=== PATIENT | male | born 1960 | race Caucasian/White ===

== ENCOUNTER 2017-05-13 14:12 | Outpatient (CLI) | payer MEDICARE | END 2017-05-13 14:13 | disposition home or self-care (01) | LOC: BICRAD 14:12 | PROVIDERS: ATTEND Dermatology | DX: R06.02 Shortness of breath (principal) | CPT/HCPCS: 71046 ==

== ENCOUNTER 2017-08-23 16:23 | Inpatient (IN) | payer MEDICARE, SELFPAY ==
[~2017-08-23 16:23] MED LIST: ISOVUE-370 76%-LOCM 1 ML ONE
[2017-08-23] MEDS ORDERED: Ketorolac Tromethamine 30 MG/ML VIAL ONE (17:04)
[2017-08-23 17:43] LABS: #Basophils 0.1 thou/uL (0.0-0.2); #Eosinphils 0.1 thou/uL (0.0-0.7); #Lymphocytes 2.5 thou/uL (1.20-3.40); #Neutrophils 8.6 thou/uL (1.40-6.50); %Basophils 0.5 % (0.0-1.0); %Eosinophils 0.5 % (0.0-10.0); %Lymphocytes 20.2 % (21.0-51.0); %Monocytes 8.3 % (0.0-10.0); %Neutrophils 70.5 % (42.0-75.0); Hemoglobin 16.4 g/dL (14.0-18.0); Mean Corpuscular HGB CONC 34.7 g/dL (32.0-36.0); Mean Corpuscular Hemoglobin 30.3 pg (27.0-31.0); Mean Corpuscular Volume 87.2 fl (80.0-94.0); Mean Platelet Volume 8.7 fL (7.4-10.4); Platelet Count 158 thou/uL (130-400); RBC Distribution Width 12.6 % (11.5-14.5); Red Blood Cell (RBC) Count 5.43 mill/uL (4.70-6.10); White Blood Cell (WBC) Count 12.2 thou/uL (4.8-10.8)
[2017-08-23] MEDS ORDERED: Ondansetron ODT 4 MG TAB ONE (17:43)
--- NOTE | 2017-08-23 17:57 | RAD ---
PORTABLE UPRIGHT FRONTAL CHEST RADIOGRAPH 08/23/17 COMPARISON: 05/13/17 HISTORY: Tachycardia. FINDINGS: No pneumothorax, pleural fluid, focal consolidation or alveolar edema. The cardiac silhouette is mild ly prominent suggesting magnification and/or enlargement. IMPRESSION: No acute findings. POS: [facility]
[2017-08-23 18:09] LABS: ALT (SGPT) 20 U/L (8-55); AST (SGOT) 16 U/L (5-34); Albumin 4.1 g/dL (3.5-5.0); Alkaline Phosphatase 167 U/L (40-150); Anion Gap 17 mmol/L (10-20); BUN (Urea Nitrogen) 25 mg/dL (8.4-25.7); Bilirubin, Total 0.2 mg/dL (0.2-1.2); CK (CPK) 37 U/L (30-200); Calc. Creatinine Clearance 0 mL/min (70-130); Calcium 9.7 mg/dL (7.8-10.44); Carbon Dioxide 20 mmol/L (22-29); Chloride 99 mmol/L (98-107); Estimated GFR-MDRD 66; Globulin 3.3 g/dL (2.4-3.5); Glucose 455 mg/dL (70-105); Lipase 27 U/L (8-78); Magnesium 1.8 mg/dL (1.6-2.6); Potassium 4.3 mmol/L (3.5-5.1); Protein, Total 7.4 g/dL (6.0-8.3); Sodium 132 mmol/L (136-145)
[2017-08-23 18:13] LABS: CKMB 1.8 ng/mL (0-6.6); Troponin I 0.126 ng/mL (< 0.028)
[2017-08-23 18:48] LABS: PTT 27.9 SEC (22.9-36.1); Prothrombin Time 13.3 SEC (12.0-14.7)
[2017-08-23] MEDS ORDERED: diphenhydrAMINE 50 MG/ML VIAL ONE (18:57)
[2017-08-23] MEDS ORDERED: Metoclopramide HCl 10 MG/2 ML VIAL ONE (18:57)
--- NOTE | 2017-08-23 19:22 | CT ---
HEAD CT WITHOUT CONTRAST 08/23/17 COMPARISON: 09/01/16 HISTORY: Headache. TECHNIQUE: Serial axial CT imaging at 5 mm intervals from vertex through skull base without contrast. FINDINGS: The imaged paranasal sinuses and mastoid air cells appear unremarkable. No acute osseous abnormality is noted. No intracranial hemorrhage, midline shift, mass effect or ventricular enlargement. IMPRESSION: No acute findings. POS: [facility]
[2017-08-23] MEDS ORDERED: Enoxaparin Sodium 100 MG/ML SYRINGE ONE (20:50)
[2017-08-23] MEDS ORDERED: Enoxaparin Sodium 40 MG/0.4 ML SYRINGE ONE ×2 (20:50→20:53)
[2017-08-23] MEDS ORDERED: Acetaminophen 500 MG TAB ONE (20:53)
--- NOTE | 2017-08-23 21:00 | CT ---
CT ANGIOGRAM OF THE CHEST 08/23/17 COMPARISON: 09/01/16 HISTORY: Dyspnea, chest pain, headache, cough and congestion. TECHNIQUE: Serial axial CT imaging is obtained at 2.5 mm intervals from the thoracic inlet through the upper abd omen with IV contrast per stone protocol. Coronal and sagittal 3D reformatted imaging obtained. FINDINGS: There is no axillary lymphadenopathy seen. No pericardial, mediastinal or pleural fluid. No mediastin al or hilar adenopathy. There is reflux of contrast media into the hepatic veins and IVC which may be on the basis of subopti mal cardiac output. There are large bilateral pulmonary emboli within the main pulmonary artery supplying the right lung and the left lung with extension into numerous segmental, subsegmental and lobar pulmonary arteries i nvolving bilateral upper lobes, bilateral lower lobes, and right middle lobe. When compared to prior exam, the right ventricle appears slightly dilated and there is flattening of the interventricular se ptum which could signify right heart strain. This could be best assessed via echocardiogram. There is no pneumothorax noted. The lung parenchyma demonstrates no acute finding on either side. No acute osseous abnormality. IMPRESSION: Extensive bilateral pulmonary arterial embolism involving bilateral main pulmonary arteries with exte nsion into lobar, segmental, and subsegmental pulmonary arteries throughout both lungs. Reflux of con trast media into the IVC and hepatic veins which may be on the basis of suboptimal cardiac output and prominence of right ventricle with flattening of interventricular system may signify change associat ed with right heart strain. Echocardiogram may be beneficial for further assessment. Bilateral pulmon everett emboli discussed with Dr. Mahajan at 7:35 p.m., 08/23/17. Code CR POS: [facility]
[2017-08-23] MEDS ORDERED: Bisacodyl 5 MG TAB PO PRN (22:23)
[2017-08-23] MEDS ORDERED: Acetaminophen 650 MG Suppository PR PRN (22:23)
[2017-08-23] MEDS ORDERED: Acetaminophen 325 MG TAB PO PRN (22:23)
[2017-08-23] MEDS ORDERED: Enoxaparin Sodium 120 MG/0.8 ML SYRINGE SC SCH (22:30)
[2017-08-23] MEDS ORDERED: Dextrose 50% Abboject 50 ML SYRINGE SLOW IVP PRN (22:37)
[2017-08-23] MEDS ORDERED: Dextrose 5% in Water 1,000 ML IV PRN (22:37)
[2017-08-23] MEDS ORDERED: Fentanyl 100 MCG/2 ML VIAL ONE (23:04)
--- NOTE | 2017-08-24 00:50 | HP ---
PRIMARY CARE PROVIDER: Denny Armas M.D., in [place]. CHIEF COMPLAINT: Shortness of breath. HISTORY OF PRESENT ILLNESS: Mr. Gupta is a pleasant 57-year-old gentleman who was seen at [facility] on 08/23/2017. He reports that he developed sudden onset shortness of breath around noon today. He reports shortnes s of breath with exertion. He denies having any chest pain at that time. He also reports having a h eadache at that time. He was seen by his primary care provider and sent to the emergency room. In [facility] emergency room, he developed chest pain, sharp, left-sided, 6-7/10, accompanied by ongoing headach e as well as shortness of breath. He denies any fevers or chills. He denies any nausea or vomiting. Approximately a year ago, he was diagnosed with unprovoked pulmonary embolism. He reportedly took El iquis for 6 months and has been off of Eliquis for the last 6 months. REVIEW OF SYSTEMS: All other systems were reviewed and were negative except for the pertinent positi ves noted above. PAST MEDICAL HISTORY: Deep vein thrombosis; pulmonary embolism; gastroesophageal reflux disease; mor bid obesity; diabetes mellitus, type 2; hypertension; and seizure disorder. PAST SURGICAL HISTORY: Right orchiectomy, hernia repair x2, right knee surgery x6. PSYCHIATRIC HISTORY: Pseudoseizure, anxiety, depression and bipolar disorder. SOCIAL HISTORY: He denies alcohol use or recreational drug use. He chews tobacco. FAMILY HISTORY: No family history of venous thromboembolism. ALLERGIES: MORPHINE. He reports that he tolerated Dilaudid, fentanyl and [place] in the past. CURRENT MEDICATIONS: Aspirin 81 mg daily, clonazepam 2 mg 4 times a day, lisinopril 10 mg daily, gli pizide 20 mg daily, phenytoin 400 mg daily, trazodone at bedtime, Januvia 100 mg daily, ranitid ine 150 mg 2 times a day, atorvastatin 20 mg daily, and risperidone 8 mg daily. PHYSICAL EXAMINATION: GENERAL: On examination, Mr. Gupta is awake and alert, in mild distress from chest discomfort. VITAL SIGNS: Blood pressure is 141/54, pulse is 118. He is breathing at rate of 17 and saturating 9 6% on 2 liters of oxygen. He is afebrile. He is obese. EYES: No scleral icterus. No conjunctival pallor. ENT: Moist mucosal membranes, no oropharyngeal erythema or exudates. NECK: Supple, nontender, normal range of movement. Trachea is midline. RESPIRATORY: Accessory muscles of breathing are not active. Chest wall movements are symmetric bila terally. Lungs are clear to auscultation without wheeze, rhonchi or crepitations. CARDIOVASCULAR: S1 and S2 are heard, regular and tachycardic. Peripheral pulses palpable. No carot id bruit, no pericardial rub. ABDOMEN: Distended, nontender, bowel sounds heard, no hepatomegaly, no splenomegaly. NEUROLOGIC: Cranial nerves II-XII intact. Deep tendon reflexes are 2+. MUSCULOSKELETAL: Power is 5/5 in all 4 extremities. Normal range of movement at all major extremity joints. SKIN: No rashes or subcutaneous nodules. MUSCULOSKELETAL: Power is 5/5 in all 4 extremities. Normal range of movement at all major extremity joints. LYMPHATIC: No cervical lymphadenopathy. PSYCHIATRIC: Normal mood, normal affect, patient is oriented to person, place, and time. LABORATORY DATA AND IMAGING: Mr. Gupta's labs and investigations were reviewed. I reviewed his el ectrocardiogram, which shows sinus tachycardia, no ST changes to suggest an acute coronary syndrome. I also reviewed his chest x-ray, which does not show any pulmonary infiltrates. He had noncontrast CT scan of the brain, which did not show any acute findings. He also had CT angiogram of the chest, which showed extensive bilateral pulmonary artery embolism involving bilateral main pulmonary arterie s with extension into lobar, segmental and subsegmental pulmonary arteries throughout both lungs. He has leukocytosis with 12,200 white cells, of which 8600 are neutrophils, INR 1.0, normal hemoglobin, normal platelet count, decreased sodium of 132, normal potassium, normal creatinine, elevated glucos e of 455, elevated alkaline phosphatase of 167, otherwise unremarkable liver profile and elevated tro ponin I of 0.126. BNP is normal at 55.7. ASSESSMENT AND PLAN: Mr. Gupta is a pleasant 57-year-old gentleman who was seen at [facility] on 08/23/2017. His problem list includes: 1. Pulmonary embolism: Mr. Gupta is presenting with bilateral pulmonary emboli. He will be admit juan manuel to the hospital for further management including anticoagulation. His case was discussed by the emergency room physician with water softener installer senior python developer. He has received 30 mg of Lovenox intravenously and 110 mg subcutaneously. We will continue him on 110 mg of Lovenox twice daily. 2. Diabetes mellitus: We will start him on Accu-Cheks and insulin sliding scale. We will resume ho me medications. 3. Dyslipidemia: Continue statin. 4. Hypertension: Monitor vital signs, titrate antihypertensives as needed. 5. Hyponatremia: Mild, rechecked. 6. Seizure disorder: Continue phenytoin. Many thanks for allowing me to participate in your patient's care. Please feel free to contact me wi th any questions or concerns. LEVEL OF RISK: High. LEVEL OF COMPLEXITY: High.
[2017-08-24 02:05] VITALS: BMI 32.2
[2017-08-24] MEDS: HumaLOG 300 UNITS/3 ML VIAL SC PRN ×4 (02:12→23:58)
[2017-08-24] MEDS: Fentanyl 100 MCG/2 ML VIAL SLOW IVP PRN ×2 (03:42→07:57)
[2017-08-24 04:13] LABS: #Eosinphils 0.1 thou/uL (0.0-0.7); #Lymphocytes 2.8 thou/uL (1.20-3.40); #Monocytes 0.6 thou/uL (0.11-0.59); #Neutrophils 4.6 thou/uL (1.40-6.50); %Basophils 0.2 % (0.0-1.0); %Eosinophils 0.8 % (0.0-10.0); %Lymphocytes 34.5 % (21.0-51.0); %Monocytes 7.3 % (0.0-10.0); %Neutrophils 57.1 % (42.0-75.0); Hemoglobin 15.3 g/dL (14.0-18.0); Mean Corpuscular HGB CONC 34.7 g/dL (32.0-36.0); Mean Corpuscular Hemoglobin 30.5 pg (27.0-31.0); Mean Corpuscular Volume 87.8 fl (80.0-94.0); Mean Platelet Volume 8.9 fL (7.4-10.4); PLT Morphology Comment Appears Decreased; Platelet Count 116 thou/uL (130-400); RBC Distribution Width 12.6 % (11.5-14.5); Red Blood Cell (RBC) Count 5.02 mill/uL (4.70-6.10); White Blood Cell (WBC) Count 8.1 thou/uL (4.8-10.8)
[2017-08-24 04:21] LABS: Anion Gap 16 mmol/L (10-20); BUN (Urea Nitrogen) 23 mg/dL (8.4-25.7); Calc. Creatinine Clearance 123 mL/min (70-130); Carbon Dioxide 19 mmol/L (22-29); Chloride 100 mmol/L (98-107); Estimated GFR-MDRD 76; Glucose 529 mg/dL (70-105); Potassium 4.1 mmol/L (3.5-5.1); Sodium 131 mmol/L (136-145)
[2017-08-24] MEDS ORDERED: HumaLOG 300 UNITS/3 ML VIAL SC SCH (05:15)
[2017-08-24] MEDS: Enoxaparin Sodium 120 MG/0.8 ML SYRINGE SC SCH ×2 (07:57→20:42)
[2017-08-24] MEDS ORDERED: Non-Formulary Item 1 EACH (Clonazepam [Clonazepam] 2 MG) PO SCH (13:00)
[2017-08-24] MEDS: Fioricet 325/50/40 mg Tablet PO PRN ×3 (13:29→22:31)
[2017-08-24] MEDS: clonazePAM 1 MG TAB PO SCH ×3 (13:29→20:42)
--- NOTE | 2017-08-24 15:26 | PDOC.PN ---
- Subjective Encounter Start Date: 08/24/17 Encounter Start Time: 11:00 Patient is seen today, alert and oriented. No other concerns. he has severe headache now. No h/o Migrains. - Objective MAR Reviewed: Yes Vital Signs & Weight: Vital Signs (12 hours) Temp Pulse Resp BP Pulse Ox 08/24/17 11:11 97.5 F L 98 19 165/82 H 95 08/24/17 08:00 97.5 F L 97 18 95 08/24/17 07:19 97.5 F L 97 18 127/72 95 08/24/17 03:46 108 H 18 139/91 H 94 L 08/24/17 03:28 97 Weight Weight 244 lb 1.6 oz I&O: 08/23/17 08/24/17 08/25/17 06:59 06:59 06:59 Intake Total 680 Output Total 425 Balance 255 Result Diagrams: 08/24/17 03:33 08/24/17 03:33 Additional Labs: Accuchecks 08/24/17 08/24/17 08/24/17 10:53 06:46 02:05 POC Glucose 339 H 370 H 458 H Radiology Reviewed by me: Yes Phys Exam - Physical Examination HEENT: PERRLA, moist MMs Neck: no nodes, no JVD Respiratory: no wheezing, no rales Cardiovascular: RRR, no significant murmur Gastrointestinal: soft, non-tender Musculoskeletal: no edema, pulses present Neurological: non-focal, normal sensation Psychiatric: normal affect Skin: no rash Dx/Plan (1) Headache Code(s): R51 - HEADACHE Status: Acute Comment: Patient has intractable headache Not relieved with Fentanyl and toradol patient is sking for demerol. 8 /10 intesity around the forehead. No nause or vomting.No neck stiffness, likely from hypoxi from PE. (2) DVT (deep venous thrombosis) Code(s): I82.409 - ACUTE EMBOLISM AND THOMBOS UNSP DEEP VN UNSP LOWER EXTREMITY Status: Acute Qualifiers: DVT location: lower extremity Chronicity: acute Laterality: right Comment: on lovenox (3) Non-cardiac chest pain Code(s): R07.89 - OTHER CHEST PAIN Status: Acute Comment: NSTEMI, likely from Stress from Bilateral PE, demeand ischemia. (4) Pulmonary emboli Code(s): I26.99 - OTHER PULMONARY EMBOLISM WITHOUT ACUTE COR PULMONALE Status : Acute Qualifiers: Chronicity: acute Acute cor pulmonale presence: without acute cor pulmonale Comment: Will contionue Lovenox, transition to Eliquis in AM if Echo looks fine. (5) Diabetes mellitus, type II Status: Chronic Qualifiers: Diabetes mellitus snf insulin use: without snf use Diabetes mellitus complication status: with hyperglycemia Qualified Code(s): E11.65 - Type 2 diabetes mellitus with hyperglycemia Comment: Continue on SSI, restat Glizide and Sitagliptin. (6) Hypertension Code(s): I10 - ESSENTIAL (PRIMARY) HYPERTENSION Status: Chronic Qualifiers: Hypertension type: essential hypertension Qualified Code(s): I10 - Essential (primary) hypertension Comment: well controlled. Continue To monitor. (7) Hypertriglyceridemia Code(s): E78.1 - PURE HYPERGLYCERIDEMIA Status: Chronic - Plan cont current plan of care, plan discussed w/ family, PT/OT, social security assessor, respiratory therapy, incentive spirometry, DVT proph w/lovenox * . - Discharge Day Encounter end time: 11:35 Review of Systems - Review of Systems Eyes: negative: Pain, Vision Change, Conjunctivae Inflammation, Eyelid Inflammation, Redness, Other ENT: negative: Ear Pain, Ear Discharge, Nose Pain, Nose Discharge, Nose Congestion, Mouth Pain, Mouth Swelling, Throat Pain, Throat Swelling, Other Respiratory: negative: Cough, Dry, Shortness of Breath, Hemoptysis, SOB with Excertion, Pleuritic Pain, Sputum, Wheezing Cardiovascular: negative: chest pain, palpitations, orthopnea, paroxysmal nocturnal dyspnea, edema, light headedness, other Gastrointestinal: negative: Nausea, Vomiting, Abdominal Pain, Diarrhea, Constipation, Melena, Hematochezia, Other Genitourinary: negative: Dysuria, Frequency, Incontinence, Hematuria, Retention , Other Musculoskeletal: negative: Neck Pain, Shoulder Pain, Arm Pain, Back Pain, Hand Pain, Leg Pain, Foot Pain, Other - Medications/Allergies Allergies/Adverse Reactions: Allergies Allergy/AdvReac Type Severity Reaction Status Date / Time morphine Allergy Severe Verified 08/24/17 02:07 Medications: Current Medications Acetaminophen (Tylenol) 650 mg PO Q4H PRN PRN Reason: Headache/Fever or Pain Acetaminophen (Tylenol) 650 mg [place] Q4H PRN PRN Reason: Headache/Fever or Pain Acetaminophen/Butalbital/Caffeine (Fioricet) 1 tab PO Q4H PRN PRN Reason: Headache Stop: 08/29/17 12:48 Last Admin: 08/24/17 13:29 Dose: 1 tab Alogliptin Benzoate (Alogliptin) 25 mg PO QPM [facility] Aspirin (Ecotrin) 81 mg PO DAILY [facility] Atorvastatin Calcium (Lipitor) 10 mg PO HS [facility] Bisacodyl (Dulcolax) 10 mg PO DAILYPRN PRN PRN Reason: Constipation Clonazepam (Klonopin) 2 mg PO QID [facility] Last Admin: 08/24/17 13:29 Dose: 2 mg Dextrose/Water (Dextrose 50%) 25 gm SLOW IVP PRN PRN PRN Reason: Hypoglycemia Enoxaparin Sodium (Lovenox) 110 mg SC 0900,2100 [facility] Last Admin: 08/24/17 07:57 Dose: 110 mg Famotidine (Pepcid) 20 mg PO DAILY [facility] Fentanyl (Sublimaze) 12.5 mcg SLOW IVP Q4H PRN PRN Reason: Pain 7-10 Last Admin: 08/24/17 07:57 Dose: 12.5 mcg Glipizide (Glucotrol) 20 mg PO DAILY-[facility] Glucagon (Glucagon) 1 mg IM PRN PRN PRN Reason: Hypoglycemia Dextrose/Water (D5w) 1,000 mls @ 0 mls/hr IV .Q0M PRN; As Directed PRN Reason: Hypoglycemia Insulin Human Lispro (Humalog) 0 units SC .MILD SLIDING SCALE PRN PRN Reason: Mild Correctional Scale Last Admin: 08/24/17 11:57 Dose: 5 unit Lisinopril (Zestril) 10 mg PO DAILY [facility] Phenytoin Sodium (Dilantin Er) 400 mg PO HS [facility] Risperidone (Risperidone) 8 mg PO HS [facility] Sodium Chloride (Flush - Normal Saline) 10 ml IVF Q12HR [facility] Sodium Chloride (Flush - Normal Saline) 10 ml IVF PRN PRN PRN Reason: Saline Flush Trazodone HCl (Desyrel) 100 mg PO HS [facility]
--- NOTE | 2017-08-24 19:51 | CON ---
DATE OF CONSULTATION: 08/24/2017 HISTORY OF PRESENT ILLNESS: Mr. Gupta is pleasant gentleman who had relatively sudden onset of shortness of breath. Patient has been having headaches since yesterday as well. He does have a history of migraines, but had not had one in over 20 years. He was seen by his primary care physician. His tells me that his heart rate was over 200 beats per minute in the primary care doctor's office, so she drove him to the emergency room from the office. He subsequently has been admitted. PAST MEDICAL HISTORY: 1. Remarkable for pulmonary embolism in the past which was treated with Eliquis. 2. Sister tells me there is family history of hemochromatosis. She tells me he has never shared that with his doctor, so it is unknown whether or not he has it. She says she is a carrier with gene. 3. History of reflux disease. 4. History of diabetes. 5. History of hypertension. 6. History of seizure disorder. 7. History of an orchiectomy. 8. History of herniorrhaphy. 9. History of multiple knee surgeries. FAMILY HISTORY: Negative for lung disease in early age. SOCIAL HISTORY: ALLERGIES: Reports MORPHINE allergy. MEDICATION: Prior to admission he is on aspirin, Klonopin, lisinopril, glipizide, phenytoin, trazodone, Januvia, ranitidine, atorvastatin, and Risperdal. REVIEW OF SYSTEMS: Twelve point review of system is otherwise negative. He denies any visual field defects. PHYSICAL EXAMINATION: VITAL SIGNS: He is afebrile, heart rate is 97, respiratory 20, oximetry is 92 on room air it is 95 on 2 liters earlier, blood pressure 144/77. HEENT: Pupils are equal. Sclerae is anicteric. NECK: Supple. LUNGS: Clear. HEART: Regular rhythm. S1 and S2 are normal. ABDOMEN: Soft and nontender. EXTREMITIES: Without clubbing, cyanosis asymmetry or edema. LABORATORY DATA: White count 8.1, hemoglobin 15.3, platelets 116. Sodium 131, creatinine 4.1, chloride 100, bicarb 19, BUN 23, creatinine 1.01. IMPRESSION: Glucoses have all been between 300 and 500s a day. I have recommended they changes insulin to moderate sliding scale. He says his blood glucoses normally very well controlled at home. CT pulmonary angiogram showed extensive bilateral thromboembolic abnormalities. I was contacted by the emergency physician last night, asking whether or not TPA should be administered. He had no hemodynamic instability other than a resting tachycardia in the ER, so I recommended IV Lovenox 30 mg, followed by 1 mg/kg subcu q.12 hours. He is clearly clinically better, but I would continue with Lovenox for now given the extensive nature of his disease. He has been seen by Dr. Otoole in the past. We will see him again tomorrow. I do not think he will be ready for discharge tomorrow in my opinion, given the extent of his thromboembolic disease. I have asked him to get his to bring up the CPAP to wear it at night. This is a 70 minute consult with greater than 50% of the time on the unit with coordination of care. EMILIA
[2017-08-24] MEDS: Alogliptin 25 MG TAB PO SCH (20:41)
[2017-08-24] MEDS: traZODone HCl 50 MG TAB PO SCH (20:41)
[2017-08-24] MEDS: Atorvastatin Calcium 10 MG TAB PO SCH (20:42)
[2017-08-24] MEDS ORDERED: Non-Formulary Item 1 EACH (Trazodone [Trazodone] 100 MG) PO SCH (21:00)
[2017-08-24] MEDS ORDERED: Ketorolac Tromethamine 30 MG/ML VIAL IVP SCH (21:45)
[2017-08-25 03:12] LABS: Albumin 3.5 g/dL (3.5-5.0)
[2017-08-25 03:56] LABS: Dilantin 7.4 ug/mL (10.0-20.0)
[2017-08-25] MEDS: glipiZIDE 10 MG TAB PO SCH (07:47)
[2017-08-25] MEDS: HumaLOG 300 UNITS/3 ML VIAL SC PRN ×4 (08:24→20:57)
[2017-08-25] MEDS: Enoxaparin Sodium 120 MG/0.8 ML SYRINGE SC SCH ×2 (08:25→20:13)
[2017-08-25] MEDS: Aspirin 81 mg Enteric Coated Tablet PO SCH (08:26)
[2017-08-25] MEDS: clonazePAM 1 MG TAB PO SCH ×4 (08:27→20:15)
[2017-08-25] MEDS: Lisinopril 10 MG TAB PO SCH (08:27)
[2017-08-25] MEDS ORDERED: Famotidine 20 MG TAB PO SCH (09:00)
[2017-08-25] MEDS ORDERED: Lisinopril 20 MG TAB PO SCH (09:00)
[2017-08-25] MEDS ORDERED: RANITIDINE HCL 150 MG PO SCH (09:00)
[2017-08-25] MEDS ORDERED: glipiZIDE 5 MG TAB PO SCH (09:00)
[2017-08-25] MEDS ORDERED: Insulin Detemir 100 UNITS/ML 15 UNITS in Pre-Filled Syringe 1 EACH SC SCH (09:30)
[2017-08-25] MEDS: Meperidine HCl/PF 25 MG/ML VIAL SLOW IVP PRN ×2 (12:24→18:52)
--- NOTE | 2017-08-25 13:10 | PDOC.PN ---
- Subjective Encounter Start Date: 08/25/17 Encounter Start Time: 10:00 Patient is seen today, alert and oriented. He has persistant headache. He had Seizure last night and has low Dilantin levels. - Objective MAR Reviewed: Yes Vital Signs & Weight: Vital Signs (12 hours) Temp Pulse Resp BP BP Pulse Ox 08/25/17 11:54 97.4 F L 96 18 136/79 94 L 08/25/17 07:41 98.4 F 95 18 129/77 96 08/25/17 03:38 97.6 F 87 15 162/92 H 97 Weight Weight 244 lb 2 oz I&O: 08/24/17 08/25/17 08/26/17 06:59 06:59 06:59 Intake Total 680 1440 Output Total 425 Balance 255 1440 Result Diagrams: 08/24/17 03:33 08/24/17 03:33 Additional Labs: Accuchecks 08/25/17 08/25/17 08/25/17 11:18 05:47 02:24 POC Glucose 290 H 305 H 300 H 08/24/17 08/24/17 08/24/17 23:56 21:19 16:26 POC Glucose 353 H 328 H 256 H Radiology Reviewed by me: Yes Phys Exam - Physical Examination HEENT: PERRLA, moist MMs Neck: no nodes, no JVD Respiratory: no wheezing, no rales Cardiovascular: RRR, no significant murmur Gastrointestinal: soft, non-tender Musculoskeletal: no edema, pulses present Neurological: non-focal Skin: no rash, normal turgor Dx/Plan (1) Headache Code(s): R51 - HEADACHE Status: Acute Comment: Patient has intractable headache Not relieved with Fentanyl and toradol patient is sking for demerol. 8 /10 intesity around the forehead. No nause or vomting.No neck stiffness, likely from hypoxi from PE. Will do demerol for pain, CT head was negative, Valentín consult Neurology. (2) DVT (deep venous thrombosis) Code(s): I82.409 - ACUTE EMBOLISM AND THOMBOS UNSP DEEP VN UNSP LOWER EXTREMITY Status: Acute Qualifiers: DVT location: lower extremity Chronicity: acute Laterality: right Comment: on lovenox (3) Non-cardiac chest pain Code(s): R07.89 - OTHER CHEST PAIN Status: Acute Comment: NSTEMI, likely from Stress from Bilateral PE, demeand ischemia. (4) Pulmonary emboli Code(s): I26.99 - OTHER PULMONARY EMBOLISM WITHOUT ACUTE COR PULMONALE Status : Acute Qualifiers: Chronicity: acute Acute cor pulmonale presence: without acute cor pulmonale Comment: Will contionue Lovenox, transition to Eliquis at discharge, Echo Pending. (5) Diabetes mellitus, type II Status: Chronic Qualifiers: Diabetes mellitus custodial insulin use: without custodial use Diabetes mellitus complication status: with hyperglycemia Qualified Code(s): E11.65 - Type 2 diabetes mellitus with hyperglycemia Comment: Continue on SSI, restat Glizide and Sitagliptin. (6) Hypertension Code(s): I10 - ESSENTIAL (PRIMARY) HYPERTENSION Status: Chronic Qualifiers: Hypertension type: essential hypertension Qualified Code(s): I10 - Essential (primary) hypertension Comment: well controlled. Continue To monitor. (7) Hypertriglyceridemia Code(s): E78.1 - PURE HYPERGLYCERIDEMIA Status: Chronic (8) Seizure Code(s): R56.9 - UNSPECIFIED CONVULSIONS Status: Acute Comment: Patient has low Dilantin levsl, Restarted Dilantin, Will consult Neurology, mariano Seizure patient. - Plan cont current plan of care, plan discussed w/ family, PT/OT, DVT proph w/lovenox * . - Discharge Day Encounter end time: 10:35 Review of Systems - Review of Systems Eyes: negative: Pain, Vision Change, Conjunctivae Inflammation, Eyelid Inflammation, Redness, Other ENT: negative: Ear Pain, Ear Discharge, Nose Pain, Nose Discharge, Nose Congestion, Mouth Pain, Mouth Swelling, Throat Pain, Throat Swelling, Other Respiratory: negative: Cough, Dry, Shortness of Breath, Hemoptysis, SOB with Excertion, Pleuritic Pain, Sputum, Wheezing Cardiovascular: negative: chest pain, palpitations, orthopnea, paroxysmal nocturnal dyspnea, edema, light headedness, other Gastrointestinal: negative: Nausea, Vomiting, Abdominal Pain, Diarrhea, Constipation, Melena, Hematochezia, Other Musculoskeletal: negative: Neck Pain, Shoulder Pain, Arm Pain, Back Pain, Hand Pain, Leg Pain, Foot Pain, Other - Medications/Allergies Allergies/Adverse Reactions: Allergies Allergy/AdvReac Type Severity Reaction Status Date / Time morphine Allergy Severe Verified 08/24/17 02:07 Medications: Current Medications Acetaminophen (Tylenol) 650 mg PO Q4H PRN PRN Reason: Headache/Fever or Pain Acetaminophen (Tylenol) 650 mg [place] Q4H PRN PRN Reason: Headache/Fever or Pain Acetaminophen/Butalbital/Caffeine (Fioricet) 1 tab PO Q4H PRN PRN Reason: Headache Stop: 08/29/17 12:48 Last Admin: 08/24/17 22:31 Dose: 1 tab Alogliptin Benzoate (Alogliptin) 25 mg PO QPM [facility] Last Admin: 08/24/17 20:41 Dose: 25 mg Aspirin (Ecotrin) 81 mg PO DAILY [facility] Last Admin: 08/25/17 08:26 Dose: 81 mg Atorvastatin Calcium (Lipitor) 10 mg PO HS [facility] Last Admin: 08/24/17 20:42 Dose: 10 mg Bisacodyl (Dulcolax) 10 mg PO DAILYPRN PRN PRN Reason: Constipation Clonazepam (Klonopin) 2 mg PO QID [facility] Last Admin: 08/25/17 12:25 Dose: 2 mg Dextrose/Water (Dextrose 50%) 25 gm SLOW IVP PRN PRN PRN Reason: Hypoglycemia Enoxaparin Sodium (Lovenox) 110 mg SC 0900,2100 [facility] Last Admin: 08/25/17 08:25 Dose: 110 mg Famotidine (Pepcid) 20 mg PO DAILY [facility] Last Admin: 08/25/17 08:27 Dose: 20 mg Fentanyl (Sublimaze) 12.5 mcg SLOW IVP Q4H PRN PRN Reason: Pain 7-10 Last Admin: 08/24/17 07:57 Dose: 12.5 mcg Glipizide (Glucotrol) 20 mg PO DAILY[facility] Last Admin: 08/25/17 07:47 Dose: 20 mg Glucagon (Glucagon) 1 mg IM PRN PRN PRN Reason: Hypoglycemia Dextrose/Water (D5w) 1,000 mls @ 0 mls/hr IV .Q0M PRN; As Directed PRN Reason: Hypoglycemia Insulin Detemir 15 units/ (Miscellaneous Medication) 0.15 mls @ 0 mls/hr SC QAM [facility] Insulin Human Lispro (Humalog) 0 units SC .MILD SLIDING SCALE PRN PRN Reason: Mild Correctional Scale Last Admin: 08/25/17 11:43 Dose: 4 unit Lisinopril (Zestril) 10 mg PO DAILY [facility] Last Admin: 08/25/17 08:27 Dose: 10 mg Meperidine HCl (Demerol) 25 mg SLOW IVP Q6H PRN PRN Reason: Severe Pain (7-10) Last Admin: 08/25/17 12:24 Dose: 25 mg Phenytoin Sodium (Dilantin Er) 400 mg PO HS [facility] Last Admin: 08/24/17 20:41 Dose: 400 mg Risperidone (Risperidone) 8 mg PO HS [facility] Sodium Chloride (Flush - Normal Saline) 10 ml IVF Q12HR [facility] Last Admin: 08/25/17 08:27 Dose: 10 ml Sodium Chloride (Flush - Normal Saline) 10 ml IVF PRN PRN PRN Reason: Saline Flush Trazodone HCl (Desyrel) 100 mg PO HS [facility] Last Admin: 08/24/17 20:41 Dose: 100 mg
--- NOTE | 2017-08-25 13:55 | PRG ---
DATE OF SERVICE: 08/25/2017 SERVICE: Pulmonary Medicine. INTERVAL HISTORY: The patient is doing fine from a respiratory standpoint. He is breathing comforta darling. He denies any chest pain, nausea or vomiting. Since he has been in the hospital, his anti-seiz ure drugs have been held. Unfortunately, he had seizure overnight, and once again this morning he casas s been reloaded with his medication. Since then, he has not had any additional seizure events. PHYSICAL EXAMINATION: VITAL SIGNS: Afebrile, pulse 96, blood pressure 136/79, respirations 18, saturation 94% on room air. GENERAL: The patient is awake, alert, no apparent distress. LUNGS: Decent air entry without prolonged expiratory phase, wheezing, rhonchi or crackles. HEART: Normal rate and regular. ABDOMEN: Soft, nontender, nondistended. Bowel sounds are positive. MUSCULOSKELETAL: No cyanosis or clubbing. There is no pitting in the bilateral lower extremities. NEUROLOGIC: Grossly nonfocal. LABORATORY DATA: WBC 8.1, hemoglobin 15.3, platelets 116,000 and dropping slightly. INR 1.0. Album in 3.5. Glucose ranges from 290-353. Phenytoin level 7.4. ASSESSMENT: 1. Acute pulmonary embolism, recurrent. 2. Weight loss. 3. Type 2 diabetes mellitus, poorly controlled. 4. Obstructive sleep apnea. PLAN: We will continue our anticoagulation. The patient is doing quite well on this. I will repeat a BNP and troponin. Assuming everything is trending in the correct direction, he will be prepared f or discharge in the morning. Pulmonary or Critical Care will continue to follow along the way.
[2017-08-25] MEDS: Alogliptin 25 MG TAB PO SCH (20:13)
[2017-08-25] MEDS: Famotidine 20 MG TAB PO SCH (20:13)
[2017-08-25] MEDS: Atorvastatin Calcium 10 MG TAB PO SCH (20:13)
[2017-08-25] MEDS: traZODone HCl 50 MG TAB PO SCH (20:13)
[2017-08-25] MEDS ORDERED: risperiDONE 1 MG TAB PO SCH (21:00)
[2017-08-26] MEDS: Meperidine HCl/PF 25 MG/ML VIAL SLOW IVP PRN (03:54)
[2017-08-26 05:22] LABS: Troponin I Less than 0.010 ng/mL (< 0.028)
[2017-08-26 07:45] VITALS: TEMP 97.5
[2017-08-26] MEDS: HumaLOG 300 UNITS/3 ML VIAL SC PRN ×2 (08:24→12:07)
[2017-08-26] MEDS: Enoxaparin Sodium 120 MG/0.8 ML SYRINGE SC SCH (08:27)
[2017-08-26] MEDS: Lisinopril 10 MG TAB PO SCH (08:27)
[2017-08-26] MEDS: clonazePAM 1 MG TAB PO SCH ×2 (08:27→14:17)
[2017-08-26] MEDS: Famotidine 20 MG TAB PO SCH (08:27)
[2017-08-26] MEDS: Aspirin 81 mg Enteric Coated Tablet PO SCH (08:27)
[2017-08-26] MEDS: glipiZIDE 10 MG TAB PO SCH (08:28)
--- NOTE | 2017-08-26 08:45 | CON ---
DATE OF CONSULTATION: 08/25/2017. NEUROLOGIC FOLLOWUP Mr. Gupta was admitted with acute onset of lightheadedness and shortness of breath. He was diagnos ed with a pulmonary embolus. After admission, they failed to continue his Dilantin for 2 nights. He had a seizure. He has now been loaded with 1000 mg of fosphenytoin. He needs to restart his Dilant in 400 mg at night. I will be available if there are any further problems.
[2017-08-26] MEDS ORDERED: Insulin Detemir 100 UNITS/ML 15 UNITS in Pre-Filled Syringe 1 EACH SC SCH (09:00)
[2017-08-26] MEDS: Fentanyl 100 MCG/2 ML VIAL SLOW IVP PRN (11:09)
[2017-08-26 14:04] VITALS: BP 130/74
[2017-08-26 14:09] LABS: DRVVT Confirm 27.9; DRVVT Ratio 0.9 Ratio (1.2 or Less); DRVVT Screen 26.1 SEC (20-50)
--- NOTE | 2017-08-26 15:46 | DIS ---
DATE OF ADMISSION: 08/23/2017 DATE OF DISCHARGE: 08/26/2017 ADMITTING DIAGNOSIS: Acute bilateral pulmonary embolism. DISCHARGE DIAGNOSIS: Acute bilateral pulmonary embolism. SECONDARY DIAGNOSES: 1. Acute hypoxic respiratory failure. 2. Intractable headache. 3. Hyperglycemia with some type 2 diabetes mellitus. 4. Hypertension and history of seizure disorder. 5. Hyponatremia. CONSULTANTS INVOLVED IN THE CARE: 1. Pulmonary, Dr. John Shields and Dr. Jose Otoole. 2. Neurology, Dr. Levar Land. INVESTIGATIONS DONE DURING THIS ADMISSION: 1. CTA of the chest showing evidence of a very extensive bilateral pulmonary embolism. 2. Brain CT was done, did not show any evidence of hemorrhage. 3. Echocardiogram was showing good ejection fraction of 55% to 60% with no right ventricular strain. HISTORY OF PRESENT ILLNESS AND HOSPITAL COURSE: In brief, this is a 57-year-old white male with a kn own past medical history of pulmonary embolism and was off of Eliquis and he developed a sudden onset of chest pain associated with shortness of breath on exertion and was associated with some severe he adaches. The patient was seen in the ER and had a CT of the chest, which showed an evidence of massi ve pulmonary embolism and was mildly hypoxic, so the patient was transferred to the ICU for further e valuation and had a 2D echo, which did not show any evidence of a right heart strain, but the patient had a massive PE, so he was started on Lovenox 1 mg/kg b.i.d. and was closely monitored for any deco mpensation because of the secondary effects from the hypoxia. The patient was having severe headache s and his Dilantin was also missed during the hospitalization so that he developed a seizure episode overnight and which recovered very well. His Dilantin levels were initially checked at 7.6 and after the seizure, his Dilantin levels was rechecked at the day of discharge was 10.2. The patient wanted to go home as he feels his headache would be better if he goes home and his oxygen ation was good at room air, saturating 98%. The patient is discharged home in stable condition. PHYSICAL EXAMINATION: VITAL SIGNS: Blood pressures are 129/77, heart rate is 88, respiration is 18, and saturation 98% on room air. GENERAL: The patient is moderately built, moderately nourished, does not appear to be in acute distr ess. CARDIOVASCULAR: S1 and S2 normal. No murmurs, rubs, or gallops. LUNGS: Bilateral air entry was equal. No wheezing, no crackles. ABDOMEN: Soft, nontender. No guarding, no rebound tenderness. Bowel sounds normal. MUSCULOSKELETAL: No calf tenderness. No pedal edema. No joint tenderness. No joint swelling. DISCHARGE INSTRUCTIONS: Continue activity as tolerated. Advised to follow up with the primary care physician in 1 week. Advised to follow up with Pulmonary in 2 weeks. Advised to return back to the ER if the patient develops any persistent chest pains or any worsening shortness of breath. HOME MEDICATIONS: 1. Lasix 40 mg p.o. as needed. 2. Aspirin 81 mg p.o. daily. 3. Atorvastatin 10 mg p.o. at bedtime. 4. Clonazepam 2 mg p.o. q.i.d. 5. Glipizide 20 mg p.o. daily. 6. Lisinopril 10 mg p.o. daily. 7. Phenytoin 400 mg at bedtime. 8. Ranitidine 150 mg p.o. daily. 9. Risperidone 8 mg p.o. at bedtime. 10. Sitagliptin 100 mg p.o. at bedtime. 11. Trazodone 100 mg p.o. at bedtime. I spent more than 35 minutes of this patient on the day of discharge.
--- NOTE | 2017-08-26 16:34 | PRG ---
DATE OF SERVICE: 08/26/2017 SERVICE: Pulmonary Medicine. INTERVAL HISTORY: The patient is doing fine from a respiratory standpoint. He denies any current ch est pain, nausea, vomiting, fevers, chills, shortness of breath. He is essentially in his usual stat e of health. The only thing he wants to do is get out of the hospital. His seizure 2 days ago becau se his medications were held on presentation. His levels have returned to the normal range. That be ing said, we know this home dose of medications control his seizures. PHYSICAL EXAMINATION: VITAL SIGNS: Afebrile, pulse 99, blood pressure 129/77, respirations 16, and saturation 97% on room air. GENERAL: The patient is awake and alert, in no apparent distress. LUNGS: Excellent air entry. There is no prolonged expiratory phase, wheezing, rhonchi, or crackles present. HEART: Normal rate, regular. ABDOMEN: Soft, nontender, nondistended. Bowel sounds are positive. MUSCULOSKELETAL: No cyanosis or clubbing. No pitting in the bilateral lower extremities. NEUROLOGIC: Grossly nonfocal. LABORATORY DATA: BNP and troponin remain low and unremarkable. Blood sugar ranges from 271-346. Ph enytoin is 10.6. IMAGING: Echocardiogram demonstrates 55% to 60% ejection fraction. The right ventricle is moderatel y enlarged, but apparently is okay. There is moderate elevation of the pulmonary artery pressures. Small pericardial effusion is evident. ASSESSMENT: 1. Acute pulmonary embolism, recurrent. 2. Weight loss. 3. Type 2 diabetes mellitus, poorly controlled. 4. Obstructive sleep apnea. 5. Seizure disorder, with acute seizure secondary to not taking medications on admission to [facility]. PLAN: We will continue anticoagulation, indefinitely. There is no significant biochemical markers s uggesting there is significant stress on the right ventricle. The echocardiogram shows a moderately elevated right ventricular pulmonary artery pressure. This will be reassessed in the outpatient sett ing. From my perspective, the patient is stable for transition home. If he stays in house, we will continue to follow, but truth be told, everything is set up for him to transition home safely.
== END 2017-08-26 15:35 | disposition home or self-care (01) | DRG 175 ==
LOC: ERS 16:23 → ERHOLD 19:45 → IMCU/EMU 08-24 02:01 → 2NO 08-24 17:42
PROVIDERS: ADMIT Internal Medicine; ATTEND Internal Medicine
DX: I26.99 Other pulmonary embolism without acute cor pulmonale (principal); J96.01 Acute respiratory failure with hypoxia; E87.1 Hypo-osmolality and hyponatremia; I82.401 Acute embolism and thrombosis of unspecified deep veins of right lower extremity; K21.9 Gastro-esophageal reflux disease without esophagitis; E66.01 Morbid (severe) obesity due to excess calories; I10 Essential (primary) hypertension; G40.909 Epilepsy, unspecified, not intractable, without status epilepticus; E78.5 Hyperlipidemia, unspecified; R63.4 Abnormal weight loss; G47.33 Obstructive sleep apnea (adult) (pediatric); E11.65 Type 2 diabetes mellitus with hyperglycemia; R51 Headache; Z86.718 Personal history of other venous thrombosis and embolism; Z86.711 Personal history of pulmonary embolism
CPT/HCPCS: 36415; 36416; 70450; 71045; 71275; 80048; 80053; 80185; 81240; 81241; 82040; 82550; 82553; 83690; 83735; 83880; 84484; 85025; 85610; 85613; 85730; 93005; 93306; 96365; 96372; 96375; A4216; J1200; J1650; J1815; J1885; J2175; J2765; J3010; J7050; Q0162; Q2009

== ENCOUNTER 2017-09-15 10:46 | Outpatient (CLI) | payer MEDICARE ==
--- NOTE | 2017-09-15 12:46 | RAD ---
FRONTAL AND LATERAL IMAGING OF THE CHEST: Date: 09-15-17 Comparison: None. History: Shortness of breath. FINDINGS: There is no pneumothorax, pleural fluid, focal consolidation or alveolar edema. Heart and mediastinal contours appear grossly unremarkable as do the osseous structures. IMPRESSION: No acute findings. POS: [facility]
== END 2017-09-15 10:47 | disposition home or self-care (01) ==
LOC: RAD 10:46
PROVIDERS: ATTEND Internal Medicine
DX: R06.00 Dyspnea, unspecified (principal)
CPT/HCPCS: 71046

== ENCOUNTER 2017-10-27 15:02 | Outpatient (CLI) | payer MEDICARE ==
--- NOTE | 2017-10-27 16:09 | ULT ---
ULTRASOUND TESTICULAR DOPPLER 10/27/17 HISTORY: Epididymitis. COMPARISON: None. TECHNIQUE: Real time bustos scale, color doppler with spectral analysis of the testicles was performed. FINDINGS: The right testicle has been previously removed. Left testicle has normal echotexture and vascularity. Normal appearance of the epididymis. Small volume hydrocele. IMPRESSION: Normal examination of the left testicle. POS: [facility]
== END 2017-10-27 15:03 | disposition home or self-care (01) ==
LOC: SCSULT 15:02
PROVIDERS: ATTEND Physician Assistant
DX: N45.1 Epididymitis (principal)
CPT/HCPCS: 76870; 93976

== ENCOUNTER 2017-11-04 10:06 | Outpatient (CLI) | payer MEDICARE | END 2017-11-04 10:07 | disposition home or self-care (01) | LOC: BICCT 10:06 | PROVIDERS: ATTEND Physician Assistant | DX: R10.9 Unspecified abdominal pain (principal); M47.896 Other spondylosis, lumbar region | CPT/HCPCS: 74176 ==

== ENCOUNTER 2017-11-14 09:32 | Outpatient (CLI) | payer MEDICARE ==
--- NOTE | 2017-11-14 13:31 | CT ---
CT ANGIOGRAM ABDOMEN WITH AND WITHOUT IV CONTRAST: Date: 11-14-17 History: Patient complains of lower abdominal pain for past two months. Comparison: CT abdomen, 07-22-16. FINDINGS: There is a small pericardial effusion identified which has slightly increased from the prior exam. There is linear density seen at the right lung base, likely related to mild scarring. There is atelec tasis in the region of the lingula. Degenerative changes are seen in the spine with bilateral pars defects at L5, also noted on the prior exam. The liver, spleen, pancreas, bilateral adrenal glands, and kidneys demonstrate a normal CT appearance for arterial phase of imaging. The abdominal aorta is normal in caliber without evidence of aortic dissection. Minimal atherosclerot ic plaque and calcifications are seen in the abdominal aorta as well as involving the visualized eliecer c arteries. The celiac, superior mesenteric, and inferior mesenteric arteries are patent. Single patent bilateral renal arteries are visualized. No free fluid, fluid collection, or lymphadenopathy is seen in the abdomen. A small to moderate amoun t of retained fecal material is seen throughout the colon. IMPRESSION: 1. Patent mesenteric arteries. 2. Single patent bilateral renal arteries. 3. Small pericardial effusion. 4. Post-surgical changes anterior abdomen with mesh material in place. There is a small fat containin g supraumbilical hernia noted. 5. No acute findings in the abdomen or pelvis. 6. Bilateral pars defects at L5 with suggestion of grade I anterolisthesis of L5 on S1. POS: [facility]
== END 2017-11-14 09:33 | disposition home or self-care (01) ==
LOC: SCSCT 09:32
PROVIDERS: ATTEND Internal Medicine Gastroenterology
DX: R30.0 Dysuria (principal); R10.2 Pelvic and perineal pain; R10.9 Unspecified abdominal pain; I31.3 Pericardial effusion (noninflammatory); K42.9 Umbilical hernia without obstruction or gangrene; Z98.890 Other specified postprocedural states
CPT/HCPCS: 74174; 74175

== ENCOUNTER 2018-02-11 00:57 | Emergency (ER) | payer MEDICARE ==
[2018-02-11 01:20] LABS: Bilirubin Negative (Negative); Blood, Urine Small (Negative); Clarity CLEAR (Clear); Glucose, Urine (Dipstick) >=1000 mg/dL (Negative); Leukocyte Negative (Negative); Nitrite Negative (Negative); Protein, Urine (Dipstick) Negative (Neg-Trace); Specific Gravity, Urine 1.042 (1.002-1.036); Urobilinogen 0.2 mg/dL (0.2-1.0); pH, Urine 5.5 (5.0-9.0)
[2018-02-11 01:21] LABS: Bacteria/HPF None Seen HPF (None Seen); Hyaline Casts/LPF 0-3 HYALINE CAST LPF (0-3 Hyaline); Squamous Epithelial None Seen HPF (0-3)
[2018-02-11 01:24] LABS: #Basophils 0.1 thou/uL (0.0-0.2); #Eosinphils 0.1 thou/uL (0.0-0.7); #Lymphocytes 2.7 thou/uL (1.20-3.40); #Monocytes 0.5 thou/uL (0.11-0.59); #Neutrophils 3.7 thou/uL (1.40-6.50); %Basophils 1.4 % (0.0-1.0); %Eosinophils 1.6 % (0.0-10.0); %Lymphocytes 38.2 % (21.0-51.0); %Monocytes 7.4 % (0.0-10.0); %Neutrophils 51.5 % (42.0-75.0); Hemoglobin 16.3 g/dL (14.0-18.0); Mean Corpuscular Volume 88.3 fL (78.0-98.0); Mean Platelet Volume 8.3 fL (7.4-10.4); Platelet Count 191 thou/uL (130-400); RBC Distribution Width 12.9 % (11.5-14.5); Red Blood Cell (RBC) Count 5.41 mill/uL (4.70-6.10); White Blood Cell (WBC) Count 7.1 thou/uL (4.8-10.8)
[2018-02-11 01:43] LABS: ALT (SGPT) 19 U/L (8-55); AST (SGOT) 13 U/L (5-34); Albumin 4.2 g/dL (3.5-5.0); Alkaline Phosphatase 154 U/L (40-150); Anion Gap 14 mmol/L (10-20); BUN (Urea Nitrogen) 14 mg/dL (8.4-25.7); Bilirubin, Total 0.2 mg/dL (0.2-1.2); CK (CPK) 36 U/L (30-200); Calc. Creatinine Clearance 0 mL/min (70-130); Carbon Dioxide 25 mmol/L (22-29); Chloride 97 mmol/L (98-107); Estimated GFR-MDRD 69; Globulin 3.4 g/dL (2.4-3.5); Glucose 468 mg/dL (70-105); Lipase 21 U/L (8-78); Potassium 4.2 mmol/L (3.5-5.1); Protein, Total 7.6 g/dL (6.0-8.3); Sodium 132 mmol/L (136-145)
[2018-02-11 02:31] LABS: Magnesium 2.1 mg/dL (1.6-2.6); Phosphorus 3.1 mg/dL (2.3-4.7)
[2018-02-11] MEDS ORDERED: Fentanyl 100 MCG/2 ML VIAL ONE (04:27)
[2018-02-11] MEDS ORDERED: Morphine 4 MG/ML VIAL ONE (05:49)
[2018-02-11] MEDS ORDERED: Insulin Regular 300 UNITS/3 ML VIAL ONE (05:49)
--- NOTE | 2018-02-11 08:19 | RAD ---
THREE VIEWS LUMBAR SPINE: HISTORY: Pain. FINDINGS: Five lumbar-type vertebral bodies. Straightening of normal lumbar lordosis is presumed to be positio nal. Vertebral body height is maintained. No fracture. Disk space heights are preserved. Mild deg enerative change of the posterior elements at L3-L4, L4-L5, and L5-S1. IMPRESSION: 1. Degenerative changes of the posterior elements. 2. No fracture. 3. Nonemergent MRI if clinically warranted. POS: [facility]
--- NOTE | 2018-02-11 09:25 | ULT ---
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 Real-time duplex ultr asound scan of the arterial and venous flow of the scrotal contents with color Doppler flow and spectral waveform analysis. COMPARISON: No relevant prior studies available. FINDINGS: Scrotal ultrasound was performed. Duplex ultrasound scan with color Doppler flow and spectral wavefor m analysis was also performed for evaluation of testicular blood flow and to rule out torsion. Right testicle: Surgically absent. Left testicle: No acute findings. No mass. Normal blood flow. No evidence of torsion. Epididymides: Possible mildly enlarged heterogeneous left epididymis without increased vascularity. S mall 5 mm left epididymal cyst. Scrotum: Small left hydrocele. IMPRESSION: No testicular mass or torsion. Possible mildly heterogeneous enlarged left epididymis; recommend clin ical correlation to exclude epididymitis. Small left hydrocele. Thank you for allowing us to participate in the care of your patient. Dictated and Authenticated by: Pito Aguillon MD 02/11/2018 4:29 AM Central Time ([place] & [place]) FINAL REPORT TESTICULAR DOPPLER ULTRASOUND: [employer] 10/27/2017. HISTORY: Groin pain. Previous right orchiectomy. TECHNIQUE: Michel scale, color flow, Doppler imaging with spectral waveform analysis is performed of the left test icle. FINDINGS: This report is in agreement with the preliminary report by [facility]. Appropriate echotexture of the left testicle. There is vascular flow. Incidental 5 mm left epididymal cyst is noted. There is a small left-sided hydrocele. POS: [facility]
== END 2018-02-11 07:00 | disposition home or self-care (01) ==
LOC: ERS 00:57
DX: E11.65 Type 2 diabetes mellitus with hyperglycemia (principal); E66.9 Obesity, unspecified; E78.5 Hyperlipidemia, unspecified; E11.9 Type 2 diabetes mellitus without complications; F41.9 Anxiety disorder, unspecified; F31.9 Bipolar disorder, unspecified; F17.220 Nicotine dependence, chewing tobacco, uncomplicated; Z79.82 Long term (current) use of aspirin; Z79.899 Other long term (current) drug therapy
CPT/HCPCS: 36415; 36416; 72100; 76870; 80053; 81003; 81015; 82010; 82550; 83690; 83735; 83930; 83935; 84100; 85025; 87086; 93976; 96372; J1815; J2270; J3010

== ENCOUNTER 2018-02-22 12:31 | Outpatient (CLI) | payer MEDICARE ==
--- NOTE | 2018-02-22 15:21 | MRI ---
LUMBAR SPINE MRI WITHOUT IV CONTRAST: History: 58-year-old male with history of lumbar radiculopathy, M54.16; low back pain with radiation down righ t side for six weeks. Technique: Multiplanar, multisequence MRI images of the lumbar spine is performed. FINDINGS: There are some multiple bony hemangiomas within the lumbar spine vertebra. Conus medullaris region is unremarkable terminating at upper L1. T12-L1 and L1-2 disc levels are unremarkable without evidence for herniation or canal or foraminal stenosis. L2-3: There is some mild disc bulging and ligament and facet hypertrophic changes with very slight th inning of the dorsal lateral recesses but without suzette central canal stenosis or foraminal stenosis. L3-4: Mild diffuse disc bulging with slight thinning of the lateral recesses and very mild foraminal stenosis. L4-5: There is significant disc desiccation change with diffuse disc osteophytosis with mild central canal and moderate lateral recess stenosis and more severe bilateral foraminal stenosis, particularly on the left side. There is very mild associated retrolisthesis of L4 on L5. L5-S1: Bilateral pars defects with very mild grade I anterolisthesis. There is no significant central canal or lateral recess stenosis. There is some mild bilateral foraminal stenosis. IMPRESSION: Variable severity multilevel mostly lateral recess and foraminal stenosis. POS: [facility]
== END 2018-02-22 12:32 | disposition home or self-care (01) ==
LOC: TBSIIMAG 12:31
PROVIDERS: ATTEND Neurological Surgery
DX: M54.16 Radiculopathy, lumbar region (principal); M99.83 Other biomechanical lesions of lumbar region
CPT/HCPCS: 72148

== ENCOUNTER 2018-03-23 13:06 | Outpatient (CLI) | payer MEDICARE ==
--- NOTE | 2018-03-23 14:45 | RAD ---
FOU VIEWS LUMBOSACRAL SPINE: COMPARISON: 02/11/2018. HISTORY: Acquired spondylolisthesis. Recently diagnosed with a stress fracture. FINDINGS: AP, lateral, flexion, and extension views of the lumbosacral spine were performed. There is grade I retrolisthesis of L4 and L5. Disk alignment is unchanged with flexion and extension. Posterior face t arthrosis is seen in the lower lumbosacral spine. IMPRESSION: Degenerative changes of the lumbar spine with unchanged alignment with bending. POS: [facility]
== END 2018-03-23 13:07 | disposition home or self-care (01) ==
LOC: BICRAD 13:06
PROVIDERS: ATTEND Anesthesiology Pain Medicine
DX: M43.16 Spondylolisthesis, lumbar region (principal); M47.816 Spondylosis without myelopathy or radiculopathy, lumbar region
CPT/HCPCS: 72110

== ENCOUNTER 2018-04-04 09:41 | Outpatient (CLI) | payer MEDICARE ==
--- NOTE | 2018-04-04 10:42 | RAD ---
TWO VIEW CHEST SERIES: Comparison: 09-15-17 Indication: Dyspnea. FINDINGS: Lungs are clear. No effusion or pneumothorax. Cardiac silhouette is stable. IMPRESSION: Stable exam. No lobar consolidation. POS: [facility]
== END 2018-04-04 09:42 | disposition home or self-care (01) ==
LOC: RAD 09:41
PROVIDERS: ATTEND Internal Medicine
DX: R06.00 Dyspnea, unspecified (principal)
CPT/HCPCS: 71046

== ENCOUNTER 2018-04-05 06:09 | Inpatient (IN) | payer MEDICARE ==
[2018-04-04 17:15] VITALS: BMI 30.9
[2018-04-05 07:18] LABS: #Basophils 0.1 thou/uL (0.0-0.2); #Eosinphils 0.1 thou/uL (0.0-0.7); #Lymphocytes 2.5 thou/uL (1.20-3.40); #Monocytes 0.5 thou/uL (0.11-0.59); #Neutrophils 3.3 thou/uL (1.40-6.50); %Basophils 0.9 % (0.0-1.0); %Eosinophils 1.5 % (0.0-10.0); %Lymphocytes 38.5 % (21.0-51.0); %Monocytes 7.3 % (0.0-10.0); %Neutrophils 51.8 % (42.0-75.0); Hemoglobin 15.4 g/dL (14.0-18.0); Mean Corpuscular HGB CONC 32.1 g/dL (32.0-36.0); Mean Corpuscular Hemoglobin 28.8 pg (27.0-31.0); Mean Corpuscular Volume 89.5 fL (78.0-98.0); Mean Platelet Volume 8.6 fL (7.4-10.4); Platelet Count 168 thou/uL (130-400); RBC Distribution Width 12.5 % (11.5-14.5); Red Blood Cell (RBC) Count 5.35 mill/uL (4.70-6.10); White Blood Cell (WBC) Count 6.4 thou/uL (4.8-10.8)
[2018-04-05] MEDS ORDERED: Fentanyl 100 MCG/2 ML VIAL ONE ×5 (07:32→12:18)
[2018-04-05 07:36] LABS: Anion Gap 19 mmol/L (10-20); BUN (Urea Nitrogen) 18 mg/dL (8.4-25.7); Calc. Creatinine Clearance 138 mL/min (70-130); Calcium 9.8 mg/dL (7.8-10.44); Carbon Dioxide 17 mmol/L (22-29); Chloride 105 mmol/L (98-107); Estimated GFR-MDRD Greater than 90; Glucose 320 mg/dL (70-105); Potassium 4.8 mmol/L (3.5-5.1); Sodium 136 mmol/L (136-145)
[2018-04-05] MEDS ORDERED: CEFAZOLIN 2 GM/50 ML BAG ONE (08:09)
[2018-04-05] MEDS ORDERED: Insulin Regular 300 UNITS/3 ML VIAL ONE (08:31)
[2018-04-05] MEDS ORDERED: Sodium Chloride 0.9% 10 ML ONE ×2 (08:31→20:58)
[2018-04-05] MEDS ORDERED: Scopolamine 1.5 mg/72 hour Patch ONE (08:43)
[2018-04-05] MEDS ORDERED: HYDROmorphone 2 MG/ML VIAL ONE (11:07)
[2018-04-05] MEDS ORDERED: Ondansetron PF 4 MG/2 ML Vial ONE ×2 (11:07→18:35)
[2018-04-05] MEDS ORDERED: Ondansetron HCl/PF 4 MG/2 ML Vial IVP PRN ×2 (11:55→11:59)
[2018-04-05] MEDS ORDERED: Promethazine HCl 25 MG/ML VIAL SLOW IVP PRN (11:59)
[2018-04-05] MEDS ORDERED: Promethazine HCl 25 MG/ML VIAL IM PRN ×2 (11:59→13:33)
--- NOTE | 2018-04-05 12:48 | OP ---
DATE OF PROCEDURE: 04/05/2018 QUILL STRIPPER: Max[employer]. PROCEDURES PERFORMED: L4-L5 and L5-S1 bilateral decompressive laminectomy, facetectomy, foraminotomy, interbody arthrodesis, intervertebral biomechanical device, local morselized autograft, demineralized bone matrix, and pedicle screw instrumentation, L4 through S1. DESCRIPTION OF PROCEDURE: The patient was brought to the operating room and intubated. He was rolled in the prone position on gel flat chest rolls. An incision was made exposing L4 through S1, and the level was confirmed by x-ray. We performed right-sided laminectomy, facetectomy, and foraminotomies at L4-L5 and L5-S1 completely decompressing the neural elements. The posterior elements at L5 were floating as anticipated. We performed a similar left-sided facetectomy and foraminotomy at left L4-L5. We next completely removed the intervertebral disk from the right side at L4-L5 and L5-S1 and placed an intervertebral device in the interbody space using lateral fluoroscopic guidance. At the L5-S1 level, the disk itself was heavily calcified and we could not place the interbody device, although we did access it for the purpose of arthrodesis. Next, a left-sided laminectomy and foraminotomy were performed at L4-L5. Pedicle screws were placed at L4, L5, and S1 bilaterally using lateral fluoroscopic guidance. A lalita was secured between the screws connected by nuts, which were finally tightened. The wound was then extensively irrigated and maximum hemostasis was secured. Combination of demineralized bone matrix and local morselized autograft was laid over the lamina and posterolateral surfaces for the purpose of arthrodesis. Vancomycin powder was applied and the wound was then closed in anatomic layers. Job ID: [id number]
[2018-04-05] MEDS ORDERED: Promethazine 25 MG TAB PO PRN (13:33)
[2018-04-05] MEDS ORDERED: Mag-Al 1200 mg/1200 mg/30 ML UDCUP PO PRN (13:33)
[2018-04-05] MEDS ORDERED: Bisacodyl 10 MG SUPP PR PRN (13:33)
[2018-04-05] MEDS ORDERED: traMADol HCl 50 MG TAB PO PRN (13:33)
[2018-04-05] MEDS ORDERED: diphenhydrAMINE 50 MG/ML VIAL IVP PRN (13:33)
[2018-04-05] MEDS ORDERED: Milk Of Magnesia 30 ML UDCUP PO PRN (13:33)
[2018-04-05] MEDS ORDERED: Promethazine HCl 12.5 MG SUPP PR PRN (13:33)
[2018-04-05] MEDS ORDERED: diphenhydrAMINE 25 MG CAP PO PRN (13:33)
[2018-04-05] MEDS ORDERED: HYDROcodone/Acetaminophen 10/325 mg Tablet PO PRN (13:33)
[2018-04-05] MEDS ORDERED: Morphine 4 MG/ML VIAL SLOW IVP PRN (13:33)
[2018-04-05] MEDS ORDERED: CEFAZOLIN/Water 2 GM/20 ML SYRINGE SLOW IVP SCH (14:00)
[2018-04-05] MEDS: HYDROcodone/Acetaminophen 10/325 mg Tablet PO PRN ×3 (14:11→22:02)
[2018-04-05] MEDS: Sodium Chloride 0.9% 1,000 ML IV SCH (14:14)
[2018-04-05] MEDS ORDERED: Dextrose 5% in Water 1,000 ML IV PRN (14:54)
[2018-04-05] MEDS ORDERED: Insulin Regular 300 UNITS/3 ML VIAL SC PRN (14:54)
[2018-04-05] MEDS ORDERED: Dextrose 50% Abboject 50 ML SYRINGE SLOW IVP PRN (14:54)
[2018-04-05] MEDS: CEFAZOLIN 2 GM/50 ML BAG IVPB SCH (15:55)
[2018-04-05] MEDS ORDERED: Ketorolac Tromethamine 30 MG/ML VIAL ONE (18:35)
[2018-04-05] MEDS ORDERED: PROPOFOL 200 MG/20 ML VIAL ONE (18:35)
[2018-04-05] MEDS ORDERED: PHENYLEPHRINE-NS 100 MCG/ML 10 ML SYRINGE ONE (18:35)
[2018-04-05] MEDS ORDERED: Lidocaine 1% PF 5 ML VIAL ONE (18:35)
[2018-04-05] MEDS ORDERED: Glycopyrrolate 0.2 MG/ML 5 ML SYRINGE ONE (18:35)
[2018-04-05] MEDS: tiZANidine HCl 4 MG TAB PO PRN (21:02)
[2018-04-05] MEDS ORDERED: Insulin Glargine 10 UNITS in Pre-Filled Syringe 1 EACH SC SCH (23:00)
--- NOTE | 2018-04-05 23:57 | PRG ---
DATE OF SERVICE: 04/05/2018 SUBJECTIVE: The patient denies any new complaints at this time. He is somnolent from the anesthesia. He denies any chest pain, shortness of breath, palpitations, fever, or chills. No leg swelling, nausea, or vomiting reported. REVIEW OF SYSTEMS: As discussed above. The patient denies any new focal deficit. PHYSICAL EXAMINATION: VITAL SIGNS: Temperature 97.3, pulse rate of 83, respiration of 18, blood pressure of 102/66 with O2 saturation 95% on room air. GENERAL: A 58-year-old male in no apparent distress. HEENT: Head atraumatic and normocephalic. Sclerae anicteric. LUNGS: Clear to auscultation bilaterally. No wheezing, rales, or rhonchi. HEART: S1, S2 present. Regular rate and rhythm. No heaves or palpitation. ABDOMEN: Soft. Bowel sounds present. EXTREMITIES: No edema or calf tenderness. NEUROLOGIC: Grossly nonfocal. LABORATORY FINDINGS: CBC showed WBC 6.4 with hemoglobin 15.4, hematocrit 47.9, and platelet 168. INR 1.0. Blood glucose of 320 with BUN of 18, creatinine 0.86, sodium 136, potassium 4.8, chloride 105, and bicarb 17. Chest x-ray by my review was negative for infiltrate. EKG by my review showed sinus rhythm. IMPRESSION: 1. Diabetes mellitus type 2. We will start him back on glipizide along with Januvia. We will add sliding scale. 2. Hypertension. We will continue lisinopril with holding parameters. 3. Hyperlipidemia. We will continue statins. 4. Seizure disorder. We will continue Dilantin 400 mg at bedtime with seizure precautions. 5. Gastroesophageal reflux disease. We will continue ranitidine. 6. Obesity with a BMI of 31.1. 7. History of deep venous thrombosis and pulmonary embolism. Anticoagulation has been discontinued 2 weeks ago. Plan of care was discussed with the patient and the family in detail. They stated understanding. CODE STATUS: Full code. The patient makes his own decision with the help of his family. Job ID: [id number]
[2018-04-06] MEDS: CEFAZOLIN 2 GM/50 ML BAG IVPB SCH (00:20)
[2018-04-06] MEDS: Sodium Chloride 0.9% 1,000 ML IV SCH ×2 (01:38→14:23)
[2018-04-06] MEDS: HYDROcodone/Acetaminophen 10/325 mg Tablet PO PRN ×5 (01:42→22:02)
[2018-04-06] MEDS: traMADol HCl 50 MG TAB PO PRN (02:28)
[2018-04-06] MEDS: tiZANidine HCl 4 MG TAB PO PRN (03:31)
[2018-04-06] MEDS: Ondansetron PF 4 MG/2 ML Vial SLOW IVP PRN ×2 (04:53→23:00)
[2018-04-06] MEDS: Insulin Regular 300 UNITS/3 ML VIAL SC PRN ×4 (04:58→21:47)
[2018-04-06] MEDS ORDERED: Ketorolac Tromethamine 30 MG/ML VIAL IVP SCH (05:00)
[2018-04-06 06:40] LABS: #Eosinphils 0.1 thou/uL (0.0-0.7); #Lymphocytes 1.1 thou/uL (1.20-3.40); #Neutrophils 6.9 thou/uL (1.40-6.50); %Basophils 0.2 % (0.0-1.0); %Lymphocytes 12.5 % (21.0-51.0); %Monocytes 10.7 % (0.0-10.0); %Neutrophils 75.6 % (42.0-75.0); Hemoglobin 14.3 g/dL (14.0-18.0); Mean Corpuscular HGB CONC 34.1 g/dL (32.0-36.0); Mean Corpuscular Volume 88.2 fL (78.0-98.0); Mean Platelet Volume 8.4 fL (7.4-10.4); Platelet Count 187 thou/uL (130-400); RBC Distribution Width 12.3 % (11.5-14.5); Red Blood Cell (RBC) Count 4.77 mill/uL (4.70-6.10); White Blood Cell (WBC) Count 9.1 thou/uL (4.8-10.8)
[2018-04-06] MEDS ORDERED: Ketorolac Tromethamine 30 MG/ML VIAL IVP PRN (06:46)
[2018-04-06] MEDS: Meperidine HCl/PF 25 MG/ML VIAL SLOW IVP PRN ×3 (06:55→20:25)
[2018-04-06 08:56] LABS: Anion Gap 13 mmol/L (10-20); BUN (Urea Nitrogen) 16 mg/dL (8.4-25.7); Calc. Creatinine Clearance 127 mL/min (70-130); Calcium 9.2 mg/dL (7.8-10.44); Carbon Dioxide 26 mmol/L (22-29); Chloride 101 mmol/L (98-107); Estimated GFR-MDRD 83; Glucose 363 mg/dL (70-105); Magnesium 1.7 mg/dL (1.6-2.6); Sodium 136 mmol/L (136-145)
[2018-04-06] MEDS ORDERED: Insulin Glargine 10 UNITS in Pre-Filled Syringe 1 EACH SC SCH ×2 (09:00→21:00)
[2018-04-06] MEDS ORDERED: clonazePAM 1 MG TAB PO SCH (09:00)
[2018-04-06] MEDS: Famotidine 20 MG TAB PO SCH (09:35)
[2018-04-06] MEDS: Alogliptin 25 MG TAB PO SCH (09:35)
[2018-04-06] MEDS: Lisinopril 10 MG TAB PO SCH (09:35)
[2018-04-06] MEDS: glipiZIDE 10 MG TAB PO SCH (09:38)
[2018-04-06] MEDS: clonazePAM 0.5 MG TAB PO SCH ×3 (09:39→20:24)
--- NOTE | 2018-04-06 16:03 | PRG ---
DATE OF SERVICE: 04/06/2018 SUBJECTIVE: The patient denies any new complaints at this time, except for back pain. He denies any fever, chills, chest pain, shortness of breath, or palpitations. No seizures reported. No new focal deficit. CURRENT MEDICATIONS: Reviewed. The patient is on, 1. Lipitor. 2. Low-dose Klonopin. 3. Glipizide. 4. Sliding scale. 5. Lisinopril. 6. Other p.r.n. medications. OBJECTIVE: VITAL SIGNS: Temperature 98.2, pulse rate of 103, respirations of 18, blood pressure 137/67 with O2 saturation 93% on room air. GENERAL: A 58-year-old male, in distress due to back pain. HEENT: Head, atraumatic and normocephalic. Sclerae anicteric. LUNGS: Clear to auscultation bilaterally with diminished air entry at bases. HEART: S1 and S2 present. Regular rate and rhythm. Tachycardic. No heaves or pulsation. ABDOMEN: Soft. Bowel sounds are present. EXTREMITIES: No edema or calf tenderness. LABORATORY DATA: WBC 9.1 with hemoglobin 14.3. BUN 16, creatinine 0.93, blood glucose was 363 and 302. IMPRESSION/PLAN OF CARE: 1. Diabetes mellitus type 2. We will continue glipizide along with Januvia and sliding scale. We will increase Lantus to 10 units twice a day. We will continue consistent carbohydrate diet. 2. Hypertension. We will continue lisinopril. 3. Seizure disorder. Continue Dilantin with seizure precautions. 4. Gastroesophageal reflux disease. We will continue H2 blockers. 5. Obesity with a BMI 31. 6. History of deep venous thrombosis and pulmonary embolism in the past. Anticoagulation was discontinued 2 weeks ago. 7. Bipolar disorder. The patient takes Klonopin 2 mg q.i.d. We will continue Klonopin at 1 mg three times daily for now. Job ID: [id number]
[2018-04-06] MEDS ORDERED: risperiDONE 1 MG TAB PO SCH (21:00)
[2018-04-06] MEDS ORDERED: Atorvastatin Calcium 10 MG TAB PO SCH (21:00)
[2018-04-06] MEDS ORDERED: traZODone HCl 50 MG TAB PO SCH (21:00)
[2018-04-07] MEDS: Meperidine HCl/PF 25 MG/ML VIAL SLOW IVP PRN ×2 (01:09→05:31)
[2018-04-07] MEDS: HYDROcodone/Acetaminophen 10/325 mg Tablet PO PRN ×4 (02:26→14:49)
[2018-04-07] MEDS: Sodium Chloride 0.9% 1,000 ML IV SCH (05:40)
[2018-04-07] MEDS: Insulin Regular 300 UNITS/3 ML VIAL SC PRN ×2 (06:50→12:51)
[2018-04-07] MEDS: glipiZIDE 10 MG TAB PO SCH (08:44)
[2018-04-07] MEDS: clonazePAM 0.5 MG TAB PO SCH (08:44)
[2018-04-07] MEDS: Alogliptin 25 MG TAB PO SCH (08:44)
[2018-04-07] MEDS: Famotidine 20 MG TAB PO SCH (08:44)
[2018-04-07] MEDS: Lisinopril 10 MG TAB PO SCH (08:44)
[2018-04-07] MEDS ORDERED: Insulin Glargine 20 UNITS in Pre-Filled Syringe 1 EACH SC SCH (09:00)
--- NOTE | 2018-04-07 10:04 | PRG ---
DATE OF SERVICE: 04/07/2018 The patient is a 58-year-old male, status post L4-L5 and L5-S1 discectomy and fusion following a surgery, who was transitioned to the [facility] floor. He has had some difficulty with pain control, but p.r.n. Demerol was added yesterday and he reports that he is feeling much better today. He has also been very slow to mobilize. PT to get him up standing for a short period at the side of the bed yesterday. He has right-sided lower extremity weakness particularly with dorsiflexion and plantar flexion, which is resembling him a fall risk and additionally slower to mobilize. Case management had been consulted and the plan is for inpatient rehabilitation in the future. The patient is lying comfortably in the bed, no acute distress. His incision is dry and intact. There is no evidence of drainage or other worth findings. He is still weak in the right lower extremity particularly with plantar flexion and dorsiflexion which is unchanged from prior to surgery. Sensation is intact to light touch. We will continue to work on pain control during his inpatient stay. The patient and I discussed today, transitioned to oral medications. We will also continue to work on mobilizing the patient with assistance of physical therapy. I will encourage the patient to try to move out a bit more frequently with their assistance. Anticipate need for inpatient rehabilitation and will discuss with case management on where we are in this process. Job ID: [id number]
[2018-04-07 11:48] VITALS: BP 123/80; TEMP 99
--- NOTE | 2018-04-07 12:19 | PDOC.PN ---
- Subjective Encounter Start Date: 04/07/18 Encounter Start Time: 10:00 Patient seen and examined for med mngt. Pain controlled. No new complaints. No overnight events - Objective MAR Reviewed: Yes Vital Signs & Weight: Vital Signs (12 hours) Temp Pulse Resp BP Pulse Ox 04/07/18 11:47 99 F 109 H 18 123/80 96 04/07/18 07:25 98.6 F 105 H 18 136/79 92 L 04/07/18 04:38 99.2 F 105 H 20 136/74 94 L Weight Weight 235 lb I&O: 04/06/18 04/07/18 04/08/18 06:59 06:59 06:59 Intake Total 1200 640 Output Total 350 550 Balance 850 90 Result Diagrams: 04/06/18 06:20 04/06/18 08:23 Additional Labs: Accuchecks 04/07/18 04/07/18 04/06/18 10:58 06:11 20:04 POC Glucose 309 H 261 H 264 H 04/06/18 15:38 POC Glucose 354 H Phys Exam - Physical Examination Constitutional: NAD Respiratory: no wheezing, no rhonchi Cardiovascular: RRR, no rub Gastrointestinal: soft, non-tender, positive bowel sounds Musculoskeletal: no edema Neurological: moves all 4 limbs Dx/Plan - Plan DVT proph w/SCDs 1. Diabetes mellitus type 2. 2. Hypertension. 3. Seizure disorder. 4. GERD. 5. Obesity with a BMI 31. 6. History of DVT and PE - Anticoagulation on hold. 7. Bipolar disorder. PLAN: Continue glipizide and Januvia Increase Lantus to 20 QM and 10 units HS Patient is refusing insulin at [place] - He will d/w PCP Continue lisinopril. Continue Dilantin with seizure precautions. Continue H2 blockers. Review of Systems - Review of Systems Respiratory: negative: Cough, Dry, Shortness of Breath, Hemoptysis, SOB with Excertion, Pleuritic Pain, Sputum, Wheezing Cardiovascular: negative: chest pain, palpitations, orthopnea, paroxysmal nocturnal dyspnea, edema, light headedness, other - Medications/Allergies Allergies/Adverse Reactions: Allergies Allergy/AdvReac Type Severity Reaction Status Date / Time morphine Allergy Severe Anaphylaxis Verified 04/05/18 14:07 Medications: Current Medications Hydrocodone Bitart/Acetaminophen ([place] 10/325) 1 tab PO Q4H PRN PRN Reason: PAIN (1-3) Hydrocodone Bitart/Acetaminophen ([place] 10/325) 2 tab PO Q4H PRN PRN Reason: PAIN (4-6) Last Admin: 04/07/18 10:23 Dose: 2 tab Al Hydroxide/Mg Hydroxide (Maalox) 30 ml PO Q4H PRN PRN Reason: Heartburn or Indigestion Albuterol/Ipratropium (Duoneb) 3 ml NEB Q2H PRN PRN Reason: SOB &/or Wheezing Alogliptin Benzoate (Alogliptin) 25 mg PO DAILY [facility] Last Admin: 04/07/18 08:44 Dose: 25 mg Atorvastatin Calcium (Lipitor) 10 mg PO [facility] Last Admin: 04/06/18 20:25 Dose: 10 mg Bisacodyl (Dulcolax) 10 mg CA Q12H PRN PRN Reason: Constipation Clonazepam (Klonopin) 1 mg PO TID [facility] Last Admin: 04/07/18 08:44 Dose: 1 mg Dextrose/Water (Dextrose 50%) 25 gm SLOW IVP PRN PRN PRN Reason: Hypoglycemia Diphenhydramine HCl (Benadryl) 25 mg PO Q6H PRN PRN Reason: Itching Diphenhydramine HCl (Benadryl) 25 mg IVP Q6H PRN PRN Reason: Itching Famotidine (Pepcid) 20 mg PO DAILY [facility] Last Admin: 04/07/18 08:44 Dose: 20 mg Glipizide (Glucotrol) 20 mg PO DAILY[facility] Last Admin: 04/07/18 08:44 Dose: 20 mg Glucagon (Glucagon) 1 mg IM PRN PRN PRN Reason: Hypoglycemia Sodium Chloride (Normal Saline 0.9%) 1,000 mls @ 75 mls/hr IV .[id number] [facility] Last Admin: 04/07/18 05:40 Dose: Not Given Dextrose/Water (D5w) 1,000 mls @ 0 mls/hr IV .Q0M PRN PRN Reason: Hypoglycemia Insulin Glargine 10 units/ (Miscellaneous Medication) 0.1 mls @ 0 mls/hr SC [facility] Last Admin: 04/06/18 21:47 Dose: 0.1 mls Insulin Glargine 20 units/ (Miscellaneous Medication) 0.2 mls @ 0 mls/hr [facility] Last Admin: 04/07/18 09:04 Dose: 0.2 mls Insulin Human Regular (Humulin R) 0 units SC .BEDTIME SLIDING SC PRN PRN Reason: Bedtime Correctional Scale Last Admin: 04/06/18 21:47 Dose: 3 unit Insulin Human Regular (Humulin R) 0 units SC .MODERATE SLIDING SC PRN PRN Reason: Moderate Correctional Scale Last Admin: 04/07/18 06:50 Dose: 6 unit Ketorolac Tromethamine (Toradol) 15 mg IVP Q6H PRN PRN Reason: Pain Stop: 04/08/18 06:47 Last Admin: 04/06/18 09:39 Dose: 15 mg Lisinopril (Zestril) 10 mg PO DAILY [facility] Last Admin: 04/07/18 08:44 Dose: 10 mg Magnesium Hydroxide (Milk Of Magnesium) 30 ml PO Q12H PRN PRN Reason: Constipation Meperidine HCl (Demerol) 25 mg SLOW IVP Q4H PRN PRN Reason: BT Pain Last Admin: 04/07/18 05:31 Dose: 25 mg Ondansetron HCl (Zofran) 4 mg SLOW IVP Q8H PRN PRN Reason: Nausea Last Admin: 04/06/18 23:00 Dose: 4 mg Phenytoin Sodium (Dilantin Er) 400 mg PO [facility] Last Admin: 04/06/18 20:24 Dose: 400 mg Promethazine HCl (Phenergan) 12.5 mg IM Q4H PRN PRN Reason: Nausea/Vomiting Promethazine HCl (Phenergan) 12.5 mg PO Q4H PRN PRN Reason: Nausea/Vomiting Last Admin: 04/07/18 02:29 Dose: 12.5 mg Promethazine HCl (Phenergan Suppository) 12.5 mg CA Q4H PRN PRN Reason: Nausea/Vomiting Risperidone (Risperidone) 8 mg PO [facility] Last Admin: 04/06/18 20:26 Dose: 8 mg Sodium Chloride (Flush - Normal Saline) 10 ml IVF PRN PRN PRN Reason: Saline Flush Last Admin: 04/06/18 20:27 Dose: 10 ml Tizanidine HCl (Zanaflex) 4 mg PO Q6H PRN PRN Reason: MUSCLE SPASM Last Admin: 04/06/18 03:31 Dose: 4 mg Tramadol HCl (Ultram) 50 mg PO Q6H PRN PRN Reason: PAIN (1-3) Tramadol HCl (Ultram) 100 mg PO Q6H PRN PRN Reason: PAIN (4-6) Last Admin: 04/06/18 02:28 Dose: 100 mg Trazodone HCl (Desyrel) 100 mg PO HS [facility] Last Admin: 04/06/18 20:24 Dose: 100 mg
[2018-04-07] MEDS: traMADol HCl 50 MG TAB PO PRN (12:50)
[2018-04-07] MEDS: tiZANidine HCl 4 MG TAB PO PRN (12:50)
--- NOTE | 2018-04-10 11:38 | DIS ---
DATE OF ADMISSION: 04/05/2018 DATE OF DISCHARGE: 04/07/2018 HOSPITAL COURSE: The patient is a 58-year-old male, who underwent L4-L5, L5-S1 decompression and fusion on 04/05/2018. Following the surgery, he was admitted to the Med/Surg floor where his pain was well controlled with p.o. medications. He was tolerating regular diet and voiding appropriately. He did have significant right leg weakness preoperatively and inpatient rehabilitation was recommended following his discharge. There are also existed adverse medical problems including hypertension and diabetes with medical service. On postoperative day #2, the patient is sitting up in bed, in no acute distress. Head, normocephalic, atraumatic. Free active range of motion of all extremities. He has weakness in the right lower extremity with plantar flexion and dorsiflexion 4-/5. Sensation is intact to light touch and normal reflexes. We will plan to discharge to rehab later today. We will plan to follow up in the office in 2 weeks with x-rays at that time. Discussed discharge instructions thoroughly. Job ID: [id number]
== END 2018-04-07 14:50 | DRG 455 ==
LOC: SURG A 06:09 → SJJU 13:24
PROVIDERS: ADMIT Neurological Surgery; ATTEND Neurological Surgery
PROC: 0SG00AJ Fusion of Lumbar Vertebral Joint with Interbody Fusion Device, Posterior Approach, Anterior Column, Open Approach (ICD-10-PCS; principal; 2018-04-05)
PROC: 0SG3071 Fusion of Lumbosacral Joint with Autologous Tissue Substitute, Posterior Approach, Posterior Column, Open Approach (ICD-10-PCS; 2018-04-05)
PROC: 01NB0ZZ Release Lumbar Nerve, Open Approach (ICD-10-PCS; 2018-04-05)
PROC: 0ST20ZZ Resection of Lumbar Vertebral Disc, Open Approach (ICD-10-PCS; 2018-04-05)
PROC: 0ST40ZZ Resection of Lumbosacral Disc, Open Approach (ICD-10-PCS; 2018-04-05)
DX: M51.16 Intervertebral disc disorders with radiculopathy, lumbar region (principal); M47.26 Other spondylosis with radiculopathy, lumbar region; M48.061 Spinal stenosis, lumbar region without neurogenic claudication; M48.07 Spinal stenosis, lumbosacral region; I10 Essential (primary) hypertension; E78.5 Hyperlipidemia, unspecified; F31.9 Bipolar disorder, unspecified; F20.9 Schizophrenia, unspecified; E11.9 Type 2 diabetes mellitus without complications; G40.909 Epilepsy, unspecified, not intractable, without status epilepticus; K21.9 Gastro-esophageal reflux disease without esophagitis; Z68.31 Body mass index [BMI] 31.0-31.9, adult; E66.9 Obesity, unspecified; Z88.5 Allergy status to narcotic agent; Z86.711 Personal history of pulmonary embolism; Z86.718 Personal history of other venous thrombosis and embolism; Z79.01 Long term (current) use of anticoagulants; Z79.84 Long term (current) use of oral hypoglycemic drugs; Z79.82 Long term (current) use of aspirin; Z79.899 Other long term (current) drug therapy; R06.00 Dyspnea, unspecified
CPT/HCPCS: 36415; 36416; 71046; 76001; 80048; 83735; 85025; 85610; 93005; 93010; 96374; C1713; C1768; G8978-GP-CL; G8979-GP-CJ; G8987-GO-CL; G8988-GO-CI; J0131; J1170; J1200; J1815; J1885; J2001; J2175; J2405; J2704; J3010; J3370; J3490

== ENCOUNTER 2018-04-28 08:44 | Outpatient (CLI) | payer MEDICARE ==
--- NOTE | 2018-04-28 09:40 | RAD ---
LUMBAR SPINE SERIES 2 VIEWS: HISTORY: Followup surgery. COMPARISON: A 02/11/2018 study. FINDINGS: Since the prior examination, there has been bilateral pedicle screw placement at L4, L5, and S1. Mar kers of the disk implant are seen at the L4-5 level. There is disk narrowing at L5-S1. IMPRESSION: Postoperative changes of the spine. POS: [facility]
== END 2018-04-28 08:45 | disposition home or self-care (01) ==
LOC: TBSIIMAG 08:44
PROVIDERS: ATTEND Neurological Surgery
DX: M51.36 Other intervertebral disc degeneration, lumbar region (principal); Z98.890 Other specified postprocedural states
CPT/HCPCS: 72100

== ENCOUNTER 2018-06-08 14:57 | Outpatient (CLI) | payer MEDICARE ==
--- NOTE | 2018-06-08 18:30 | RAD ---
LUMBAR SPIEN TWO VIEWS: Comparison: 04-28-18 History: Surgery. Pain. FINDINGS: Bilateral transpedicular screws at L4, L5, and S1. No significant change since the previous examinati on. Stable prosthesis at L4-5. IMPRESSION: Stable post-surgical change. POS: [facility]
== END 2018-06-08 14:58 | disposition home or self-care (01) ==
LOC: TBSIIMAG 14:57
PROVIDERS: ATTEND Neurological Surgery
DX: M51.36 Other intervertebral disc degeneration, lumbar region (principal); Z98.890 Other specified postprocedural states
CPT/HCPCS: 72100

== ENCOUNTER 2018-07-26 07:32 | Inpatient (IN) | payer MEDICARE ==
--- NOTE | 2018-07-26 07:58 | RAD ---
FPortable chest radiograph: 07/26/2018 COMPARISON: 08/23/2017 HISTORY:Chest pain FINDINGS: No pneumothorax, pleural fluid, focal consolidation, or alveolar edema. IMPRESSION: No acute findings
[2018-07-26 08:25] LABS: #Basophils 0.1 thou/uL (0.0-0.2); #Eosinphils 0.2 thou/uL (0.0-0.7); #Lymphocytes 2.5 thou/uL (1.20-3.40); #Monocytes 0.6 thou/uL (0.11-0.59); #Neutrophils 4.9 thou/uL (1.40-6.50); %Basophils 0.8 % (0.0-1.0); %Eosinophils 2.2 % (0.0-10.0); %Lymphocytes 30.5 % (21.0-51.0); %Monocytes 7.3 % (0.0-10.0); %Neutrophils 59.2 % (42.0-75.0); Hemoglobin 14.7 g/dL (14.0-18.0); Mean Corpuscular HGB CONC 33.5 g/dL (32.0-36.0); Mean Corpuscular Hemoglobin 30.7 pg (27.0-31.0); Mean Corpuscular Volume 91.6 fL (78.0-98.0); Mean Platelet Volume 8.3 fL (7.4-10.4); Platelet Count 206 thou/uL (130-400); RBC Distribution Width 12.9 % (11.5-14.5); Red Blood Cell (RBC) Count 4.81 mill/uL (4.70-6.10); White Blood Cell (WBC) Count 8.3 thou/uL (4.8-10.8)
[2018-07-26 08:55] LABS: Prothrombin Time 12.8 SEC (12.0-14.7)
[2018-07-26 08:56] LABS: D-Dimer Test 1.24 *mcg/mL (0.27-0.43)
[2018-07-26 08:56] LABS: ALT (SGPT) 15 U/L (8-55); AST (SGOT) 10 U/L (5-34); Albumin 4.1 g/dL (3.5-5.0); Alkaline Phosphatase 117 U/L (40-150); Anion Gap 15 mmol/L (10-20); BUN (Urea Nitrogen) 13 mg/dL (8.4-25.7); Bilirubin, Total Less than 0.2 mg/dL (0.2-1.2); Calc. Creatinine Clearance 0 mL/min (70-130); Calcium 9.8 mg/dL (7.8-10.44); Carbon Dioxide 26 mmol/L (22-29); Chloride 101 mmol/L (98-107); Estimated GFR-MDRD 90; Globulin 2.6 g/dL (2.4-3.5); Glucose 315 mg/dL (70-105); Potassium 4.2 mmol/L (3.5-5.1); Protein, Total 6.7 g/dL (6.0-8.3); Sodium 138 mmol/L (136-145)
[2018-07-26 08:57] LABS: PTT 21.5 SEC (22.9-36.1)
[2018-07-26] MEDS ORDERED: ISOVUE-370 76%-LOCM 1 ML ONE (09:32)
[2018-07-26 09:33] LABS: Bilirubin Negative (Negative); Blood, Urine Negative (Negative); Clarity CLEAR (Clear); Glucose, Urine (Dipstick) 250 mg/dL (Negative); Leukocyte Negative (Negative); Nitrite Negative (Negative); Protein, Urine (Dipstick) Negative (Neg-Trace); Specific Gravity, Urine 1.023 (1.002-1.036); Urobilinogen 0.2 mg/dL (0.2-1.0); pH, Urine 5.5 (5.0-9.0)
[2018-07-26] MEDS ORDERED: Fentanyl 100 MCG/2 ML VIAL ONE (09:44)
--- NOTE | 2018-07-26 10:11 | CT ---
CTA CHEST WITH CONTRAST: Technique: Multiple axial tomograms were obtained through chest following pulmonary angio protocol [facility] multiplanar reconstruction and 3D post processing. Indications: Weakness, shortness of breath, tachycardia. FINDINGS: Pulmonary arteries show adequate opacification. There is evidence of a tiny linear filling defect in the right descending pulmonary artery with exten corrine into a proximal right lower lobe pulmonary artery. This is very tiny but does have the appearanc e of a tiny linear pulmonary embolus. No other filling defect or emboli identified. The lungs are clear. There is no infiltrate or effusion. Mediastinum is unremarkable. No adenopathy. Images through the upper abdomen unremarkable. The thoracic aorta is unremarkable with no evidence of dissection. IMPRESSION: Evidence of tiny embolus in right main descending pulmonary artery and proximal right lower lobe pulm onary artery. Findings relayed to Dr. Whipple at the time of dictation. Code CR POS: [facility]
[2018-07-26] MEDS ORDERED: Enoxaparin Sodium 100 MG/ML SYRINGE ONE (10:40)
[2018-07-26 11:37] LABS: Troponin I Less than 0.010 ng/mL (< 0.028)
[2018-07-26] MEDS ORDERED: Dextrose 50% Abboject 50 ML SYRINGE SLOW IVP PRN (12:08)
[2018-07-26] MEDS ORDERED: Dextrose 5% in Water 1,000 ML IV PRN (12:08)
--- NOTE | 2018-07-26 14:11 | HP ---
CHIEF COMPLAINT: Weakness and chest pain. HISTORY OF PRESENT ILLNESS: This patient is a 58-year-old male, who presented to the emergency department. The patient has a long history that includes chronic debilitating back problems requiring back surgery. He also has a history of severe recurrent pulmonary emboli and is on Eliquis presently. The patient reports that he has been recovering since his lumbar surgery, which appears to be back in August. He reports that as soon as the surgery was completed, he had sensation and movement in his right leg, which he had not had prior to the surgery; however, he had significant atrophy and weakness and continues to receive physical therapy at home to recover from that. Over the last 2 to 3 days, the patient reports extreme onset of weakness that has been progressive. He has been too weak to get himself up, and today, his noted that he was too weak to pickle cutter his bolus cereal, and he finally told her that he felt like he was dying because he was so profoundly weak and she brought him to the hospital. The patient also reports that he has been having some chest pains that are generalized, nonradiating. He has some associated nausea, but no vomiting. Currently, rates the pain at 4/10, reports it has been as high as 7/10. He has had no history of a prior cardiac evaluation other than the echocardiogram performed when he had his pulmonary embolus. REVIEW OF SYSTEMS: Some nausea in the morning. Otherwise, he had some headache yesterday and he described as a throbbing sensation, and he reports some orthopnea improved with sitting. Overall, he has reported diminished sleep. All other systems were reviewed, all pertinent positives and negatives noted in the history of present illness. PAST MEDICAL HISTORY: Notable for diabetes mellitus, hypertension, chronic degenerative back pain, lumbar disease, hyperlipidemia, bipolar disorder, seizure disorder, and recurrent pulmonary emboli. PAST SURGICAL HISTORY: Lumbar fusion in March of 2018, herniorrhaphy, knee surgery, appendectomy, and shoulder surgery. FAMILY HISTORY: Notable for father, who at 50 of a myocardial infarction. SOCIAL HISTORY: Denies alcohol or drugs. He is . He does use smokeless tobacco. CURRENT MEDICATIONS: 1. Aspirin 81 mg daily. 2. Klonopin 2 mg one p.o. q.i.d. 3. Lisinopril p.o. daily. 4. Glipizide 10 mg two p.o. b.i.d. 5. Dilantin 400 mg daily. 6. Trazodone 100 mg daily. 7. Januvia 100 mg daily. 8. Ranitidine 150 mg one p.o. b.i.d. 9. Atorvastatin 10 mg at bedtime. 10. Risperidone 8 mg daily. 11. Eliquis 5 mg daily. 12. Gabapentin 300 mg t.i.d. 13. 10-300 two p.o. q.6 hours p.r.n. PHYSICAL EXAMINATION: VITAL SIGNS: Blood pressure 127/63, pulse 94, respirations 15, temperature 97.7, O2 saturation 97% on room air. GENERAL APPEARANCE: Age-appropriate male, in no distress. He is awake, alert, oriented, pleasant, and cooperative. HEENT: PERRL. No OP lesions. He has poor dentition and is largely edentulous. NECK: Supple and symmetric. HEART: Regular rate and rhythm without murmurs, gallops, or rubs. LUNGS: Clear to auscultation bilaterally with good chest wall expansion and air exchange. No wheezes or rales. ABDOMEN: Soft, nontender, and nondistended. Positive bowel sounds. No masses and no organomegaly. EXTREMITIES: There is no cyanosis, clubbing, or edema. PSYCH: The patient has normal affect and behavior. LABORATORY DATA: White count 8.3, hemoglobin 14.7, platelets 206. PT 12.8, INR 1.0. D-dimer 1.24. Chemistries normal with the exception of a glucose of 315. Lactic acid of 3.1. Urinalysis is negative other than some glucose present. IMAGING STUDIES: Chest x-ray, no acute findings. CT chest, evidence of tiny embolus in the right main descending pulmonary artery and proximal right lower lobe pulmonary artery, cannot be determined if this is new or residual. IMPRESSION AND PLAN: 1. Generalized weakness of unclear etiology. Potentially multiple factors could be at play. Certainly could be cardiac in nature. Could be related to recurrent pulmonary embolus. Could be poorly-controlled diabetes or some type of underlying infection given the elevated lactic acid, although no evidence of that exist at the moment. We will be checking a sed rate, CRP, and thyroid studies. 2. Chest pain. The patient has multiple risk factors for coronary artery disease including tobacco use, diabetes, hypertension, hyperlipidemia, and a family history of premature coronary disease and NH in his father. The patient will be on telemetry. Continue to rule out for myocardial injury and anticipate performing a chemical stress test. 3. Pulmonary embolus. Unclear at this point if this is a new recurrent pulmonary embolus or if this is residual. Dr. Shields was called by the ER physician and will see the patient on consultation given the fact that the patient is on anticoagulation now, may need to consider alternatives. May need further evaluation. It will likely take us a couple of days to sort through all of the differentiation between the cardiac issues, and then, once that settled the pulmonary emboli issues, we will go ahead and obtain echocardiogram again at this point. 4. Diabetes mellitus with hyperglycemia. We will add Accu-Cheks and sliding scale and continue with his usual home medications. 5. Lactic acidosis, unclear etiology. We will repeat. 6. Hypertension. Continue with his usual home regimen. 7. History of seizure disorder. Continue with his Dilantin. 8. Chronic pain syndrome. We will continue with the gabapentin and p.r.n. opioids. Job ID: [id number]
[2018-07-26 14:20] LABS: Hemoglobin A1c 7.2 % (4.0-6.0)
[2018-07-26 14:26] LABS: Lactic Acid 1.9 mmol/L (0.5-2.2)
[2018-07-26 14:36] LABS: Troponin I Less than 0.010 ng/mL (< 0.028)
[2018-07-26] MEDS ORDERED: Gabapentin 300 MG CAP PO PRN (18:12)
[2018-07-26 20:05] VITALS: BMI 30.2
[2018-07-26] MEDS: Apixaban 5 MG TAB PO SCH (20:13)
[2018-07-26] MEDS: clonazePAM 1 MG TAB PO SCH (20:14)
[2018-07-26] MEDS: Atorvastatin Calcium 10 MG TAB PO SCH (20:14)
[2018-07-26] MEDS: HYDROcodone/Acetaminophen 10/325 mg Tablet PO PRN (20:15)
[2018-07-26] MEDS ORDERED: risperiDONE 1 MG TAB PO SCH (21:00)
[2018-07-26] MEDS ORDERED: risperiDONE 3 MG TAB PO SCH (21:00)
[2018-07-27] MEDS: Ondansetron PF 4 MG/2 ML Vial IVP PRN (00:42)
--- NOTE | 2018-07-27 00:42 | CON ---
DATE OF CONSULTATION: 07/26/2018 HISTORY OF PRESENT ILLNESS: Mr. Gupta is a very pleasant gentleman who has been followed by my associate, Dr. Otoole after an episode of thromboembolic disease. He is cleared for lumbar spine surgery from a pulmonary standpoint last March. He had progressive weakness of his right lower extremity and severe pain. Since his surgery, he has had ongoing pain, but improved sensation and motor function in his right lower extremity. He has had checkups with his neurosurgeon who has told him that his current discomfort is expected. He has fallen multiple times since his surgery, one time striking his head, but he declined to go to the emergency room. This is a month and a half ago. He said he had headaches for about 3 weeks after he hit his head. For the last 3-4 days, he has been complaining of weakness. He told his this morning that he thought he was going to and needed to come to the hospital. He says his p.o. intake is not decreased. He has had some vague chest discomfort. He denies radiation to his arm or jaw. It has been there more or less for the last 24 hours, but sometimes more prominent, sometimes less prominent. He denies chest wall tenderness. CT pulmonary angiogram done in the emergency room showed a very small embolus in his right main pulmonary artery and proximal right lower lobe artery. I was consulted for assistance. PAST MEDICAL HISTORY: Remarkable for, 1. Diabetes. He has no history of heart disease. He did not have a preop cardiac workup prior to his neurosurgery. 2. History of hypertension. 3. History of lipid disorder. 4. History of seizure disorder. 5. History of lumbar spine surgery in March of last year. 6. History of herniorrhaphy. 7. History of knee surgery and appendectomy and shoulder surgery in the past. FAMILY HISTORY: His father at young age (50) with coronary disease and myocardial infarction. SOCIAL HISTORY: He is a nonsmoker and nondrinker. He is actually dipping snuff when I walked in the room and I asked him to see if he could refrain from this while he is having a cardiac workup. MEDICATIONS: Prior to admission, he is on: 1. Klonopin. 2. Aspirin. 3. Lisinopril. 4. Glipizide. 5. Dilantin. 6. Trazodone. 7. Januvia. 8. Zantac. 9. Atorvastatin. 10. Risperdal. 11. Eliquis. 12. Gabapentin. 13. P.r.n. hydrocodone. REVIEW OF SYSTEMS: Ten point review of systems completed, otherwise negative. PHYSICAL EXAMINATION: GENERAL: He is a wonderful pleasant gentleman, his is as well. VITAL SIGNS: His pulse is 80, respiratory rate is 18, oximetry is 96. His blood pressure in the emergency department was in the 120s to 140s. HEENT: His pupils are equal. Sclerae are anicteric. Throat clear. NECK: Supple. No lymphadenopathy. LUNGS: Clear. HEART: Regular rhythm. S1 and S2 are normal. ABDOMEN: Soft and nontender. EXTREMITIES: Without clubbing, cyanosis, or edema. He denies having any erythema to his wound in his back and this has been checked multiple times by Dr. Gilmore. He has had no drainage out of his wound. Impression: Weakness and malaise of unclear etiology. There is no reason to suspect adrenal crisis, but this should be kept in the differential. His electrolytes were normal today. Sodium 138, potassium 4.2, chloride 101, bicarb 26, BUN 13, creatinine 0.8. CBC was normal. His troponins have been normal. IMPRESSION: Weakness and malaise of unclear etiology. Because of diabetes, I would be worried about an atypical presentation for coronary artery disease. I reviewed his CT pulmonary angiogram and I do not feel that the abnormality seen on the CT scan explain his symptoms. In my opinion, he should continue on his Eliquis for now. I will be happy to follow with the other physicians caring for him. I would not based on his history recommend starting him on Lovenox. Since he is going to be in bed, he is at risk for recurrent thromboembolic events, so I would just go ahead and get him back on his Eliquis tonight. We will be happy to follow the other physicians caring for him. TIME SPENT: This is a 70-minute consult, with greater than 50% of the time spent on the unit coordinating care. Job ID: [id number] MTDD
[2018-07-27] MEDS: HYDROcodone/Acetaminophen 10/325 mg Tablet PO PRN ×4 (01:58→21:04)
[2018-07-27] MEDS: Sodium Chloride 0.9% 1,000 ML IV SCH ×3 (02:00→14:55)
[2018-07-27 05:18] LABS: #Basophils 0.1 thou/uL (0.0-0.2); #Eosinphils 0.2 thou/uL (0.0-0.7); #Lymphocytes 2.5 thou/uL (1.20-3.40); #Monocytes 0.6 thou/uL (0.11-0.59); #Neutrophils 3.2 thou/uL (1.40-6.50); %Basophils 1.2 % (0.0-1.0); %Lymphocytes 37.7 % (21.0-51.0); %Monocytes 9.1 % (0.0-10.0); %Neutrophils 49.1 % (42.0-75.0); Hemoglobin 14.3 g/dL (14.0-18.0); Mean Corpuscular HGB CONC 33.2 g/dL (32.0-36.0); Mean Corpuscular Hemoglobin 30.6 pg (27.0-31.0); Mean Corpuscular Volume 92.3 fL (78.0-98.0); Mean Platelet Volume 8.4 fL (7.4-10.4); Platelet Count 192 thou/uL (130-400); RBC Distribution Width 12.9 % (11.5-14.5); Red Blood Cell (RBC) Count 4.67 mill/uL (4.70-6.10); White Blood Cell (WBC) Count 6.6 thou/uL (4.8-10.8)
[2018-07-27 05:21] LABS: PTT 25.6 SEC (22.9-36.1); Prothrombin Time 12.9 SEC (12.0-14.7)
[2018-07-27 05:29] LABS: ALT (SGPT) 14 U/L (8-55); AST (SGOT) 8 U/L (5-34); Albumin 3.7 g/dL (3.5-5.0); Alkaline Phosphatase 103 U/L (40-150); Anion Gap 11 mmol/L (10-20); BUN (Urea Nitrogen) 12 mg/dL (8.4-25.7); Bilirubin, Total Less than 0.2 mg/dL (0.2-1.2); CK (CPK) 43 U/L (30-200); Calc. Creatinine Clearance 165 mL/min (70-130); Calcium 8.9 mg/dL (7.8-10.44); Carbon Dioxide 26 mmol/L (22-29); Chloride 107 mmol/L (98-107); Estimated GFR-MDRD Greater than 90; Globulin 2.2 g/dL (2.4-3.5); Glucose 159 mg/dL (70-105); Potassium 4.2 mmol/L (3.5-5.1); Protein, Total 5.9 g/dL (6.0-8.3); Sodium 140 mmol/L (136-145)
--- NOTE | 2018-07-27 07:08 | CT ---
CT HEAD NONCONTRAST: Date: 07/27/18 COMPARISON: 08/23/17. INDICATION: Stroke, weakness, and left arm numbness. FINDINGS: There is no acute intracranial hemorrhage, mass effect, or midline shift. Ventricular system is yudy l in size. No significant fluid level of the imaged paranasal sinuses. IMPRESSION: No acute intracranial hemorrhage or mass effect. Notification of findings placed at 0511 hours, 07/27/18. CODE CR. POS: [facility]
--- NOTE | 2018-07-27 07:18 | CT ---
CTA HEAD WITH CONTRAST WITH 3D VOLUME RENDERING CTA NECK WITH CONTRAST WITH 3D VOLUME RENDERING: Date: 07/27/18 CLINICAL HISTORY: Weakness, left arm numbness. FINDINGS: The aortic arch and great vessel origins are patent. Bilateral common carotid and cervical internal c arotid arteries are patent. Vertebrobasilar system is patent. Bilateral TAWANNA, MCA, and WELT SLASHER are patent. No significant abnormality at the level of the ACOM. Bilateral PCOM are not well discerned, either d ue to small size or absence. No discrete intracranial aneurysm is present. Incidental note of a small, ground-glass nodule underlying the pleura of the lateral aspect of the le ft upper lobe. Recommend follow-up with dedicated CT thorax. Mild soft tissue prominence of the oroph arynx is likely due to opposed mucosa. IMPRESSION: No high grade stenosis or occlusion of the major arterial system of the head and neck. Notification of findings placed at 0530 hours on 07/27/18. CODE CR CODE LN POS: [facility]
[2018-07-27] MEDS: Apixaban 5 MG TAB PO SCH ×2 (08:50→20:39)
[2018-07-27] MEDS: clonazePAM 1 MG TAB PO SCH ×4 (08:51→20:39)
--- NOTE | 2018-07-27 11:22 | PDOC.PN ---
- Subjective Encounter Start Date: 07/27/18 Encounter Start Time: 09:00 Subjective: was moved to stroke unit around 4 am due to left UE weakness -: is moving all extremities now, has left shoulder pain -: ate his breakfast, no chest pain or palp or sob - Objective Resuscitation Status - Order Detail: 07/26/18 12:02 Resuscitation Status Routine Resuscitation Status: FULL: Full Resuscitation MAR Reviewed: Yes Vital Signs & Weight: Vital Signs (12 hours) Temp Pulse Pulse Pulse Resp Resp Resp 07/27/18 07:52 97.8 F 89 16 07/27/18 05:13 90 07/27/18 04:39 92 94 20 19 07/27/18 04:35 97.8 F 94 18 07/27/18 03:18 97.7 F 93 18 BP BP BP Pulse Ox Pulse Ox Pulse Ox 07/27/18 07:52 150/98 H 95 07/27/18 05:13 153/98 H 98 07/27/18 04:39 157/86 H 137/95 H 96 99 07/27/18 04:35 157/86 H 94 L 07/27/18 03:18 134/75 92 L Weight Weight 229 lb I&O: 07/26/18 07/27/18 07/28/18 06:59 06:59 06:59 Intake Total 2060 Output Total 1170 Balance 890 Result Diagrams: 07/27/18 05:06 07/27/18 05:06 Additional Labs: Accuchecks 07/27/18 04:42 POC Glucose 153 H Phys Exam - Physical Examination HEENT: PERRLA, moist MMs Neck: no JVD, supple Respiratory: no wheezing, no rales Cardiovascular: RRR, no significant murmur Gastrointestinal: soft, non-tender, positive bowel sounds Musculoskeletal: no edema, pulses present Neurological: non-focal, moves all 4 limbs Psychiatric: normal affect, A&O x 3 Dx/Plan (1) Generalized weakness Code(s): R53.1 - WEAKNESS Status: Acute (2) H/O deep venous thrombosis Code(s): Z86.718 - PERSONAL HISTORY OF OTHER VENOUS THROMBOSIS AND EMBOLISM Status: Chronic (3) Bipolar disorder Code(s): F31.9 - BIPOLAR DISORDER, UNSPECIFIED Status: Chronic Qualifiers: Active/Remission status: remission status unspecified Qualified Code(s): F31.9 - Bipolar disorder, unspecified (4) CAD (coronary artery disease) Code(s): I25.10 - ATHSCL HEART DISEASE OF [place] CORONARY ARTERY W/O ANG PCTRS Status: Chronic Qualifiers: Coronary Disease-Associated Artery/Lesion type: [place] artery [place] vs. transplanted heart: [place] heart Comment: cath in 08/2016 showed mild cad (5) Anxiety disorder Code(s): F41.9 - ANXIETY DISORDER, UNSPECIFIED Status: Chronic Qualifiers: Anxiety disorder type: generalized anxiety disorder Qualified Code(s): F41.1 - Generalized anxiety disorder (6) Seizure Code(s): R56.9 - UNSPECIFIED CONVULSIONS Status: Chronic (7) Diabetes mellitus, type II Status: Chronic Qualifiers: Diabetes mellitus rat exterminator insulin use: without penitentiary use Diabetes mellitus complication status: with neurologic complications Diabetes mellitus complication detail: with unspecified neuropathy Qualified Code(s): E11.40 - Type 2 diabetes mellitus with diabetic neuropathy, unspecified (8) Hypertension Code(s): I10 - ESSENTIAL (PRIMARY) HYPERTENSION Status: Chronic Qualifiers: Hypertension type: essential hypertension - Plan reduce risperdal dose to 4mg HS -: clinically no sign of cva, had CTA brain and CT brain both -ve -: to ambulate in hallway -: Needs to see outpt new psychiatrist in 4 weeks to manage his bipolar meds -: is on very high dose risperdal, trazadone, klonopin 2mg qid, norco, gabapen * . -tin in addition to phenytoin. Trial of reduced dose of risperdal tonight to see if he feels better with generalized aches/weakness Was seeing (last saw him 3 months back) but apparently he moved. Louis shankar for h/o dvt/pe, lipitor. May dc iv fluids. Has fairly good control of dm with HbA1C of 7.2. telemetry has not revealed any arrhythmia, watch for QT prolongation. Review of Systems - Medications/Allergies Allergies/Adverse Reactions: Allergies Allergy/AdvReac Type Severity Reaction Status Date / Time morphine Allergy Severe Anaphylaxis Verified 04/05/18 14:07 Medications: Current Medications Hydrocodone Bitart/Acetaminophen ([place] 10/325) 2 tab PO Q6HR PRN PRN Reason: Pain Last Admin: 07/27/18 08:51 Dose: 2 tab Apixaban (Eliquis) 5 mg PO BID [facility] Last Admin: 07/27/18 08:50 Dose: 5 mg Atorvastatin Calcium (Lipitor) 10 mg PO HS [facility] Last Admin: 07/26/18 20:14 Dose: 10 mg Clonazepam (Klonopin) 2 mg PO QID [facility] Last Admin: 07/27/18 08:51 Dose: 2 mg Dextrose/Water (Dextrose 50%) 25 gm SLOW IVP PRN PRN PRN Reason: Hypoglycemia Gabapentin (Neurontin) 300 mg PO TID PRN PRN Reason: nerve pain Glucagon (Glucagon) 1 mg IM PRN PRN PRN Reason: Hypoglycemia Sodium Chloride (Normal Saline 0.9%) 1,000 mls @ 100 mls/hr IV .Q10H [facility] Last Admin: 07/27/18 02:00 Dose: 1,000 mls Dextrose/Water (D5w) 1,000 mls @ 0 mls/hr IV .Q0M PRN PRN Reason: Hypoglycemia Insulin Human Lispro (Humalog) 0 units SC .MILD SLIDING SCALE PRN PRN Reason: Mild Correctional Scale Ondansetron HCl (Zofran) 4 mg IVP Q6H PRN PRN Reason: Nausea/Vomiting Last Admin: 07/27/18 00:42 Dose: 4 mg Phenytoin Sodium (Dilantin Er) 500 mg PO QPM [facility] Last Admin: 07/26/18 20:14 Dose: 500 mg Risperidone (Risperidone) 4 mg PO HS [facility] Sodium Chloride (Flush - Normal Saline) 10 ml IVF Q12HR [facility] Last Admin: 07/27/18 07:27 Dose: Not Given Sodium Chloride (Flush - Normal Saline) 10 ml IVF PRN PRN PRN Reason: Saline Flush Trazodone HCl (Desyrel) 100 mg PO HS [facility] Last Admin: 07/26/18 20:13 Dose: 100 mg
--- NOTE | 2018-07-27 14:44 | PRG ---
DATE OF SERVICE: 07/27/2018 SERVICE: Pulmonary Medicine. INTERVAL HISTORY: The patient is doing really well from respiratory standpoint. Breathing comfortably. There has been no interval change to his condition. He denies any current shortness of breath or chest discomfort. His weakness is improving a little bit. He has yet to be out of bed this morning, however. PHYSICAL EXAMINATION: VITAL SIGNS: Afebrile, pulse 89, blood pressure 150/98, respirations 16, and saturation 95% on room air. GENERAL: The patient is awake and alert, in no apparent distress. LUNGS: Excellent air entry. I do not appreciate any prolonged expiratory phase or wheezing. HEART: Normal rate and regular. ABDOMEN: Soft, nontender, and nondistended. Bowel sounds are positive. MUSCULOSKELETAL: No cyanosis or clubbing. No pitting in the bilateral lower extremities. NEUROLOGIC: Grossly nonfocal. LABORATORY DATA: WBC 6.6, hemoglobin 14.3, and platelets 192,000. INR 1.0. Basic metabolic profile and liver function studies are otherwise unremarkable. CRP is 0.7 with a troponin of 0.01. Urinalysis is essentially unremarkable except for minimal glycosuria. Blood cultures x2 and urine culture remain negative. IMAGING STUDIES: 1. CT of the [place] demonstrates no filling deficit. 2. CT of the brain demonstrates no acute intracranial abnormality. 3. CTA of the chest demonstrates a very small pulmonary embolism in 2 segments of the pulmonary arteries. I do not appreciate any consolidating changes. I do not appreciate any acute cardiopulmonary abnormalities. There is a very small pulmonary embolism. However, this does not translate the right ventricular heart strain or reflux of contrast into the inferior vena cava. ASSESSMENT: 1. Acute pulmonary embolism, quite small. (The patient was not on his Eliquis twice daily as directed). 2. Bipolar disorder. 3. Coronary artery disease. DISCUSSION AND PLAN: I have to agree with Dr. Shields. I do not think the small PE is creating the patient's symptoms. He is completely asymptomatic to it otherwise. At this point, we will put him back on b.i.d. dosing of Eliquis (previously was only taking 5 mg tablet once daily). Pulmonary will continue to follow along while the patient remains in-house, but from purely respiratory perspective, he will be stable for transition out of the hospital once his other medical conditions are stable/resolved. We will focus on mobilization efforts through the day. Job ID: [id number]
[2018-07-27] MEDS ORDERED: ISOVUE-370 76%-LOCM 1 ML ONE (14:52)
[2018-07-27] MEDS: risperiDONE 1 MG TAB PO SCH (20:39)
[2018-07-27] MEDS: Atorvastatin Calcium 10 MG TAB PO SCH (20:39)
[2018-07-27] MEDS: HumaLOG 300 UNITS/3 ML VIAL SC PRN (20:57)
--- NOTE | 2018-07-27 21:21 | EKG ---
Test Reason : Blood Pressure : / mmHG Vent. Rate : 094 BPM Atrial Rate : 094 BPM P-R Int : 200 ms QRS Dur : 108 ms QT Int : 350 ms P-R-T Axes : 060 058 028 degrees QTc Int : 437 ms Normal sinus rhythm Normal ECG When compared with ECG of 05-APR-2018 07:06, No significant change was found Confirmed by CASSIUS LUNDBERG, SWil ([id number]) on 07/27/2018 9:20:45 PM Referred By: RANULFO Confirmed By:DR. Paula HAMMONDS MD
[2018-07-28] MEDS: HYDROcodone/Acetaminophen 10/325 mg Tablet PO PRN ×3 (06:12→18:51)
[2018-07-28] MEDS: Apixaban 5 MG TAB PO SCH ×3 (09:38→20:04)
[2018-07-28] MEDS: clonazePAM 1 MG TAB PO SCH ×4 (09:38→20:00)
--- NOTE | 2018-07-28 09:45 | PRG ---
DATE OF SERVICE: 07/28/2018 SERVICE: Pulmonary Medicine. INTERVAL HISTORY: The patient is doing fine from respiratory standpoint. He remains on room air. Denies any current chest pain, fevers, or chills. At this point, he is now complaining of left arm weakness. Previously, it was right leg weakness. He has no other specific complaints of fevers, chills, cough, sputum production, nausea, or vomiting. He is currently getting in his room. There has been no interval change to his condition otherwise. PHYSICAL EXAMINATION: VITAL SIGNS: Afebrile, pulse 81, blood pressure 169/93, respirations 18, saturation 97% on room air. GENERAL: The patient is awake and alert, in no apparent distress. LUNGS: Excellent air entry. No prolonged expiratory phase or wheezing is appreciated. HEART: Normal rate, regular. ABDOMEN: Soft, nontender,nondistended. Bowel sounds are positive. MUSCULOSKELETAL: No cyanosis or clubbing. No pitting in the bilateral lower extremities. LABORATORY DATA: Blood sugar 142. Troponin was previously unremarkable. Blood cultures x2 and urine culture negative. ASSESSMENT: 1. Acute pulmonary embolism, recurrent. 2. Bipolar disorder. 3. Coronary artery disease. DISCUSSION AND PLAN: The patient is going to require full-dose anticoagulation for life. At this point, he has no requirements for inpatient Pulmonary Critical Care opinion. As such, I will sign off. Please call with additional questions or concerns through time. He is stable for discharge from purely respiratory perspective, though the Primary Service is looking into this other weakness issue. Job ID: [id number]
[2018-07-28] MEDS: Ondansetron PF 4 MG/2 ML Vial IVP PRN (10:43)
[2018-07-28] MEDS ORDERED: Lisinopril 20 MG TAB PO SCH (11:29)
--- NOTE | 2018-07-28 11:51 | PRG ---
DATE OF SERVICE: 07/28/2018 SUBJECTIVE: The patient is seen and examined at the bedside. He still has some complaints about his left upper extremity, which seems to be weaker to him, but also he complains about some pain in the muscles and joints in the left shoulder. OBJECTIVE: VITAL SIGNS: Blood pressure is 169/93, pulse is 81, temperature is 97.4, respirations 18, O2 saturation 97% on room air. HEENT: His head is atraumatic and normocephalic. Eyes are PERRLA. Sclerae are nonicteric. Oral mucosa is moist. NECK: Supple. LUNGS: Clear. HEART: S1, S2 normal. No S3. No S4. No any murmur. ABDOMEN: Soft, nontender. Bowel sounds are present. No organomegaly. EXTREMITIES: Left upper extremity seems to be slightly weaker 4/5. The rest of extremities are 5/5. SKIN: No rash or erythema. NEUROLOGIC EXAMINATION: He follows my commands. He does not have any sensory deficits. Motor function as described above. LABORATORY DATA: Glycemia is ranging from 142 to 274. Microbiology, blood cultures negative x2. [place] [id number] [place] [id number] colonies of mixed skin deena present, which is nondiagnostic. IMPRESSION: 1. Generalized weakness. 2. Recurrent pulmonary embolism. 3. Bipolar disorder. 4. Coronary artery disease. 5. Anxiety disorder. 6. Seizures. 7. Diabetes mellitus type 2. 8. Hypertension. PLAN: Risperdal dose was decreased to 4 mg at bedtime to see whether this is going to be helping to improve his strength. His workup did not show any acute CVA. His blood pressure is running high. I am going to restart his lisinopril and we are going to restart his . We will continue PT and as soon as his blood pressure is under control, I am going to discharge him home. Job ID: [id number]
[2018-07-28] MEDS: HumaLOG 300 UNITS/3 ML VIAL SC PRN ×3 (11:58→21:44)
[2018-07-28] MEDS ORDERED: Lisinopril 10 MG TAB PO SCH (12:15)
[2018-07-28] MEDS: risperiDONE 1 MG TAB PO SCH (19:59)
[2018-07-28] MEDS: Atorvastatin Calcium 10 MG TAB PO SCH (20:04)
[2018-07-29] MEDS: HYDROcodone/Acetaminophen 10/325 mg Tablet PO PRN ×4 (01:03→20:20)
[2018-07-29] MEDS: Ondansetron PF 4 MG/2 ML Vial IVP PRN ×2 (03:26→20:26)
[2018-07-29] MEDS: HumaLOG 300 UNITS/3 ML VIAL SC PRN ×4 (06:01→23:08)
[2018-07-29] MEDS: Lisinopril 10 MG TAB PO SCH (09:06)
[2018-07-29] MEDS: clonazePAM 1 MG TAB PO SCH ×4 (09:06→21:19)
[2018-07-29] MEDS: Apixaban 5 MG TAB PO SCH ×2 (09:07→21:18)
[2018-07-29] MEDS: Etodolac ER 400 mg Tablet PO SCH (12:01)
[2018-07-29 12:35] LABS: Albumin (w/Testosterone Panel) 3.9 g/dL
[2018-07-29 13:00] LABS: Sex Hormone Binding Globulin 48.1 nmol/L (11-78); Testosterone, Free 57.6 pg/mL (47-244); Testosterone, Total 354.3 ng/dL (221-716)
--- NOTE | 2018-07-29 13:37 | PRG ---
DATE OF SERVICE: 07/29/2018 SUBJECTIVE: The patient is seen and examined at bedside. His , his son, his grandson, and his friend are in the room during my visit. He still complains about his left shoulder discomfort and quite profound tiredness. His friend noticed that he dozes off very frequently during his visit today. OBJECTIVE: VITAL SIGNS: Blood pressure is 149/82, pulse is 92, temperature is 98.2, respirations 16, O2 saturation is 96% on room air. HEENT: His head is atraumatic and normocephalic. Eyes are PERRLA. Sclerae are nonicteric. Oral mucosa is moist. NECK: Supple. LUNGS: Clear. HEART: S1, S2 normal. No S3. No S4. ABDOMEN: Soft, nontender, nondistended. EXTREMITIES: No clubbing, cyanosis, or edema. NEUROLOGICAL: He is alert and oriented x4. There is no any sensory or motor deficits present. Cranial nerves are intact, but it looks like he dozes off quite frequently even during my visit. LABORATORY DATA: Glycemia is ranging from 148 to 251. Testosterone level 354, free testosterone 57.6. Microbiology, no new findings. Blood cultures negative. Urine culture is growing 50,000 to 70,000 colonies of mixed skin deena, which is not diagnostic at all. IMPRESSION: 1. Generalized weakness is felt to be secondary to his multiple psych medications at high doses. 2. Recurrent pulmonary embolism, on Eliquis or other anticoagulant for life. 3. Bipolar disorder. 4. Coronary artery disease. 5. Anxiety disorder. 6. Sleep apnea. 7. Seizures. 8. Diabetes mellitus type 2. 9. Hypertension. PLAN: Plan is to cut back again on his Risperdal to 2 mg at bedtime and clonazepam to 1 mg four times a day instead of 2 mg four times a day. I am going to stop his gabapentin. I am going to start him on etodolac, nonsteroidal anti-inflammatory agent to help his shoulder discomfort, which is most likely osteoarthritic. After his discharge from the hospital, he will need to follow up with Dr. Otoole to put him back on his CPAP. This could be an another reason why he is drowsy in the morning and he dozes off quite frequently. Job ID: [id number]
[2018-07-29] MEDS ORDERED: Alogliptin 25 MG TAB PO SCH (21:00)
[2018-07-29] MEDS ORDERED: risperiDONE 1 MG TAB PO SCH (21:00)
[2018-07-29] MEDS: Atorvastatin Calcium 10 MG TAB PO SCH (21:17)
[2018-07-30] MEDS: HYDROcodone/Acetaminophen 10/325 mg Tablet PO PRN ×2 (02:30→10:44)
[2018-07-30] MEDS: Ondansetron PF 4 MG/2 ML Vial IVP PRN (05:17)
[2018-07-30] MEDS: HumaLOG 300 UNITS/3 ML VIAL SC PRN ×2 (06:19→10:43)
[2018-07-30] MEDS: clonazePAM 1 MG TAB PO SCH ×2 (09:33→13:13)
[2018-07-30] MEDS: Etodolac ER 400 mg Tablet PO SCH (09:34)
[2018-07-30] MEDS: Apixaban 5 MG TAB PO SCH (09:34)
[2018-07-30] MEDS: Lisinopril 10 MG TAB PO SCH (09:35)
[2018-07-30 11:42] VITALS: BP 153/99; TEMP 98.4
--- NOTE | 2018-07-30 13:39 | DIS ---
DATE OF ADMISSION: 07/26/2018 DATE OF DISCHARGE: 07/30/2018 PRIMARY CARE PHYSICIAN: Dr. Cohen. FINAL DIAGNOSES: 1. Generalized weakness, felt to be secondary to high doses of his multiple psych medications. 2. Recurrent pulmonary embolism on Eliquis or other anticoagulant full life. 3. Bipolar disorder. 4. Chest pain, acute coronary syndrome was ruled out. 5. Coronary artery disease. 6. Anxiety disorder. 7. Sleep apnea. 8. Seizure disorder. 9. Diabetes mellitus type 2. 10. Hypertension. AUTOMOTIVE ELECTRICIAN HELPER: John Shields MD, Pulmonary Service. HOSPITAL COURSE: The patient was a 58-year-old male, who was admitted to the hospital with complaints of weakness and chest pain. Apparently, he is trying to recover from his back surgery. He was getting PT for that and he started having some feeling of generalized weakness. When he presented to the emergency room, he also had some complaints about some chest pain. His dimers were elevated, so his chest was scanned and it showed small pulmonary embolism on the right side. The patient is to the hospital for further evaluation. He was seen by Dr. Shields for Pulmonary evaluation of his recurrent PE and he agreed with continuation of his Eliquis that he was on a prior to this hospitalization. CAT scan of the tiny embolus was localized in the right main descending pulmonary artery, will be determined whether this was a new residual. The patient had several troponins done, which came back negative, so acute coronary syndrome was ruled out. He does not complain of any chest pain anymore. There was a code green code during this hospitalization, where he started having some left upper extremity weakness, relatively sudden onset and he underwent several images. Brain CT was done, which did not show any acute intracranial hemorrhage or mass effect. Also, he had CT [place] with contrast done, which showed no high-grade stenosis or occlusion of the major arterial system of the head and neck. Finally, it was felt that this was most likely related to his left shoulder. Pain he complained about and voluntarily not using this left upper extremity because of the pain. Dr. Otoole was following Dr. Shields after his initial consultation and he did Eliquis twice a day. For some reason, the patient was not on twice a day dosing at home, he was just once daily. During this hospitalization, we checked his testosterone level for possible cause of his generalized weakness, but the level came back at 354, which is somewhat borderline, but it is still in the normal range, which starts at 222 up to 716. His free testosterone was 57.6 and the range is from 47 to 244. So, we noticed that the patient was not able to stay awake all the time during his conversation with us in the hospital and we cut back on the dose of his medications, his Risperdal was decreased. His clonazepam was decreased and gabapentin was stopped. He seems to be doing somewhat better, but he still feels fatigued and tired. We could not find any other reason for him to be that way. His CBC did not show any anemia. His kidney function is normal. He has some labile diabetes. Today; his blood pressure is 153/87, pulse is 95, temperature is 98.6, respiratory rate is 20, and O2 saturation is 94% on room air. He is seen and examined before his discharge. DIET: He is discharged on a diabetic diet 2000 calories. ACTIVITIES: As tolerated. DISPOSITION: He is discharged home. INSTRUCTIONS: He will continue his PT on outpatient basis for his back surgery recovery. DISCHARGE MEDICATIONS: His medications at the time of discharge; 1. Metformin 500 mg once a day. 2. Phenytoin extended release 500 mg once a day q.p.m. 3. Hydrocodone 10/325 two tablets every 6 hours p.r.n. as needed. 4. Aspirin 81 mg once a day. 5. Apixaban 5 mg twice a day. 6. Lisinopril 20 mg once a day. 7. Atorvastatin 10 mg at bedtime. 8. Ranitidine 150 mg once a day. 9. Glipizide 20 mg daily. 10. Sitagliptin, which is Januvia 100 mg q.p.m. 11. Trazodone 100 mg at bedtime. 12. Risperdal 2 mg at bedtime. 13. Clonazepam 1 mg 4 times a day. FOLLOWUP: He will follow up with his primary care physician, Dr. Cohen in 1 week and he will try to move his appointment with psychiatrist sooner in approximately 2 weeks. His regular appointment is at the end of August. He needs to take his Eliquis for life according to Dr. Otoole's recommendation, but he needs to follow up with him in the next most likely 3 months. Job ID: [id number]
== END 2018-07-30 13:35 | disposition home or self-care (01) | DRG 947 ==
LOC: ERS 07:32 → ERHOLD 10:28 → OBSVTOIN 10:28 → 2NO 16:18 → 2SE 07-27 05:58
PROVIDERS: ADMIT Internal Medicine; ATTEND Internal Medicine
DX: R53.1 Weakness (principal); I26.99 Other pulmonary embolism without acute cor pulmonale; E87.2 Acidosis; E11.65 Type 2 diabetes mellitus with hyperglycemia; I10 Essential (primary) hypertension; G40.909 Epilepsy, unspecified, not intractable, without status epilepticus; G89.4 Chronic pain syndrome; E78.5 Hyperlipidemia, unspecified; F31.9 Bipolar disorder, unspecified; I25.10 Atherosclerotic heart disease of native coronary artery without angina pectoris; F41.9 Anxiety disorder, unspecified; G47.30 Sleep apnea, unspecified; F17.290 Nicotine dependence, other tobacco product, uncomplicated; T43.595A Adverse effect of other antipsychotics and neuroleptics, initial encounter; T42.4X5A Adverse effect of benzodiazepines, initial encounter; Z79.01 Long term (current) use of anticoagulants; Z79.84 Long term (current) use of oral hypoglycemic drugs; Z79.82 Long term (current) use of aspirin; Z79.899 Other long term (current) drug therapy
CPT/HCPCS: 36415; 36416; 70450; 70496; 70498; 71045; 71275; 80053; 81003; 82550; 83036; 83605; 84270; 84403; 84484; 85025; 85379; 85610; 85652; 85730; 86140; 87040; 87086; 93005; 93010; 93306; 96361; 96372; 96374; J1650; J2405; J3010; Q9966

== ENCOUNTER 2018-09-05 15:54 | Outpatient (CLI) | payer MEDICARE ==
--- NOTE | 2018-09-05 16:17 | RAD ---
LUMBAR SPINE TWO VIEW: 09/05/18 HISTORY: M43.16 - lumbar radiculopathy. COMPARISON: Radiographs 06/08/18. FINDINGS: Similar appearance of the posterior spinal fusion hardware at L4-S1 with discectomy change at L4-5. N o evidence for hardware complication. No migration of the discectomy spacer. Likely a ventral hernia repair in the past. Low grade L3 over L4 retrolisthesis, degenerative in natu re. IMPRESSION: Similar appearance of the posterior spinal fusion hardware. POS: [facility]
== END 2018-09-05 15:55 | disposition home or self-care (01) ==
LOC: TBSIIMAG 15:54
PROVIDERS: ATTEND Neurological Surgery
DX: M43.16 Spondylolisthesis, lumbar region (principal); Z98.1 Arthrodesis status
CPT/HCPCS: 72100

== ENCOUNTER 2018-12-19 15:53 | Observation (INO) | payer MEDICARE ==
--- NOTE | 2018-12-19 16:25 | RAD ---
Chest one view HISTORY: Weakness. Chest pain. COMPARISON: 07/26/2018. FINDINGS: Cardiac silhouette is magnified by projection. Pulmonary vasculature is unremarkable. Media stinum is midline. No confluent airspace consolidation or evidence of pneumothorax. Chronic deformities of the distal aspect of the left clavicle and the left first rib are unchanged. IMPRESSION: No active cardiopulmonary abnormalities are demonstrated.
[2018-12-19 16:42] LABS: Bilirubin Negative (Negative); Blood, Urine Negative (Negative); Glucose, Urine (Dipstick) Negative (Negative); Leukocyte Negative (Negative); Nitrite Negative (Negative); Protein, Urine (Dipstick) Negative (Neg-Trace); Urobilinogen 0.2 mg/dL (Less than 2)
[2018-12-19 16:46] LABS: Clarity Clear (Clear)
--- NOTE | 2018-12-19 16:54 | CT ---
CT head noncontrast HISTORY: Falls. Head injury. COMPARISON: 07/27/2018. FINDINGS: There is no evidence of acute intracranial hemorrhage or infarct. Mild diffuse cortical atr ophy and chronic ischemic small vessel disease. There is no mass effect or shift of midline structures. Visualized paranasal sinuses remain well aerated. IMPRESSION: No acute intracranial abnormalities are demonstrated. Chronic-type findings are stable
[2018-12-19 17:31] LABS: #Eosinphils 0.2 thou/uL (0.0-0.7); #Lymphocytes 2.4 thou/uL (1.20-3.40); #Monocytes 0.8 thou/uL (0.11-0.59); %Basophils 0.2 % (0.0-1.0); %Eosinophils 1.9 % (0.0-10.0); %Lymphocytes 28.6 % (21.0-51.0); %Monocytes 9.6 % (0.0-10.0); %Neutrophils 59.7 % (42.0-75.0); Hemoglobin 12.8 g/dL (14.0-18.0); Mean Corpuscular HGB CONC 34.5 g/dL (32.0-36.0); Mean Corpuscular Hemoglobin 30.6 pg (27.0-31.0); Mean Corpuscular Volume 88.8 fL (78.0-98.0); Mean Platelet Volume 8.3 fL (7.4-10.4); Platelet Count 185 thou/uL (130-400); RBC Distribution Width 12.1 % (11.5-14.5); Red Blood Cell (RBC) Count 4.17 mill/uL (4.70-6.10); White Blood Cell (WBC) Count 8.3 thou/uL (4.8-10.8)
[2018-12-19 17:54] LABS: ALT (SGPT) 12 U/L (8-55); AST (SGOT) 13 U/L (5-34); Albumin 3.5 g/dL (3.5-5.0); Alkaline Phosphatase 132 U/L (40-150); Anion Gap 12 mmol/L (10-20); BUN (Urea Nitrogen) 11 mg/dL (8.4-25.7); Bilirubin, Total 0.2 mg/dL (0.2-1.2); Calc. Creatinine Clearance 0 mL/min (70-130); Calcium 9.3 mg/dL (7.8-10.44); Carbon Dioxide 26 mmol/L (22-29); Chloride 105 mmol/L (98-107); Estimated GFR-MDRD Greater than 90; Globulin 2.2 g/dL (2.4-3.5); Glucose 115 mg/dL (70-105); Potassium 4.1 mmol/L (3.5-5.1); Protein, Total 5.7 g/dL (6.0-8.3); Sodium 139 mmol/L (136-145)
--- NOTE | 2018-12-19 18:42 | RAD ---
LEFT KNEE FOUR VIEW: 12/19/18 HISTORY: Left sided weakness and fall. COMPARISON: None. FINDINGS: There is mild articular surface remodeling of the lateral compartment involving the lateral tibial pl ateau and lateral femoral condyle. No significant joint effusion. Mild patellofemoral degenerative ch [place]inthia. No acute fracture or malalignment. IMPRESSION: No acute fracture. Moderate degenerative change. POS: [facility]
[2018-12-19] MEDS ORDERED: Aspirin 325 MG TAB ONE (19:07)
[2018-12-19] MEDS ORDERED: HYDROcodone/Acetaminophen 5/325 mg Tablet ONE (20:24)
[2018-12-19] MEDS ORDERED: Dextrose 50% Abboject 50 ML SYRINGE SLOW IVP PRN (21:55)
[2018-12-19] MEDS ORDERED: HumaLOG 300 UNITS/3 ML VIAL SC PRN (21:55)
[2018-12-19] MEDS ORDERED: Dextrose 5% in Water 1,000 ML IV PRN (21:55)
[2018-12-19] MEDS ORDERED: Gabapentin 300 MG CAP PO SCH (23:00)
[2018-12-19] MEDS ORDERED: HYDROcodone/Acetaminophen 10/325 mg Tablet PO PRN (23:13)
[2018-12-19] MEDS: HYDROcodone/Acetaminophen 10/325 mg Tablet PO PRN (23:44)
--- NOTE | 2018-12-20 00:31 | HP ---
PRIMARY CARE PHYSICIAN: Larissa Jones. CHIEF COMPLAINT: Left lower extremity weakness and confusion. HISTORY OF PRESENT ILLNESS: Mr. Gupta is a pleasant 58-year-old gentleman, with past medical history significant for type 2 diabetes mellitus, seizure disorder, hypertension, hyperlipidemia, chronic low back pain, and right lower extremity pain and atrophy, status post laminectomy about a year and a half ago, who presented to the hospital with complaints of a 1-week history of confusion, and a 2-day history of left lower extremity weakness. The patient describes the weakness as a "heaviness", and states that his leg seems to just "give out on him." He states that his knee has been buckling and he has had a mechanical fall x1. The patient is a somewhat poor historian, and cannot describe the sensation in any more detail. Because of his increasing confusion and symptoms, he did come to the emergency department today for further workup and treatment. He states that at this point , he cannot ambulate at all and his 2 grown sons had to help him get into the car today. Normally, the patient uses a walker. On arrival to the emergency department, the patient underwent a CT of the brain, which showed no acute intracranial abnormalities, there was chronic type findings of ischemic small-vessel disease. He had an x-ray of his left knee, which showed moderate degenerative changes and no acute fracture. His chest x-ray was unremarkable. Overall, his lab work was unremarkable as well. There was no sign of any infection. The patient has denied any nausea or vomiting. No fever or chills. No chest pain or shortness of breath. He is alert and oriented x3 upon my interview. REVIEW OF SYSTEMS: 12-point review of systems was performed. As previously mentioned, the patient does have persistent and chronic low back pain and right lower extremity pain following a lumbar surgery about a year and a half ago. All of his other systems were reviewed. All pertinent positives and negatives are noted in the History of Present Illness. PAST MEDICAL HISTORY: Type 2 diabetes mellitus, hypertension, hyperlipidemia, chronic degenerative back pain, lumbar disease and right lower extremity pain, bipolar and schizophrenia disorder, seizure disorder, recurrent DVT and PEs, currently anticoagulated with Eliquis, BPH status post TURP. PAST SURGICAL HISTORY: Lumbar fusion in March 2018, herniorrhaphy, appendectomy, orthopedic repair of shoulder, and TURP. FAMILY HISTORY: Positive for IN in his father who at the age of 50. SOCIAL HISTORY: The patient is . He has 3 grown children. No alcohol or drug use. He does admit to smokeless tobacco use occasionally. ALLERGIES: MORPHINE. CURRENT MEDICATIONS: 1. Eliquis 5 mg tablet one tablet p.o. b.i.d. 2. Aspirin 81 mg tablet daily. 3. Atorvastatin 10 mg p.o. at bedtime. 4. Glipizide 20 mg p.o. b.i.d. 5. Hydrocodone 10/325 tabs, he takes 2 tabs every 6 hours per the patient. 6. Gabapentin 300 mg p.o. at bedtime. 7. Lamictal 100 mg tablet 1 tablet daily. 8. Lisinopril 10 mg p.o. daily. 9. Metformin 500 mg p.o. q.a.m. with meals. 10. Phenytoin 200 mg p.o. q.p.m. 11. Ranitidine 150 mg p.o. daily. 12. Januvia 100 mg p.o. q.p.m. 13. Tamsulosin 0.4 mg p.o. at bedtime. 14. Trazodone 100 mg p.o. at bedtime. PHYSICAL EXAMINATION: VITAL SIGNS: Blood pressure 119/74, pulse is 87, respirations 20, O2 saturation is 98% on room air. GENERAL: This patient is a middle-aged gentleman who is resting comfortably in bed, in no acute distress. HEENT: Head is atraumatic and normocephalic. Mucous membranes are moist. Poor dentition. NECK: Trachea is midline. No JVD. No lymphadenopathy. CV: S1 and S2. Regular rate and rhythm. No appreciable murmurs, rubs, or gallops. LUNGS: Regular respiratory rate and pattern. Clear to auscultation bilaterally. ABDOMEN: Positive bowel sounds. Soft, mildly obese. EXTREMITIES: No edema. He has 5/5 bilateral strength upon my exam, although seems to be limited as far as pain from how far he can lift his leg off the bed due to his radiculopathy. PSYCHIATRIC: Alert and oriented x3. LABORATORY DATA: White blood cell count 8.3, hemoglobin 12.8, hematocrit 37, platelet count is 185. Sodium 139, potassium 4.1, chloride 105, anion gap 12, BUN 11, creatinine 0.73. AST 13, ALT 12, alkaline phosphatase 132. Urinalysis was negative. Phenytoin level 16. ASSESSMENT: 1. Left lower extremity weakness, concerning for transient ischemic attack versus cerebrovascular accident. 2. Altered mental status/confusion x1 week intermittently, no obvious infectious cause, concerning for cerebrovascular accident with focal weakness as above. 3. Bipolar/schizophrenia. 4. Multiple pulmonary embolism/deep venous thromboses, anticoagulated with Eliquis. 5. Type 2 diabetes mellitus. 6. Seizure disorder. 7. Right lower extremity atrophy and pain following lumbar laminectomy, 2018. 8. Hyperlipidemia. 9. Hypertension. 10. Gastroesophageal reflux disease. 11. Chronic pain, on opioid at home. PLAN: At this time, we will continue CVA rule out with an MRI to be performed tomorrow. The patient did have a CTA this year, July 2018, which was negative. It showed no evidence of any carotid artery stenosis or problems with the pilot point of [place] or branches. We will continue home medications. Sliding scale insulin. DVT prophylaxis deferred as patient is already on Eliquis and will continue this. I will consult Physical Therapy for the patient as he is having some difficulty ambulating at this point. If MRI is positive, we will consult Stroke Team and Neurology tomorrow. Continue aggressive risk factor modifications. [facility] ID[facility] [id number] [facility]
[2018-12-20 02:08] VITALS: BMI 28.3
[2018-12-20] MEDS: HYDROcodone/Acetaminophen 10/325 mg Tablet PO PRN ×4 (04:18→19:11)
[2018-12-20 05:19] LABS: Cardiac Risk 3.8 (Less than 4.5)
[2018-12-20] MEDS: HumaLOG 300 UNITS/3 ML VIAL SC PRN (06:13)
[2018-12-20] MEDS ORDERED: Lorazepam 2 MG/ML VIAL SLOW IVP SCH (07:45)
[2018-12-20] MEDS ORDERED: RANITIDINE HCL 150 MG PO SCH (09:00)
[2018-12-20] MEDS: Lorazepam 2 MG/ML VIAL SLOW IVP PRN (09:48)
[2018-12-20] MEDS: Famotidine 20 MG TAB PO SCH (09:49)
[2018-12-20] MEDS: Lisinopril 20 MG TAB PO SCH (09:49)
[2018-12-20] MEDS: Apixaban 5 MG TAB PO SCH ×2 (09:51→22:26)
[2018-12-20] MEDS: Alogliptin 25 MG TAB PO SCH (09:52)
[2018-12-20] MEDS: Aspirin 81 mg Enteric Coated Tablet PO SCH (09:52)
[2018-12-20] MEDS: metFORMIN 500 MG TAB PO SCH (09:52)
[2018-12-20] MEDS: lamoTRIgine 100 MG TAB PO SCH (09:52)
--- NOTE | 2018-12-20 12:15 | MRI ---
MRI BRAIN WITHOUT CONTRAST: HISTORY: Stroke. CORRELATION: CT scan from previous day. FINDINGS: No restricted diffusion is seen. No evidence of infarct, hemorrhage, midline shift, or abnormal extr aaxial fluid collections is seen. The ventricular size is appropriate and the basilar cisterns are p atent. The visualized paranasal sinuses and mastoid air cells are well aerated. IMPRESSION: No evidence of acute intracranial process. POS: [facility]
--- NOTE | 2018-12-20 18:08 | PDOC.HOSPP ---
- Subjective Encounter Date: 12/20/18 Encounter Time: 18:06 Subjective: Mr. Gupta was seen today in follow-up of left leg weakness. He notes several falls in the past few week. He also notes a pain in his lower back, as well as radiating into his leg. - Objective Vital Signs & Weight: Vital Signs (12 hours) Temp Pulse Pulse Pulse Resp BP BP 12/20/18 15:49 98.2 F 98 20 12/20/18 15:02 12/20/18 12:10 98.2 F 93 20 12/20/18 09:49 176/91 H 12/20/18 08:50 92 94 175/91 H 12/20/18 07:54 98 F 89 21 H BP BP BP Pulse Ox 12/20/18 15:49 173/92 H 97 12/20/18 15:02 148/74 H 12/20/18 12:10 183/83 H 97 12/20/18 09:49 12/20/18 08:50 173/91 H 12/20/18 07:54 176/91 H 98 Weight Weight 215 lb I&O: 12/19/18 12/20/18 12/21/18 06:59 06:59 06:59 Intake Total 720 556 Output Total 1400 990 Balance -680 -434 Result Diagrams: 12/19/18 17:16 12/19/18 17:16 Additional Labs: Accuchecks 12/20/18 12/20/18 12/20/18 16:48 12:17 05:49 POC Glucose 120 H 123 H 155 H 12/20/18 00:03 POC Glucose 210 H Hospitalist ROS - Medication Medications: Active Medications Generic Name Dose Route Start Last Admin Trade Name Freq PRN Reason Stop Dose Admin Hydrocodone Bitart/Acetaminophen 1 tab 12/19/18 23:40 12/20/18 14:09 [place] 10/325 PO 1 tab Q4H PRN Administration Pain Alogliptin Benzoate 25 mg 12/20/18 09:00 12/20/18 09:52 Alogliptin PO 25 mg DAILY MERCED Administration Apixaban 5 mg 12/20/18 09:00 12/20/18 09:51 Eliquis PO 5 mg BID MERCED Administration Aspirin 81 mg 12/20/18 09:00 12/20/18 09:52 Ecotrin PO 81 mg DAILY MERCED Administration Famotidine 20 mg 12/20/18 09:00 12/20/18 09:49 Pepcid PO 20 mg DAILY MERCED Administration Insulin Human Lispro 0 units 12/19/18 21:55 12/20/18 06:13 Humalog SC 2 unit .MILD SLIDING SCALE PRN Administration Mild Correctional Scale Lamotrigine 100 mg 12/20/18 09:00 12/20/18 09:52 Lamictal PO 100 mg DAILY MERCED Administration Lisinopril 10 mg 12/20/18 09:00 12/20/18 09:49 Zestril PO 10 mg DAILY MERCED Administration Lorazepam 1 mg 12/20/18 08:38 12/20/18 09:48 Ativan SLOW IVP 1 mg Q6H PRN Administration Anxiety/Agitation Metformin HCl 500 mg 12/20/18 08:00 12/20/18 09:52 Glucophage PO 500 mg QAM-WM MERCED Administration - Exam Eye: PERRL, anicteric sclera Heart: RRR, no murmur, no gallops, no rubs, normal peripheral pulses Respiratory: CTAB, no wheezes, no rales, no ronchi, normal chest expansion Gastrointestinal: soft, non-tender, non-distended, normal bowel sounds, no palpable masses, no hepatomegaly, no splenomegaly Extremities: no edema (+ slight weakness in the left lower extremity, he can doriflex the 1st toe, on the left but it is weaker than the right- negative straight leg raise) Hosp A/P (1) Left leg weakness Code(s): R29.898 - [facility] SYMPTOMS AND SIGNS INVOLVING THE MUSCULOSKELETAL SYSTEM Status: Acute (2) CAD (coronary artery disease) Code(s): I25.10 - ATHSCL HEART DISEASE OF [place] CORONARY ARTERY W/O ANG PCTRS Status: Chronic Qualifiers: Coronary Disease-Associated Artery/Lesion type: [place] artery [place] vs. transplanted heart: [place] heart (3) Diabetes mellitus, type II Status: Chronic Qualifiers: Diabetes mellitus long term care social worker insulin use: without usp use Diabetes mellitus complication status: with neurologic complications Diabetes mellitus complication detail: with unspecified neuropathy Qualified Code(s): E11.40 - Type 2 diabetes mellitus with diabetic neuropathy, unspecified (4) Hypertension Code(s): I10 - ESSENTIAL (PRIMARY) HYPERTENSION Status: Chronic Qualifiers: Hypertension type: essential hypertension - Plan * Left Leg weakness- MRI brain-was negative * Will check an MRI of the Lumbar Spine, as his symptoms are consistent with a Lumbar radiculopathy * CAD- stable * HTN- blood pressure is a bit elevated- will monitor the trend, and may need to adjust medications * DM- blood glucose is stable
[2018-12-20] MEDS ORDERED: Tamsulosin HCl 0.4 MG CAP PO SCH (21:00)
[2018-12-20] MEDS ORDERED: Atorvastatin Calcium 10 MG TAB PO SCH (21:00)
[2018-12-20] MEDS ORDERED: traZODone HCl 50 MG TAB PO SCH (21:00)
[2018-12-20] MEDS ORDERED: Gabapentin 300 MG CAP PO SCH (21:00)
[2018-12-21] MEDS: HYDROcodone/Acetaminophen 10/325 mg Tablet PO PRN ×3 (06:23→16:51)
[2018-12-21] MEDS: Lorazepam 2 MG/ML VIAL SLOW IVP PRN (07:26)
--- NOTE | 2018-12-21 08:53 | MRI ---
MRI LUMBAR SPINE WITHOUT CONTRAST: Date: 12/21/18 INDICATION: Left leg weakness. COMPARISON: 02/22/18. FINDINGS: There is susceptibility at the L4-S1 levels limiting visualization. Bilateral pedicle screws are pres ent at L4, L5, and S1. This does obscure detail within these regions, notably at the L4-5 and L5-S1 l evel. L3-4 level reveals mild central canal stenosis. Prominent nichols artifact to the right of midline obsc ures detail. There is crowding of the bilateral subarticular zones with crowding of the bilateral tra versing L4 nerve roots. No high grade foraminal stenosis. L2-3: Mild narrowing of central canal without high grade neural foraminal stenosis. L1-2: No high grade central canal stenosis or foraminal stenosis. Incidental note of scattered T1 hyperintensities of the marrow indicative of intraosseous hemangiomas and/or focal fat deposition. Partially imaged T2 hyperintensity of the left kidney may be related to parapelvic cyst or prominent gemini. IMPRESSION: Multilevel degenerative change of the postoperative lumbar spine as above. POS: [facility]
[2018-12-21] MEDS: Aspirin 81 mg Enteric Coated Tablet PO SCH (09:14)
[2018-12-21] MEDS: lamoTRIgine 100 MG TAB PO SCH (09:14)
[2018-12-21] MEDS: metFORMIN 500 MG TAB PO SCH (09:14)
[2018-12-21] MEDS: Alogliptin 25 MG TAB PO SCH (09:14)
[2018-12-21] MEDS: Famotidine 20 MG TAB PO SCH (09:14)
[2018-12-21] MEDS: Lisinopril 20 MG TAB PO SCH (09:14)
[2018-12-21] MEDS: Apixaban 5 MG TAB PO SCH (09:14)
[2018-12-21] MEDS: HumaLOG 300 UNITS/3 ML VIAL SC PRN (11:34)
--- NOTE | 2018-12-21 15:47 | PDOC.HOSPP ---
- Subjective Encounter Date: 12/21/18 Encounter Time: 15:44 Subjective: Mr. Gupta was seen today in follow-up of left leg pain. He is sitting up in bed eating and appeared comfortable. - Objective Vital Signs & Weight: Vital Signs (12 hours) Temp Pulse Resp BP BP Pulse Ox 12/21/18 12:05 98.6 F 95 26 H 171/86 H 97 12/21/18 09:14 171/87 H 12/21/18 07:42 98.5 F 94 20 171/87 H 96 Weight Weight 215 lb I&O: 12/20/18 12/21/18 12/22/18 06:59 06:59 06:59 Intake Total 720 1546 600 Output Total 1400 2190 300 Balance -680 -644 300 Result Diagrams: 12/19/18 17:16 12/19/18 17:16 Additional Labs: Accuchecks 12/21/18 12/21/18 12/20/18 11:15 06:14 20:54 POC Glucose 202 H 131 H 262 H 12/20/18 16:48 POC Glucose 120 H Hospitalist ROS - Medication Medications: Active Medications Generic Name Dose Route Start Last Admin Trade Name Freq PRN Reason Stop Dose Admin Hydrocodone Bitart/Acetaminophen 1 tab 12/19/18 23:40 12/21/18 10:44 [place] 10/325 PO 1 tab Q4H PRN Administration Pain Alogliptin Benzoate 25 mg 12/20/18 09:00 12/21/18 09:14 Alogliptin PO 25 mg DAILY MERCED Administration Apixaban 5 mg 12/20/18 09:00 12/21/18 09:14 Eliquis PO 5 mg BID MECRED Administration Aspirin 81 mg 12/20/18 09:00 12/21/18 09:14 Ecotrin PO 81 mg DAILY MERCED Administration Atorvastatin Calcium 10 mg 12/20/18 21:00 12/20/18 22:25 Lipitor PO 10 mg HS MERCED Administration Famotidine 20 mg 12/20/18 09:00 12/21/18 09:14 Pepcid PO 20 mg DAILY MERCED Administration Gabapentin 300 mg 12/20/18 21:00 12/20/18 22:25 Neurontin PO 300 mg HS MERCED Administration Insulin Human Lispro 0 units 12/19/18 21:55 12/21/18 11:34 Humalog SC 3 unit .MILD SLIDING SCALE PRN Administration Mild Correctional Scale Lamotrigine 100 mg 12/20/18 09:00 12/21/18 09:14 Lamictal PO 100 mg DAILY MERCED Administration Lisinopril 10 mg 12/20/18 09:00 12/21/18 09:14 Zestril PO 10 mg DAILY MERCED Administration Lorazepam 1 mg 12/20/18 08:38 12/21/18 07:26 Ativan SLOW IVP 1 mg Q6H PRN Administration Anxiety/Agitation Metformin HCl 500 mg 12/20/18 08:00 12/21/18 09:14 Glucophage PO 500 mg QAM-WM MERCED Administration Phenytoin Sodium 200 mg 12/20/18 21:00 12/20/18 22:26 Dilantin Er PO 200 mg QPM MERCED Administration Quetiapine Fumarate 25 mg 12/20/18 21:00 12/20/18 22:26 Seroquel PO 25 mg HS MERECD Administration Sodium Chloride 10 ml 12/19/18 21:49 12/20/18 22:28 Flush - Normal Saline IVF 10 ml PRN PRN Administration Saline Flush Tamsulosin HCl 0.4 mg 12/20/18 21:00 12/20/18 22:25 Flomax PO 0.4 mg HS MERCED Administration Trazodone HCl 100 mg 12/20/18 21:00 12/20/18 22:27 Desyrel PO 100 mg HS MERCED Administration - Exam Eye: PERRL, anicteric sclera Heart: RRR, no murmur, no gallops, no rubs, normal peripheral pulses Respiratory: CTAB, no wheezes, no rales, no ronchi, normal chest expansion Gastrointestinal: soft, non-tender, non-distended, normal bowel sounds, no palpable masses, no hepatomegaly, no splenomegaly Extremities: no edema Hosp A/P (1) Left leg weakness Code(s): R29.898 - [place] SYMPTOMS AND SIGNS INVOLVING THE MUSCULOSKELETAL SYSTEM Status: Acute (2) CAD (coronary artery disease) Code(s): I25.10 - ATHSCL HEART DISEASE OF [place] CORONARY ARTERY W/O ANG PCTRS Status: Chronic Qualifiers: Coronary Disease-Associated Artery/Lesion type: [place] artery [place] vs. transplanted heart: [place] heart (3) Diabetes mellitus, type II Status: Chronic Qualifiers: Diabetes mellitus mcc insulin use: without mcc use Diabetes mellitus complication status: with neurologic complications Diabetes mellitus complication detail: with unspecified neuropathy Qualified Code(s): E11.40 - Type 2 diabetes mellitus with diabetic neuropathy, unspecified (4) Hypertension Code(s): I10 - ESSENTIAL (PRIMARY) HYPERTENSION Status: Chronic Qualifiers: Hypertension type: essential hypertension - Plan * Left Leg weakness- Due to a Lumbar Radiculopathy- MRI results noted, and he does not require urgent Neurosurgical evaluation * CAD- stable * HTN- blood pressure is a bit elevated * DM- blood glucose is stable * Stable for discharge and will screen for inpatient Rehab, and anticipate admission from home.
[2018-12-21 17:22] VITALS: BP 150/73; TEMP 97.6
--- NOTE | 2018-12-22 15:13 | DIS ---
DATE OF ADMISSION: 12/19/2018 DATE OF DISCHARGE: 12/21/2018 DISCHARGE DISPOSITION: Home. DISCHARGE DIAGNOSES: 1. Lumbar disk disease. 2. Bipolar disorder. 3. Diabetes mellitus type 2. 4. Hypertension. 5. Hyperlipidemia. 6. Seizure disorder. DISCHARGE MEDICATIONS: Include, 1. Flomax 0.4 mg p.o. at bedtime. 2. Seroquel 300 mg at bedtime. 3. Dilantin 400 mg q.p.m. 4. Toprol-XL 25 mg daily. 5. Lisinopril 10 mg p.o. daily. 6. Lamictal 100 mg p.o. daily. 7. Glipizide 10 mg twice daily. 8. Gabapentin 300 mg t.i.d. 9. Doxycycline 100 mg twice a day. 10. Flexeril 10 mg t.i.d. 11. Clonazepam 2 mg daily and 2 mg b.i.d. p.r.n. 12. Atorvastatin 10 mg at bedtime. IMAGING STUDIES: During his hospital stay, he had a CT scan of the brain showing no acute intracranial abnormalities. Had an echocardiogram in which the ejection fraction was estimated at 60% to 65%. There was a grade 1/3 diastolic dysfunction, normal left ventricular size and function. MRI of the brain showing no acute intracranial process, and an MRI of the lumbar spine, which showed multilevel degenerative disease and some postoperative changes, but no significant spinal stenosis or evidence of infection. CODE STATUS: Full code. ALLERGIES: MORPHINE. HOSPITAL COURSE: Mr. Gupta is a pleasant 58-year-old gentleman, who was brought to the hospital due to concerns for left lower extremity weakness. It was initially felt that his symptoms could be related to possible a transient ischemic attack, and therefore, a stroke workup was undertaken, this was negative. On further questioning with the patient, he was also noting pain in his left leg as well, which was shooting down the back of his leg, and the symptoms had actually been going on for some time and gotten progressively worse. For this reason, an MRI was done, it did not show any significant change. He has a history of previous back problems, and MRI was obtained showing some degenerative disease, but nothing that would require urgent Orthopedic or Neurosurgery evaluation. The plan would be for the patient to be admitted to rehab. This can be done from home. He was screened while here in the hospital. He is felt safe to go home and then once a bed is available in the rehabilitation center, then the plan would be to admit him directly to inpatient rehab. Job ID: [id number]
== END 2018-12-21 18:00 | disposition home or self-care (01) ==
LOC: ERS 15:53 → 2SE 20:47
PROVIDERS: ADMIT Internal Medicine; ATTEND Internal Medicine
DX: M51.16 Intervertebral disc disorders with radiculopathy, lumbar region (principal); M48.061 Spinal stenosis, lumbar region without neurogenic claudication; R41.0 Disorientation, unspecified; F31.9 Bipolar disorder, unspecified; F20.9 Schizophrenia, unspecified; G40.909 Epilepsy, unspecified, not intractable, without status epilepticus; E78.5 Hyperlipidemia, unspecified; I10 Essential (primary) hypertension; K21.9 Gastro-esophageal reflux disease without esophagitis; G89.29 Other chronic pain; M79.604 Pain in right leg; F17.290 Nicotine dependence, other tobacco product, uncomplicated; F41.9 Anxiety disorder, unspecified; I25.10 Atherosclerotic heart disease of native coronary artery without angina pectoris; E11.40 Type 2 diabetes mellitus with diabetic neuropathy, unspecified; H61.20 Impacted cerumen, unspecified ear; Z86.711 Personal history of pulmonary embolism; Z86.718 Personal history of other venous thrombosis and embolism; Z79.01 Long term (current) use of anticoagulants; Z79.82 Long term (current) use of aspirin; Z79.84 Long term (current) use of oral hypoglycemic drugs; Z79.899 Other long term (current) drug therapy; Z98.1 Arthrodesis status; Z98.890 Other specified postprocedural states
CPT/HCPCS: 69209; 70450; 70551; 71045; 72148; 73564; 80053; 80061; 80175; 80185; 81003; 82962 ×2; 84484; 85025; 93005; 93306; 96374; 96376; 97116 ×2; 97139; 97530; 99285; G0378 ×4; 36415; 36416; J2060

== ENCOUNTER 2018-12-24 16:24 | Emergency (ER) | payer MEDICARE ==
--- NOTE | 2018-12-24 17:57 | CT ---
CT BRAIN WITHOUT CONTRAST: History: Fall, injury, patient on blood thinners. Hit head, no loss of consciousness. FINDINGS: Comparison is made with exam of 12-19-18. No evidence of acute infarct, hemorrhage, midline shift, or abnormal extraaxial fluid collections are seen. The ventricular size is appropriate and the basilar cisterns patent. The bony calvarium is int act. The visualized paranasal sinuses and mastoid air cells are well aerated. IMPRESSION: No CT evidence of acute intracranial process. POS: [facility]
== END 2018-12-24 18:06 | disposition home or self-care (01) ==
LOC: ERS 16:24
DX: S00.03XA Contusion of scalp, initial encounter (principal); Z86.718 Personal history of other venous thrombosis and embolism; Z86.711 Personal history of pulmonary embolism; Z87.01 Personal history of pneumonia (recurrent); E66.9 Obesity, unspecified; E78.5 Hyperlipidemia, unspecified; E78.00 Pure hypercholesterolemia, unspecified; E11.9 Type 2 diabetes mellitus without complications; I10 Essential (primary) hypertension; F41.9 Anxiety disorder, unspecified; F31.9 Bipolar disorder, unspecified; F17.220 Nicotine dependence, chewing tobacco, uncomplicated; Z79.84 Long term (current) use of oral hypoglycemic drugs; Z79.82 Long term (current) use of aspirin; Z79.899 Other long term (current) drug therapy; Z79.01 Long term (current) use of anticoagulants; W07.XXXA Fall from chair, initial encounter
CPT/HCPCS: 70450

== ENCOUNTER 2019-02-20 20:24 | Inpatient (IN) | payer MEDICARE ==
[2019-02-20] MEDS ORDERED: Propofol 1,000 MG/100 ML VIAL IV ONE (20:28)
[2019-02-20 20:58] LABS: #Eosinphils 0.1 thou/uL (0.0-0.7); #Lymphocytes 3.4 thou/uL (1.20-3.40); #Monocytes 0.9 thou/uL (0.11-0.59); %Basophils 0.3 % (0.0-1.0); %Lymphocytes 32.5 % (21.0-51.0); %Monocytes 8.4 % (0.0-10.0); %Neutrophils 57.8 % (42.0-75.0); Hemoglobin 12.5 g/dL (14.0-18.0); Mean Corpuscular HGB CONC 34.5 g/dL (32.0-36.0); Mean Corpuscular Hemoglobin 30.6 pg (27.0-31.0); Mean Corpuscular Volume 88.6 fL (78.0-98.0); Mean Platelet Volume 8.4 fL (7.4-10.4); Platelet Count 166 thou/uL (130-400); RBC Distribution Width 12.5 % (11.5-14.5); Red Blood Cell (RBC) Count 4.08 mill/uL (4.70-6.10); White Blood Cell (WBC) Count 10.4 thou/uL (4.8-10.8)
--- NOTE | 2019-02-20 21:03 | RAD ---
Chest AP view INDICATION: History of seizures and intubation COMPARISON: December 19, 2018 FINDINGS: Lungs:No airspace consolidation is evident. There is interstitial and airspace opacity in the right u pper lobe. Cardiac silhouette:There is mild cardiomegaly with mild pulmonary vascular congestion. Pulmonary vasculature:Mild pulmonary vascular congestion. Pleural spaces:No pleural effusion or pneumothorax is demonstrated. Upper abdomen:No abnormality seen. Osseous structures: There is postsurgical change of a left distal clavicle excision. Additional findings:ET tube tip is seen at the level of the thoracic inlet. Gastric catheter projects to the level of the region of the gastric fundus. There is an intraosseous catheter within the left proximal humerus. IMPRESSION: Cardiomegaly with mild pulmonary vascular congestion may reflect mild CHF. There is inter stitial and airspace opacity in the right upper lobe which is nonspecific and may reflect airspace edema or pneumonia. Continued radiographic follow-up is recommended.
[2019-02-20 21:07] LABS: ALT (SGPT) 15 U/L (8-55); AST (SGOT) 14 U/L (5-34); Albumin 3.4 g/dL (3.4-4.8); Alkaline Phosphatase 94 U/L (40-110); Anion Gap 12 mmol/L (10-20); BUN (Urea Nitrogen) 10 mg/dL (8.4-25.7); Bilirubin, Total 0.3 mg/dL (0.2-1.2); Calc. Creatinine Clearance 0 mL/min (70-130); Calcium 8.5 mg/dL (7.8-10.44); Carbon Dioxide 20 mmol/L (23-31); Chloride 111 mmol/L (98-107); Estimated GFR-MDRD Greater than 90; Globulin 2.3 g/dL (2.4-3.5); Glucose 185 mg/dL (80-115); Potassium 3.4 mmol/L (3.5-5.1); Protein, Total 5.7 g/dL (5.8-8.1); Sodium 140 mmol/L (136-145)
--- NOTE | 2019-02-20 21:10 | CT ---
CT Brain WO Con: 02/20/2019 12:00 AM CLINICAL HISTORY: History of seizures. IMAGING TECHNIQUE: Multiple CT images were obtained of the brain without IV contrast. COMPARISON: December 24, 2018 CT examination of the brain FINDINGS: Brain: No acute infarct or hemorrhage is evident. No midline shift. Ventricles: Normal. No hydrocephalus.. Skull: Intact.. Visualized Paranasal sinuses: Clear.. Mastoid air cells:Clear. Extracranial soft tissues:There is gas within the senior principal architect space bilaterally which may be related t o mucosal laceration from intubation. There is layered fluid within the nasopharynx. IMPRESSION: 1. No acute intracranial abnormality. 2. Gas within the senior principal architect space bilaterally may related mucosal laceration foramina intubation. Th ere is layered fluid within the nasopharynx.
[2019-02-20 21:11] LABS: Bilirubin Negative (Negative); Blood, Urine Negative (Negative); Glucose, Urine (Dipstick) Negative (Negative); Leukocyte Negative (Negative); Nitrite Negative (Negative); Protein, Urine (Dipstick) 100 mg/dL (Neg-Trace); Urobilinogen 0.2 mg/dL (Less than 2)
[2019-02-20 21:15] LABS: Bacteria/HPF None Seen HPF (None Seen); RBC/HPF 0-3 HPF (0-3); Squamous Epithelial 0-3 HPF (0-3); WBC/HPF 0-3 HPF (0-3)
[2019-02-20 21:16] LABS: Clarity Clear (Clear)
[2019-02-20 21:16] LABS: Actual Bicarbonate (HCO3a) 19.4 mEq/L (22-28); Analyzer IN Cardio ER; Base Excess (BEa) -4.4 mEq/L (-2.0 to +3.0); CO2 Tension 31.9 mmHg (35.0-45.0); Calcium, Ionized 1.18 mmol/L (1.12-1.30); Carboxyhemoglobin (COHb) 0.3 gm% (0.0-3.0); Hemoglobin (Hb) 12.9 g/dL (14.0-18.0); Potassium - ABG Lab 3.32 mmol/L (3.70-5.30)
[2019-02-20 21:20] LABS: Puncture Site LRA
[2019-02-20 21:21] LABS: ALV-art Gradient 50.625 (0-20)
[2019-02-20] MEDS ORDERED: fentaNYL Citrate/PF 2,000 MCG in Sodium Chloride 0.9% 60 ML IV SCH (22:00)
[2019-02-20] MEDS ORDERED: Morphine 2 MG/ML SYRINGE SLOW IVP PRN (22:00)
[2019-02-20] MEDS ORDERED: Fentanyl BOLUS 250 ML IVPB PRN (22:00)
[2019-02-20] MEDS ORDERED: DISCONTINUE PREVIOUS NARCOTIC PAIN MEDICATIONS AND BENZODIAZEPINES FS SCH (22:00)
[2019-02-20] MEDS ORDERED: Propofol BOLUS 1,000 MG/100 ML VIAL IV PRN (22:00)
[2019-02-20] MEDS ORDERED: Lorazepam 2 MG/ML VIAL SLOW IVP PRN (22:00)
[2019-02-20] MEDS ORDERED: Ondansetron ODT 4 MG TAB SL PRN (22:03)
[2019-02-20] MEDS ORDERED: Ondansetron PF 4 MG/2 ML Vial IVP PRN (22:03)
[2019-02-20] MEDS ORDERED: Sodium Chloride 0.9% 1,000 ML IV SCH (22:03)
[2019-02-20 22:19] VITALS: BMI 29.3
[2019-02-20] MEDS ORDERED: Labetalol HCl 100 MG/20 ML VIAL SLOW IVP PRN (22:32)
[2019-02-20] MEDS ORDERED: Ventilator Sedation Protocol 1 EACH FS ONE (22:32)
[2019-02-20] MEDS ORDERED: hydrALAZINE 20 MG/ML VIAL SLOW IVP PRN (22:32)
[2019-02-20] MEDS ORDERED: CCU Electrolyte Replacement 1 EACH FS ONE (22:32)
[2019-02-20] MEDS ORDERED: HumaLOG 300 UNITS/3 ML VIAL SC PRN ×2 (22:35)
[2019-02-20] MEDS ORDERED: Dextrose 5% in Water 1,000 ML IV PRN (22:35)
[2019-02-20] MEDS ORDERED: Dextrose 50% Abboject 50 ML SYRINGE SLOW IVP PRN (22:35)
[2019-02-20] MEDS ORDERED: Potassium Phosphate 9 MMOL in Sodium Chloride 0.9% 100 ML IVPB PRN (22:36)
[2019-02-20] MEDS ORDERED: PHOS-NAK 1 PKT PACK PO PRN ×2 (22:36)
[2019-02-20] MEDS ORDERED: Potassium Phosphate 15 MMOL in Sodium Chloride 0.9% 250 ML 250 ML IV PRN (22:36)
[2019-02-20] MEDS ORDERED: CCU ELECTROLYTE REPLACEMENT PROTOCOL FS PRN (22:36)
[2019-02-20] MEDS ORDERED: Magnesium 2 GM/50 ML 2 GM in Premix Bag 1 BAG IVPB PRN (22:36)
[2019-02-20] MEDS ORDERED: Potassium Chloride 20 MEQ TAB PO PRN (22:36)
[2019-02-20] MEDS ORDERED: Potassium Chloride 40 MEQ in Premix Bag 1 BAG IVPB PRN (22:36)
[2019-02-20] MEDS ORDERED: Potassium Phosphate 12 MMOL in Sodium Chloride 0.9% 250 ML 250 ML IV PRN (22:36)
[2019-02-20] MEDS ORDERED: Potassium Chloride 40 MEQ in Sodium Chloride 0.9% 250 ML 250 ML IVPB PRN (22:36)
[2019-02-20] MEDS ORDERED: Magnesium Oxide 400 MG TAB PO PRN ×2 (22:36)
[2019-02-20] MEDS ORDERED: levETIRAcetam In NaCl (Iso-Os) 1,000 MG in Premix Bag 1 BAG IVPB SCH (22:45)
[2019-02-20] MEDS: Sodium Chloride 0.9% 1,000 ML IV SCH (23:02)
[2019-02-21] MEDS: Propofol 1,000 MG/100 ML VIAL IV PRN ×2 (01:16→06:02)
--- NOTE | 2019-02-21 01:46 | HP ---
PRIMARY CARE PHYSICIAN: Dr. Kaminski. CHIEF COMPLAINT: Seizures and altered mental status. HISTORY OF PRESENT ILLNESS: This is a 59-year-old male, who presents to [facility] Emergency Department postictal after sustaining a seizure at home. EMS personnel were notified and the patient was noted with seizure activity with vomitus after seizing just prior to EMS arrival at the home. The patient was altered and combative en route, requiring sedation and protection of the airway with intubation. The history was obtained after discussions with the at the bedside as well as review of electronic medical record and discussions with the ER attending. The patient currently intubated and unable to provide a history. The patient apparently has had recurrent and chronic pelvic and testicular pain, followed by urologist in the [place] area, completing a 3-week course of doxycycline with multiple imaging studies of his testicle without specific identifiable cause. The patient was diagnosed with prostatitis and epididymitis and required increasing pain medication for relief. The reports this was complicating his overall health and likely contributed to his presentation. The reports the patient had a seizure and was found on the floor with tonic colonic movement. The patient does take chronic Dilantin and has been compliant with the medication per 's report. No other new medication reported, exposure history, or recent travel. The patient is accompanied by his and children in the CCU. In the emergency room, the patient underwent general evaluation with current intubation and mechanical ventilation, receiving a fentanyl, lorazepam, and IV fluids. PAST MEDICAL HISTORY: 1. Epilepsy. 2. Hyperlipidemia. 3. Diabetes mellitus type 2. 4. Chronic abdominal/pelvic and testicular pain. 5. Schizophrenia. 6. Bipolar disorder with anxiety. 7. Depression. 8. History of marijuana abuse. 9. Smokeless tobacco use. 10. History of DVT/pulmonary embolus, on chronic Eliquis. PAST SURGICAL HISTORY: 1. Status post right testicular removal. 2. Status post hernia repair x2. 3. Status post right knee surgery x6. 4. Status post transurethral resection of the prostate. 5. Status post lumbar spine fusion. CURRENT MEDICATIONS: 1. Eliquis 5 mg p.o. b.i.d. 2. Aspirin 81 mg p.o. daily. 3. Lipitor 10 mg p.o. at bedtime. 4. Clonazepam 1 mg p.o. daily. 5. Gabapentin 300 mg p.o. t.i.d.. 6. Glipizide 10 mg p.o. b.i.d. 7. Lamictal 100 mg p.o. daily. 8. Lisinopril 10 mg p.o. daily. 9. Metformin 1000 mg p.o. b.i.d. 10. Phenytoin 400 mg p.o. at bedtime. 11. Januvia 100 mg p.o. daily. ALLERGIES: TO MORPHINE SULFATE. FAMILY HISTORY: Positive for myocardial infarction in his father, who at the age of 50. SOCIAL HISTORY: The patient is , accompanied by his and 3 grown children. No current alcohol. Remote history of marijuana abuse. Smokeless tobacco use. REVIEW OF SYSTEMS: Unobtainable as the patient is currently on mechanical ventilation. PHYSICAL EXAMINATION: VITAL SIGNS: On admission, blood pressure 132/89, pulse 87, respiratory rate 18, temperature 97.2 degrees Fahrenheit, O2 saturation 100% on FiO2, 30% by mechanical ventilation. GENERAL APPEARANCE: This is a 59-year-old male, agitated, on current mechanical ventilation and nonverbal. HEENT: Pupils are equal, round, reactive to light and accommodation. Extraocular muscles intact. No scleral icterus. No conjunctival injection. Nares patent. OP with ET tube and NG tube in place. NECK: Supple. No cervical adenopathy. No thyromegaly. No carotid bruits. No JVD appreciated. Cervical spine with full active and passive range of motion. No meningeal signs noted. CHEST: Lungs are clear to auscultation bilaterally. CARDIOVASCULAR: S1, S2 without noted murmur, rub, or gallop. ABDOMEN: Rounded, soft, nontender, and nondistended. Bowel sounds are positive in all 4 quadrants. No palpable mass. No rebound or guarding appreciated. EXTREMITIES: Warm and dry with fair turgor. No clubbing, cyanosis, or asymmetric edema appreciated. Pulses palpable distally at the dorsalis pedis, posterior tibial, and popliteal arteries bilaterally. Capillary refill less than 2 seconds. NEUROLOGIC: The patient is sedated on Diprivan, but will open eyes to name and direct engagement. Nods head to questioning and turns head on command. PERTINENT LABORATORY DATA AND X-RAY FINDINGS: Sodium 140, potassium 3.4, chloride 111, CO2 of 20, BUN 10, creatinine 0.75, glucose 185, calcium 8.5. LFTs within normal limits. CBC showed a white blood cell count of 10.4, hemoglobin 12.5, hematocrit 36, platelet count 166 with normal differential. ABG dated 02/20/2019, at 2115, showed a pH of 7.4, pCO2 of 32, PO2 of 266, bicarb 19.4, O2 saturation 99% on 50% FiO2. Urinalysis positive for protein. Phenytoin level 10.6 on 02/20/2019. CT of the brain without contrast dated 02/20/2019 showed no acute intracranial process. Portable chest x-ray dated 02/20/2019 showed ET tube in appropriate position. Pulmonary vascular prominence noted. Mild interstitial airspace opacity in the right upper lobe. Telemetry monitoring shows a sinus mechanism with heart rates in the 80s to 90s. ASSESSMENT/PLAN: 1. Status epilepticus. The patient will be admitted to the Critical Care Unit. We will initiate Keppra 1000 mg IV b.i.d. with first dose now. Consult Neurology Service in the a.m. for any further recommendations and consideration for EEG evaluation. Rule out underlying or occult infectious process to presentation. Current Dilantin level therapeutic. Continue general seizure precautions with addition of lorazepam 2 mg IV q.hour p.r.n. seizure activity. 2. Acute hypoxic respiratory failure. We will continue mechanical ventilation with SIMV. We will titrate to clinical response. Repeat portable chest x-ray and ABG in the a.m. We will consult Pulmonology Service in the a.m. Likely patient able to extubate in the next 24 hours. 3. Hypertension. We will hold oral antihypertensives and provide hydralazine and labetalol IV p.r.n. 4. Diabetes mellitus type 2. Insulin sliding scale for reflexive coverage. Serial Accu-Cheks. Hold oral hypoglycemics until tolerating p.o. intake. 5. Chronic pain syndrome. We will continue fentanyl for sedation and pain control IV. Continue Diprivan intravenously for sedation and titrate to clinical response. 6. Prophylaxis. SCDs while in bed. Pepcid 20 mg IV q.12 hours. 7. Code status is full. Surrogate medical decision maker is the patient's spouse. Total critical care time is 45 minutes. Job ID: [id number]
[2019-02-21 05:28] LABS: Band 4 % (5-11); Hemoglobin 12.9 g/dL (14.0-18.0); Lymphocytes 17 % (21-51); MDiff Complete? YES; Mean Corpuscular HGB CONC 34.5 g/dL (32.0-36.0); Mean Corpuscular Hemoglobin 30.6 pg (27.0-31.0); Mean Corpuscular Volume 88.6 fL (78.0-98.0); Mean Platelet Volume 8.6 fL (7.4-10.4); Monocytes 8 % (0-10); Neutrophil 68 % (42-75); Platelet Count 185 thou/uL (130-400); RBC Distribution Width 12.4 % (11.5-14.5); Reactive Lymphocytes 3 % (0-10); Red Blood Cell (RBC) Count 4.21 mill/uL (4.70-6.10); White Blood Cell (WBC) Count 10.3 thou/uL (4.8-10.8)
[2019-02-21 05:37] LABS: ALT (SGPT) 16 U/L (8-55); AST (SGOT) 22 U/L (5-34); Albumin 3.6 g/dL (3.4-4.8); Alkaline Phosphatase 120 U/L (40-110); Anion Gap 13 mmol/L (10-20); BUN (Urea Nitrogen) 9 mg/dL (8.4-25.7); Bilirubin, Total 0.3 mg/dL (0.2-1.2); Calc. Creatinine Clearance 135 mL/min (70-130); Calcium 8.7 mg/dL (7.8-10.44); Carbon Dioxide 22 mmol/L (23-31); Chloride 110 mmol/L (98-107); Estimated GFR-MDRD Greater than 90; Globulin 2.7 g/dL (2.4-3.5); Glucose 162 mg/dL (80-115); Potassium 4.1 mmol/L (3.5-5.1); Protein, Total 6.3 g/dL (5.8-8.1); Sodium 141 mmol/L (136-145)
[2019-02-21] MEDS: Sodium Chloride 0.9% 1,000 ML IV SCH ×2 (08:43→18:48)
[2019-02-21] MEDS ORDERED: DC Sedation Protocol FS ONE (08:52)
[2019-02-21] MEDS ORDERED: FLU VACC QS2019-20(6MOS UP)/PF 60 MCG/0.5 ML SYRINGE IM ONE (09:00)
[2019-02-21] MEDS ORDERED: Famotidine/PF 20 mg/2ml Vial SLOW IVP SCH (09:00)
--- NOTE | 2019-02-21 09:16 | RAD ---
PORTABLE CHEST: HISTORY: Respiratory failure. CCU followup. COMPARISON: 02/20/2019 FINDINGS: ET tube and NG tube are noted in place. The lung chavis appear well aerated and clear. The heart and mediastinum are unremarkable. The focal infiltrate in the right upper lung, noted on yesterday's exam, is not apparent on the curre nt study. POS: OFF
--- NOTE | 2019-02-21 09:41 | CON ---
DATE OF CONSULTATION: 02/21/2019 REASON FOR CONSULTATION: Respiratory failure related to the patient being intubated after seizure episode. HISTORY OF PRESENT ILLNESS: The patient is a 59-year-old male, who presented to the emergency room postictal after seizure. He was intubated for airway protection this morning. He is awake, alert, following commands. PAST MEDICAL HISTORY: 1. Seizure disorder. 2. Hyperlipidemia. 3. Diabetes mellitus, type 2. 4. Testicular pain. 5. Schizophrenia. 6. Bipolar disorder. 7. Depression. 8. Marijuana abuse. 9. DVT/PE, requiring chronic Eliquis. PAST SURGICAL HISTORY: 1. Right testicular removal. 2. Hernia repair. 3. Right knee surgery. 4. Transurethral resection of prostate. 5. Lumbar spine fusion. MEDICATIONS: 1. Eliquis. 2. Aspirin. 3. Lipitor. 4. Clonazepam. 5. Gabapentin. 6. Glipizide. 7. Lamictal. 8. Lisinopril. 9. Metformin. 10. Phenytoin. 11. Januvia. ALLERGIES: MORPHINE. FAMILY MEDICAL HISTORY: Remarkable for coronary artery disease. SOCIAL HISTORY: Has a remote history of marijuana use. Uses smokeless tobacco. No alcohol use. PHYSICAL EXAMINATION: VITAL SIGNS: Temperature 99.7, pulse 100, blood pressure 130/73, and O2 saturation 96%. GENERAL: He was intubated, but awake when I saw him. HEENT: Unremarkable. NECK: No adenopathy or JVD. LUNGS: Clear. CARDIAC: S1 and S2. Slightly tachycardic. ABDOMEN: Soft and nontender. EXTREMITIES: No clubbing, cyanosis, or edema. IMAGING DATA: Chest x-ray shows ET tube without evidence of mass, effusion, or infiltrate. LABORATORY DATA: Sodium 141, potassium 4.1, chloride 110, CO2 of 22, BUN 9, creatinine 0.8, and glucose 162. PH of 7.40, pCO2 of 31, and pO2 of 266. White blood cell count 10.3, hematocrit 37.3, and platelet count 185. ASSESSMENT: 1. Post seizure, clinically stable. 2. Respiratory failure, requiring mechanical ventilation. 3. Possible aspiration of vomitus. PLAN: 1. Extubate. 2. Can transfer to the floor. 3. Continue his anticoagulant. 4. Further care per hospitalist team. Pulmonary will be available as needed. Job ID: [id number]
[2019-02-21] MEDS: Ondansetron PF 4 MG/2 ML Vial IVP PRN (10:43)
[2019-02-21] MEDS ORDERED: Fentanyl 100 MCG/2 ML VIAL SLOW IVP SCH (11:30)
[2019-02-21] MEDS ORDERED: Lorazepam 2 MG/ML VIAL SLOW IVP SCH (11:30)
--- NOTE | 2019-02-21 11:38 | PDOC.HOSPP ---
- Subjective Encounter Date: 02/21/19 Encounter Time: 11:30 Subjective: Patient reports severe testicular pain. He states that he has had ultrasounds that haven't shown anything significant. Has already taken a course of antibiotics for prostatitis with no relief. States that he went to a urologist in [place] who offered testicular removal but he hasn't scheduled it yet. He has anaphylaxis to morphine, tylenol makes him agitated, motrin sometimes helps at home. Toradol no relief He states " my pain is so bad I would take a gun and shoot my testicle right now if I could. In fact If they could take me to surgery today that would be great" Patient wants something strong for pain to help him sleep, states he hasn't slept in four days because of the pain. He also wants something for relief Patient lives in [facility] is closer to him but was visiting his daughter who lives in [place] [facility]. Ended up in the hospital due to seizure, is now extubated. Patient states the pain is triggering his seizure. also states patient's legs are numb starting today. He is refusing to lift up his legs since he is afraid it will make his testicular pain worst. - Objective Vital Signs & Weight: Vital Signs (12 hours) Temp Pulse Resp BP Pulse Ox 02/21/19 08:00 10 L 02/21/19 07:00 99.7 F H 02/21/19 06:58 99 122/74 02/21/19 06:00 22 H 02/21/19 04:00 98.1 F 12 100 02/21/19 02:00 17 02/21/19 00:00 29 H Weight Weight 216 lb 7.903 oz Most Recent Monitor Data Heart Rate from ECG 110 NIBP 155/83 NIBP BP-Mean 107 Respiration from ECG 22 SpO2 91 I&O: 02/20/19 02/21/19 02/22/19 06:59 06:59 06:59 Intake Total 100 253 Output Total 902 1075 Balance -805 -822 Result Diagrams: 02/21/19 04:52 02/21/19 04:52 Additional Labs: Accuchecks 02/20/19 23:58 POC Glucose 151 H Hospitalist ROS - Review of Systems Constitutional: denies: fever, chills - Medication Medications: Active Medications Generic Name Dose Route Start Last Admin Trade Name Freq PRN Reason Stop Dose Admin Fentanyl 50 mcg 02/21/19 11:30 02/21/19 11:30 Sublimaze SLOW IVP 02/21/19 13:30 50 mcg NOW MERCED Administration Sodium Chloride 1,000 mls @ 100 mls/hr 02/20/19 22:32 02/21/19 08:43 Normal Saline 0.9% IV 1,000 mls .Q10H MERCED Administration Ondansetron HCl 4 mg 02/20/19 22:32 02/21/19 10:43 Zofran IVP 4 mg Q6H PRN Administration Nausea/Vomiting - Exam General - other findings: Patient very restless, face is flushed. Tachycardic Eye: PERRL ENT: normocephalic atraumatic Neck: no JVD Heart: RRR, no murmur, no gallops, no rubs Respiratory: CTAB, no wheezes Gastrointestinal - other findings: deferred due to patient not wanting to be touched Extremities: no edema Skin - other findings: Scrotal swelling. Left testicle swollen and red. Refused palpation Hosp A/P - Plan CT head 02/21/2019: no acute disease Chest X ray 02/21/2019: no acute disease Scrotal ultrasound 02/11/2018: normal blood flow, no torsion. Mildly enlarged left epidydymis without increased vascularity , small left hydrocele This is 59 year old male with history of seizures, diabetes, hypertension, hyperlipidemia who presented with seizure at home, was intubated, s/p extubation Status epilepticus - s/p extubation - on keppra IV bid - at home takes dilantin and lamictal - neurology consulted for further recommendations Acute on chronic testicular pain - patient has been treated for epidydmitis in the past recently with antibiotics. Has had right testicle removed, wants left testicle to be removed JERAMY, possibly today even. Patient is requesting urology consult stat - will try one time dose of fentanyl IV, patient refuses tylenol, allergic to morphine, can't give dilaudid on the floor - no leukocytosis or fever to suggest infection - has had ultrasound done last week at [place] which was unremarkable, will try to obtain records DVT/PE -on eliquis, may need to hold this for any surgery Diabetes type II - insulin sliding scale - hold oral meds Hyperlipidemia - continue statin Anemia - Hb 12, check B12, folate, iron levels Code status: full code
--- NOTE | 2019-02-21 11:52 | CON ---
DATE OF TELEMEDICINE CONSULTATION: 02/21/2019 CHIEF COMPLAINT: Seizures. HISTORY OF PRESENT ILLNESS: The patient has not been sleeping for several days. He has severe testicle pain and he is seeing a urologist. He has been diagnosed with prostatitis and epididymitis and he has been on doxycycline for 3 weeks. He has history of seizures and he was driving back in his son's car. He was in the back of the car. He went to see a urologist in [place], [place]. He was in the backseat and he continued to have seizures and son did not notice. By the time, they came back, joined them on the way and and son could not arouse the patient. He remained confused for 30 minutes to an hour and he continued to have seizures even en route with the EMS. He was intubated yesterday and he is now extubated. He has received IV Keppra. The patient's is also a nurse. She reports that he normally does not have these type of seizures. He has brief seizures and has mild confusion postictally and drinks lots of water postictally. The patient has been on Dilantin at bedtime for seizure control. He failed Keppra in the past. He is also on Lamictal and gabapentin for other medical issues such as bipolar disorder and neuropathy. The patient is generally well controlled with his seizures, but recently due to medical issues, he has been having significant problems with his testicular pain and epididymitis. 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 PAST SURGICAL HISTORY: Status post right testicular removal, status post hernia repair, right knee surgery and prostatectomy in the past and lumbar spine surgery in the past. MEDICATIONS: He takes Eliquis, aspirin, Lipitor, clonazepam, gabapentin, glipizide, Lamictal, lisinopril, metformin, phenytoin and Januvia daily. ALLERGIES: HE HAS ALLERGIES TO MORPHINE. FAMILY HISTORY: The patient's mother from liver cancer at 73. Father at 50 from myocardial infarction. He has no brothers. He has 1 sister who is 65 and has colon cancer. The patient has 3 children, 2 boys 40 and 32 and a girl 37. REVIEW OF SYSTEMS: PULMONARY: Negative for shortness of breath or cough. GI: Negative for nausea, vomiting or diarrhea. NEUROLOGICAL: Positive for seizures, multiple seizures yesterday per . DERMATOLOGICAL: Negative for rash. GENITOURINARY: Testicular pain and epididymitis recently. HEMATOLOGICAL: Negative for bleeding diathesis. ALLERGIES: He is allergic to morphine sulfate. LABORATORY DATA: His current workup; laboratory results, white count 10.3, hemoglobin 12.9, hematocrit 37.3, platelet count 185. Chemistry; sodium 141, potassium 4.1, chloride 110, bicarb 22, BUN 9, creatinine 0.80, glucose 162. Liver functions within normal limits except for alkaline phosphatase, which was 120, prolactin 42.49. His CT scan was negative for any acute intracranial event and MRI is pending. I did not see a recent MRI on this patient. I reviewed the brain MRI from November, which showed no evidence of any acute intracranial process and his CT of the head from 02/20/2019 showed gas within aircraft fueler space bilaterally related to mucosal laceration and foramina intubation. There is layered fluid within the nasopharynx. PHYSICAL EXAMINATION: VITAL SIGNS: Blood pressure 155/83, pulse is 110, and he is breathing on his own now. He has been extubated. His temperature 99.7. GENERAL APPEARANCE: Well-built, well-nourished man, who talks about testicular pain and is very bothered by it. CHEST: Clear, vesicular breathing. CARDIOVASCULAR: S1, S2 heard. No murmurs. ABDOMEN: Soft and nontender. No organomegaly was noted. NEUROLOGICAL: Higher intellectual functions. Normal orientation to time, place , and person. Appropriate conversation. Cranial nerve examination, normal extraocular movements. Tongue midline. No atrophy noted. No facial asymmetry and normal elevation of palate. Pupils are 2 mm, reactive to light bilaterally and normal hearing bilaterally. Motor examination was somewhat limited because he complained of left shoulder pain and could not perform upper extremity full exam on the left side and he was also limited in the lower extremities due to pain in his testicles and could not move his legs very well for a strength exam, but overall seems to have preserved movement in all extremities. Sensation is normal. Deep tendon reflexes were 1+. IMPRESSION: The patient is a 59-year-old man with longstanding history of seizures following prior head injuries. He is maintained on 400 mg of Dilantin per day and his Dilantin level is at 10.6, which is on the lower end and he has been having testicular pain and has been on antibiotics for 3 weeks. This could be a result of poor absorption of Dilantin, both due to antibiotics and presence of Eliquis in his system. He seems to have responded to Keppra, now that his seizures have stopped. TREATMENT RECOMMENDATIONS: Please keep him on Keppra 1000 mg b.i.d. along with Dilantin. If he remains stable, he can be maintained on this dual therapy and return to Dr. Land as outpatient. We will see him if he has any seizure recurrence. Job ID: [id number] [facility]
[2019-02-21 12:49] LABS: Iron 24 ug/dL (65-175); Iron Binding Capacity, Total 184 mcg/dL (261-462)
[2019-02-21 13:15] LABS: Ferritin 294.11 ng/mL (22-322)
[2019-02-21] MEDS: Gabapentin 300 MG CAP PO SCH ×3 (13:17→21:03)
[2019-02-21] MEDS: Alogliptin 25 MG TAB PO SCH (13:17)
[2019-02-21] MEDS: Aspirin Chewable 81 MG TAB PO SCH (13:17)
[2019-02-21] MEDS: Apixaban 5 MG TAB PO SCH ×2 (13:17→21:04)
[2019-02-21] MEDS: glipiZIDE 5 MG TAB PO SCH ×2 (13:17→21:04)
[2019-02-21] MEDS: metFORMIN 500 MG TAB PO SCH ×2 (13:17→21:05)
[2019-02-21] MEDS: Lisinopril 10 MG TAB PO SCH (13:18)
[2019-02-21] MEDS: levETIRAcetam In NaCl (Iso-Os) 1,000 MG in Premix Bag 1 BAG IVPB SCH ×2 (13:18→23:35)
[2019-02-21] MEDS: lamoTRIgine 100 MG TAB PO SCH (13:18)
[2019-02-21] MEDS: Famotidine 20 MG TAB PO SCH ×2 (13:18→21:05)
[2019-02-21] MEDS: Acetaminophen 325 MG TAB PO PRN ×2 (13:19→21:47)
[2019-02-21] MEDS ORDERED: Ketorolac Tromethamine 30 MG/ML VIAL IVP SCH (14:45)
[2019-02-21] MEDS ORDERED: Fentanyl 100 MCG/2 ML VIAL SLOW IVP PRN (16:23)
[2019-02-21] MEDS: oxyCODONE 5 MG TAB PO PRN ×2 (16:40→21:00)
[2019-02-21] MEDS ORDERED: Naproxen 500 MG TAB PO SCH (21:00)
[2019-02-21] MEDS: Atorvastatin Calcium 10 MG TAB PO SCH (21:04)
[2019-02-21] MEDS ORDERED: Lorazepam 0.5 MG TAB PO SCH (21:30)
[2019-02-21] MEDS: Ketorolac Tromethamine 30 MG/ML VIAL IVP PRN (21:47)
[2019-02-22] MEDS ORDERED: Lorazepam 2 MG/ML VIAL SLOW IVP PRN (00:21)
[2019-02-22] MEDS ORDERED: Fentanyl 100 MCG/2 ML VIAL SLOW IVP PRN (00:22)
--- NOTE | 2019-02-22 00:36 | CON ---
DATE OF CONSULTATION: 02/22/2019 REASON FOR CONSULTATION: Severe testicle pain. REQUESTING PHYSICIAN: Hospitalist Service. HISTORY OF PRESENT ILLNESS: Mr. Gupta is a 59-year-old male who presented to [facility] in [place] via EMS and intubated and sedated. The patient evidently had seizure-like activity and was found unconscious and was intubated at the scene and brought in. He has an extensive past urologic history. He is most recently a patient of Dr. Finn. He has history of chronic testicle pain. He has a solitary left testicle. The patient has been seen by multiple urologists. He also has a urologist in [place], [place], who has done a workup of this and per his report, had scheduled him for an orchiectomy given his chronic pain. The patient stated that yesterday his pain was so severe that he began having seizures and at this point, EMS was called, he was intubated at the scene and brought him in. He was admitted to the ICU and subsequently extubated. He has had a neurologic evaluation as well. The patient has followed Dr. Finn evidently earlier this month. There is no record of this within [facility], although it appears that some orders were placed and encounters were performed, but there were no notes associated with this. The patient states he had a scrotal ultrasound performed at that time, he also had one performed at [place] recently. The patient has been resistant to any type of exam thus far of his genitals. He refused a scrotal ultrasound. Currently, the patient states that he is in absolute severe pain at a 15/10. He states that he cannot sleep. The history is somewhat disorganized. He also reports a history of what sounds to be a possible prostatic abscess last year. The patient has history of chronic deep venous thrombosis with resultant pulmonary emboli. He is currently on Eliquis. The patient demands that an orchiectomy be performed to control his pain and he expresses frustration with various providers he has seen regarding this and the fact that he has had no relief. Evidently, he was referred to Pain Management by Dr. Finn; however, he was never evaluated by them. REVIEW OF SYSTEMS: Full 12-point review of systems performed and is negative other than that mentioned in HPI. PAST MEDICAL HISTORY: Chronic DVTs, pulmonary emboli, pneumonia, hyperlipidemia, type 2 diabetes, hypertension, seizures, chronic pain. PAST SURGICAL HISTORY: Right orchiectomy, inguinal hernia repair, multiple orthopedic surgeries, TURP, L3-L4 fusion. PSYCHIATRIC HISTORY: Anxiety, bipolar disorder, depression, pseudoseizures, schizophrenia. SOCIAL HISTORY: No alcohol. He is a former drug user. The patient does not smoke, but he chews tobacco. ALLERGIES: MORPHINE, ANAPHYLAXIS. MEDICATIONS: 1. Metformin. 2. Phenytoin. 3. Atorvastatin. 4. Januvia. 5. Quetiapine. 6. Glipizide. 7. Tamsulosin. 8. Lamotrigine. 9. Aspirin. 10. Ranitidine. 11. Eliquis. 12. Lisinopril. PHYSICAL EXAMINATION: VITAL SIGNS: Afebrile, blood pressure 132/89, pulse 87, respirations 16, oxygen saturation 100% on room air. GENERAL: He is alert and oriented x3, in mild distress. HEENT: Normocephalic and atraumatic. NECK: Supple. No masses or lymphadenopathy. CARDIOVASCULAR: Regular rate and rhythm. PULMONARY: Breathing unlabored. ABDOMEN: Soft, nontender/nondistended. No masses or organomegaly. No suprapubic tenderness to palpation. No CVA tenderness. GENITOURINARY: Normal penis without concerning lesion. Right testicle is surgically absent. Left testicle is tender to palpation, but is soft. There is no firmness. No mass. No hydrocele. No other scrotal mass noted. LABORATORY DATA: All labs reviewed. There is no leukocytosis. Urine culture, no growth so far. ASSESSMENT: A 59-year-old male with chronic testicle pain of unknown etiology. PLAN: I reviewed chronic testicle pain with the patient and his sister in detail. The patient has a solitary testicle. I explained the implications of removing his solitary testicle and resulting profound hypogonadism and potential effects this may have. The patient is extremely frustrated throughout the entire visit with his level of pain. I explained that an orchectomy does not guarantee that this pain would resolve given the fact that it could be a more proximal nerve related pain. He understands this and requests orchectomy regardless. The patient is currently an established patient of Dr. Finn. The patient has refused a scrotal ultrasound. Currently, he reports he has had 2 of these done recently. He states he had one performed in December here, although there is no record of this that I could locate. He had one performed in [place] and his sister is going to try to get the record of this and she states this was performed over the weekend. The patient has established currently with 2 other urologists, who have performed a much more thorough workup. He is a very poor surgical candidate given his chronic DVTs with pulmonary emboli and chronic anticoagulation. I explained that this is an elective surgery and would have to be performed off anticoagulation. I will defer to the patient's established urologist for further decision making. If the patient wishes to follow up with me, he can follow up as an outpatient for further evaluation of this. All of the patient's and his sister's many questions were addressed. Job ID: [id number]
[2019-02-22] MEDS: Sodium Chloride 0.9% 1,000 ML IV SCH (00:54)
[2019-02-22] MEDS: oxyCODONE 5 MG TAB PO PRN ×4 (00:56→22:20)
[2019-02-22 05:56] LABS: Hemoglobin 11.2 g/dL (14.0-18.0); Mean Corpuscular HGB CONC 33.8 g/dL (32.0-36.0); Mean Corpuscular Hemoglobin 30.4 pg (27.0-31.0); Mean Corpuscular Volume 89.9 fL (78.0-98.0); Mean Platelet Volume 8.4 fL (7.4-10.4); Platelet Count 149 thou/uL (130-400); RBC Distribution Width 12.4 % (11.5-14.5); Red Blood Cell (RBC) Count 3.69 mill/uL (4.70-6.10)
[2019-02-22 06:10] LABS: Anion Gap 10 mmol/L (10-20); BUN (Urea Nitrogen) 11 mg/dL (8.4-25.7); Calc. Creatinine Clearance 158 mL/min (70-130); Calcium 8.4 mg/dL (7.8-10.44); Carbon Dioxide 24 mmol/L (23-31); Chloride 116 mmol/L (98-107); Estimated GFR-MDRD Greater than 90; Glucose 61 mg/dL (80-115); Potassium 3.9 mmol/L (3.5-5.1); Sodium 146 mmol/L (136-145)
[2019-02-22] MEDS: metFORMIN 500 MG TAB PO SCH ×2 (09:40→20:41)
[2019-02-22] MEDS: glipiZIDE 5 MG TAB PO SCH ×2 (09:40→20:42)
[2019-02-22] MEDS: Alogliptin 25 MG TAB PO SCH (09:40)
[2019-02-22] MEDS: Apixaban 5 MG TAB PO SCH ×2 (09:41→20:43)
[2019-02-22] MEDS: Lisinopril 10 MG TAB PO SCH (09:42)
[2019-02-22] MEDS: Gabapentin 300 MG CAP PO SCH ×3 (09:42→20:42)
[2019-02-22] MEDS: Aspirin Chewable 81 MG TAB PO SCH (09:42)
[2019-02-22] MEDS: Amoxicillin/Potassium Clav 500 MG TAB PO SCH ×2 (09:57→20:43)
[2019-02-22] MEDS: lamoTRIgine 100 MG TAB PO SCH (09:59)
[2019-02-22] MEDS: Naproxen 500 MG TAB PO PRN ×2 (10:43→20:48)
[2019-02-22] MEDS: levETIRAcetam In NaCl (Iso-Os) 1,000 MG in Premix Bag 1 BAG IVPB SCH (11:27)
[2019-02-22] MEDS: Ondansetron ODT 4 MG TAB PO PRN (16:06)
--- NOTE | 2019-02-22 16:51 | PDOC.HOSPP ---
- Subjective Encounter Date: 02/22/19 Encounter Time: 16:30 Subjective: The patient is doing well. HE states ativan helped with his pain if he gets it 30 minutes after oxycodone. He did not require fentanyl overnight. He states he slept seven hours. Is interested in pain management referral because he was told he could get a nerve block. Denies seizures overnight - Objective Vital Signs & Weight: Vital Signs (12 hours) Temp BP Pulse Ox 02/22/19 09:42 142/78 H 02/22/19 08:00 97.7 F 02/22/19 07:49 97 02/22/19 07:16 99 Weight Weight 216 lb 7.903 oz Most Recent Monitor Data Heart Rate from ECG 100 NIBP 117/58 NIBP BP-Mean 77 Respiration from ECG 18 SpO2 96 I&O: 02/21/19 02/22/19 02/23/19 06:59 06:59 06:59 Intake Total 100 4604 540 Output Total 905 1920 650 Balance -805 2684 -110 Result Diagrams: 02/22/19 05:31 02/22/19 05:31 Additional Labs: Accuchecks 02/22/19 02/22/19 02/22/19 16:16 11:30 06:07 POC Glucose 80 122 H 66 L 02/21/19 21:16 POC Glucose 123 H Hospitalist ROS - Review of Systems Constitutional: denies: fever, chills - Medication Medications: Active Medications Generic Name Dose Route Start Last Admin Trade Name Freq PRN Reason Stop Dose Admin Acetaminophen 650 mg 02/21/19 10:29 02/21/19 21:47 Tylenol PO 650 mg Q6H PRN Administration Moderate Pain (4-6) Alogliptin Benzoate 25 mg 02/21/19 09:00 02/22/19 09:40 Alogliptin PO 25 mg DAILY [facility] Administration Amoxicillin/Clavulanate Potassium 500 mg 02/22/19 09:00 02/22/19 09:57 Augmentin PO 02/26/19 21:01 500 mg Q12HR [facility] Administration Apixaban 5 mg 02/21/19 09:00 02/22/19 09:41 Eliquis PO 5 mg BID [facility] Administration Aspirin 81 mg 02/21/19 09:00 02/22/19 09:42 Aspirin Chewable PO 81 mg DAILY [facility] Administration Atorvastatin Calcium 10 mg 02/21/19 21:00 02/21/19 21:04 Lipitor PO 10 mg HS [facility] Administration Gabapentin 300 mg 02/21/19 09:00 02/22/19 16:06 Neurontin PO 300 mg TID [facility] Administration Glipizide 10 mg 02/21/19 09:00 02/22/19 09:40 Glucotrol PO 10 mg BID [facility] Administration Ketorolac Tromethamine 15 mg 02/21/19 14:43 02/21/19 21:47 Toradol IVP 02/26/19 14:44 15 mg Q6H PRN Administration Pain Lamotrigine 100 mg 02/21/19 09:00 02/22/19 09:59 Lamictal PO 100 mg DAILY [facility] Administration Lisinopril 10 mg 02/21/19 09:00 02/22/19 09:42 Zestril PO 10 mg DAILY [facility] Administration Metformin HCl 1,000 mg 02/21/19 09:00 02/22/19 09:40 Glucophage PO 1,000 mg BID [facility] Administration Naproxen 500 mg 02/22/19 08:38 02/22/19 10:43 Naprosyn PO 500 mg BID PRN Administration Pain Ondansetron HCl 4 mg 02/20/19 22:32 02/22/19 16:06 Zofran Odt PO 4 mg Q6H PRN Administration Nausea/Vomiting Ondansetron HCl 4 mg 02/20/19 22:32 02/21/19 10:43 Zofran IVP 4 mg Q6H PRN Administration Nausea/Vomiting Oxycodone HCl 5 mg 02/21/19 16:25 02/22/19 09:59 Oxycodone Ir PO 5 mg Q4H PRN Administration Severe Pain (7-10) Phenytoin Sodium 400 mg 02/21/19 21:00 02/21/19 21:06 Dilantin Er PO 400 mg QPM [facility] Administration Quetiapine Fumarate 300 mg 02/21/19 21:00 02/21/19 21:03 Seroquel PO 300 mg HS [facility] Administration - Exam General Appearance: NAD, awake alert Eye: PERRL, anicteric sclera ENT: normocephalic atraumatic, no oropharyngeal lesions Neck: supple, no JVD, no thyromegaly Heart: RRR, no murmur, no gallops Respiratory: CTAB, no wheezes, no rales, no ronchi Gastrointestinal: soft, non-tender, non-distended, normal bowel sounds, no palpable masses, no hepatomegaly Extremities: no cyanosis, no clubbing, no edema Skin: normal turgor, no lesions, no rashes Neurological: cranial nerve grossly intact, normal sensation to touch, no focal deficits, no new deficit Musculoskeletal: normal tone, normal strength, no muscle wasting Musculoskeletal - other findings: difficulty lifting legs due to pain Psychiatric: normal affect, normal behavior, A&O x 3, oriented to person, oriented to place, oriented to time Hosp A/P - Plan CT head 02/21/2019: no acute disease Chest X ray 02/21/2019: no acute disease Scrotal ultrasound 02/11/2018: normal blood flow, no torsion. Mildly enlarged left epidydymis without increased vascularity , small left hydrocele This is 59 year old male with history of seizures, diabetes, hypertension, hyperlipidemia who presented with seizure at home, was intubated, s/p extubation Status epilepticus - s/p extubation - on keppra IV bid, will switch to oral keppra 500 mg bid - continue dilantin 400 mg qpm Acute on chronic testicular pain - patient has been treated for epidydmitis in the past recently with antibiotics. Has had right testicle removed, wants left testicle to be removed however per urology he will have to be on testosterone replacement after which patient doesn't want because this would cause DVT. He is interested in pain management for nerve block - refused testicular ultrasound - continue oxycodone prn , ativan prn spaced 30 minutes apart. Hypernatremia/hyperchloremia - d/c fluids. Sodium was 146 DVT/PE -on eliquis, may need to hold this for any surgery Diabetes type II - insulin sliding scale -aloglpitin and glipizide Hyperlipidemia - continue statin Anemia - Hb 12, B12 and folate normal Code status: full code
[2019-02-22] MEDS: levETIRAcetam 500 MG TAB PO SCH (20:40)
[2019-02-22] MEDS: Atorvastatin Calcium 10 MG TAB PO SCH (20:43)
[2019-02-22] MEDS: Lorazepam 0.5 MG TAB PO PRN (20:44)
[2019-02-22] MEDS: Ketorolac Tromethamine 30 MG/ML VIAL IVP PRN (20:45)
[2019-02-23] MEDS: Ondansetron ODT 4 MG TAB PO PRN (04:44)
[2019-02-23] MEDS: Ketorolac Tromethamine 30 MG/ML VIAL IVP PRN (04:45)
[2019-02-23] MEDS: oxyCODONE 5 MG TAB PO PRN ×5 (04:46→22:48)
[2019-02-23 05:24] LABS: Hemoglobin 11.2 g/dL (14.0-18.0); Mean Corpuscular HGB CONC 33.6 g/dL (32.0-36.0); Mean Corpuscular Hemoglobin 30.5 pg (27.0-31.0); Mean Corpuscular Volume 90.7 fL (78.0-98.0); Mean Platelet Volume 8.4 fL (7.4-10.4); Platelet Count 155 thou/uL (130-400); RBC Distribution Width 12.3 % (11.5-14.5); Red Blood Cell (RBC) Count 3.66 mill/uL (4.70-6.10); White Blood Cell (WBC) Count 5.8 thou/uL (4.8-10.8)
[2019-02-23 05:50] LABS: Anion Gap 12 mmol/L (10-20); BUN (Urea Nitrogen) 9 mg/dL (8.4-25.7); Calc. Creatinine Clearance 163 mL/min (70-130); Calcium 8.4 mg/dL (7.8-10.44); Carbon Dioxide 22 mmol/L (23-31); Chloride 110 mmol/L (98-107); Estimated GFR-MDRD Greater than 90; Glucose 77 mg/dL (80-115); Potassium 3.9 mmol/L (3.5-5.1); Sodium 140 mmol/L (136-145)
[2019-02-23] MEDS: Aspirin Chewable 81 MG TAB PO SCH (08:48)
[2019-02-23] MEDS: Alogliptin 25 MG TAB PO SCH (08:48)
[2019-02-23] MEDS: metFORMIN 500 MG TAB PO SCH ×3 (08:48→21:31)
[2019-02-23] MEDS: levETIRAcetam 500 MG TAB PO SCH ×2 (08:48→21:30)
[2019-02-23] MEDS: Gabapentin 300 MG CAP PO SCH ×3 (08:48→21:30)
[2019-02-23] MEDS: Lisinopril 10 MG TAB PO SCH (08:49)
[2019-02-23] MEDS: Amoxicillin/Potassium Clav 500 MG TAB PO SCH ×3 (08:49→22:49)
[2019-02-23] MEDS: lamoTRIgine 100 MG TAB PO SCH (08:49)
[2019-02-23] MEDS: Apixaban 5 MG TAB PO SCH ×2 (08:49→22:49)
[2019-02-23] MEDS: glipiZIDE 5 MG TAB PO SCH ×2 (08:49→21:29)
[2019-02-23] MEDS: Lorazepam 0.5 MG TAB PO PRN ×4 (08:58→23:22)
--- NOTE | 2019-02-23 09:07 | PRG ---
DATE OF SERVICE: 02/22/2019 SERVICE: Pulmonary Medicine. INTERVAL HISTORY: The patient is doing fine from respiratory standpoint. Yesterday, he was extubated without any incident. He states he has been weaned down to room air. He has no complaints of chest discomfort, nausea or vomiting. He is not short of breath in any way. His biggest complaint is testicular discomfort. He has been working through this with Urology. PHYSICAL EXAMINATION: VITAL SIGNS: Afebrile, pulse 98, blood pressure 140/81, respirations 20, and saturation 100% on room air. GENERAL: The patient is awake and alert, in no apparent distress. LUNGS: Very good air entry without any prolonged expiratory phase, rhonchi or wheezing or crackles. HEART: Normal rate and regular. ABDOMEN: Soft, nontender, nondistended. Bowel sounds are positive. MUSCULOSKELETAL: No cyanosis or clubbing. No pitting in the bilateral lower extremities. NEUROLOGIC: Grossly nonfocal. LABORATORY DATA: WBC 6.0, hemoglobin 11.2, platelets 149,000. Basic metabolic profile is completely unremarkable. ABG does not demonstrate any evidence of hypercapnic failure. ASSESSMENT: 1. Respiratory failure secondary to inability to protect airway, resolved. 2. Seizure disorder, resolved. 3. Aspiration of vomitus with likely pneumonitis. 4. Testicular pain, chronic. DISCUSSION AND PLAN: At this point, the patient is stable for transition out of the ICU to the to the Stroke Unit or discharge home. When he leaves the ICU, he will have no further requirements for inpatient Pulmonary Critical Care opinion, and I will sign off. Please call with additional questions or concerns through time. Job ID: [id number]
--- NOTE | 2019-02-23 13:37 | PRG ---
DATE OF SERVICE: 02/23/2019 SERVICE: Pulmonary Medicine. INTERVAL HISTORY: The patient is doing fine from respiratory standpoint. Breathing comfortably. He has no complaints of seizure overnight. He did not have any fever. He is not coughing up any sputum. He denies any current fevers, chills, nausea, or vomiting. Otherwise, there has been no change to his condition. PHYSICAL EXAMINATION: VITAL SIGNS: Afebrile, pulse 87, blood pressure 155/69, respirations 18, and saturation 97% on room air. GENERAL: The patient is awake and alert, in no apparent distress. LUNGS: One full air entry. Minimal rhonchi are present, but clear with cough. No prolonged expiratory phase or wheezing appreciated. HEART: Normal rate, regular. ABDOMEN: Soft, nontender, and nondistended. Bowel sounds are positive. MUSCULOSKELETAL: No cyanosis or clubbing. No pitting in the bilateral lower extremities. NEUROLOGIC: Grossly nonfocal. LABORATORY DATA: WBC 5.8, hemoglobin 11.2, and platelets 155,000. Basic metabolic profile is essentially unremarkable otherwise. ASSESSMENT: 1. Respiratory failure secondary to inability to protect airway, resolved. 2. Seizure disorder with acute seizure, resolved. 3. Significant aspiration related event with pneumonitis, improving. 4. Testicular pain, chronic. DISCUSSION AND PLAN: At this point, the patient has no further requirements for inpatient Pulmonary/Critical Care opinion. On discharge from the hospital, he needs to complete a 5-day course of the Augmentin. From a purely respiratory standpoint, he is stable for discharge from the hospital. I will have him follow up with me as previously directed in the outpatient clinic for permanent anticoagulation requirements. Job ID: [id number]
--- NOTE | 2019-02-23 18:02 | PDOC.HOSPP ---
- Subjective Encounter Date: 02/23/19 Encounter Time: 17:00 Subjective: The patient states his testicular pain is well controlled with oxycodone prn and ativan 30 minutes after. Called and got pain clinic appt for Tuesday at 1: 30. Patient is anxious about going home because lives far away in [place]. He is willing to try increasing gabapentin, reported difficulty writing narcotic script on discharge. Patient states he will try to go home tomorrow but wouldn't mind even staying until Tuesday to get his pain controlled until his pain clinic appointment. \ No seizures overnight - Objective Vital Signs & Weight: Vital Signs (12 hours) Temp Pulse Resp BP BP Pulse Ox 02/23/19 15:54 99.1 F 97 18 133/65 94 L 02/23/19 11:53 97.8 F 87 18 155/69 H 97 02/23/19 09:16 98.1 F 94 18 143/66 H 99 02/23/19 08:49 140/90 02/23/19 08:00 97.8 F 98 Weight Weight 216 lb 7.903 oz Most Recent Monitor Data Heart Rate from ECG 98 NIBP 154/92 NIBP BP-Mean 112 Respiration from ECG 19 SpO2 94 I&O: 02/22/19 02/23/19 02/24/19 06:59 06:59 06:59 Intake Total 4604 1260 420 Output Total 1920 2040 275 Balance 2684 -780 145 Result Diagrams: 02/23/19 05:12 02/23/19 05:12 Additional Labs: Accuchecks 02/23/19 02/23/19 02/23/19 17:03 11:21 06:00 POC Glucose 162 H 134 H 69 L 02/22/19 20:40 POC Glucose 89 Hospitalist ROS - Review of Systems Constitutional: denies: fever, chills - Medication Medications: Active Medications Generic Name Dose Route Start Last Admin Trade Name Freq PRN Reason Stop Dose Admin Acetaminophen 650 mg 02/21/19 10:29 02/21/19 21:47 Tylenol PO 650 mg Q6H PRN Administration Moderate Pain (4-6) Alogliptin Benzoate 25 mg 02/21/19 09:00 02/23/19 08:48 Alogliptin PO 25 mg DAILY [facility] Administration Amoxicillin/Clavulanate Potassium 500 mg 02/22/19 09:00 02/23/19 08:49 Augmentin PO 02/26/19 21:01 500 mg Q12HR [facility] Administration Apixaban 5 mg 02/21/19 09:00 02/23/19 08:49 Eliquis PO 5 mg BID [facility] Administration Aspirin 81 mg 02/21/19 09:00 02/23/19 08:48 Aspirin Chewable PO 81 mg DAILY [facility] Administration Atorvastatin Calcium 10 mg 02/21/19 21:00 02/22/19 20:43 Lipitor PO 10 mg HS [facility] Administration Gabapentin 300 mg 02/21/19 09:00 02/23/19 14:21 Neurontin PO 300 mg TID [facility] Administration Glipizide 10 mg 02/21/19 09:00 02/23/19 08:49 Glucotrol PO 10 mg BID [facility] Administration Ketorolac Tromethamine 15 mg 02/21/19 14:43 02/23/19 04:45 Toradol IVP 02/26/19 14:44 15 mg Q6H PRN Administration Pain Lamotrigine 100 mg 02/21/19 09:00 02/23/19 08:49 Lamictal PO 100 mg DAILY [facility] Administration Levetiracetam 1,000 mg 02/22/19 21:00 02/23/19 08:48 Keppra PO 1,000 mg BID [facility] Administration Lisinopril 10 mg 02/21/19 09:00 02/23/19 08:49 Zestril PO 10 mg DAILY [facility] Administration Lorazepam 0.5 mg 02/22/19 00:28 02/23/19 14:21 Ativan PO 0.5 mg Q4H PRN Administration Anxiety Metformin HCl 1,000 mg 02/21/19 09:00 02/23/19 08:53 Glucophage PO Not Given BID [facility] Naproxen 500 mg 02/22/19 08:38 02/22/19 20:48 Naprosyn PO 500 mg BID PRN Administration Pain Ondansetron HCl 4 mg 02/20/19 22:32 02/23/19 04:44 Zofran Odt PO 4 mg Q6H PRN Administration Nausea/Vomiting Ondansetron HCl 4 mg 02/20/19 22:32 02/21/19 10:43 Zofran IVP 4 mg Q6H PRN Administration Nausea/Vomiting Oxycodone HCl 5 mg 02/21/19 16:25 02/23/19 17:51 Oxycodone Ir PO 5 mg Q4H PRN Administration Severe Pain (7-10) Phenytoin Sodium 400 mg 02/21/19 21:00 02/22/19 20:41 Dilantin Er PO 400 mg QPM [facility] Administration Quetiapine Fumarate 300 mg 02/21/19 21:00 02/22/19 20:47 Seroquel PO 300 mg HS [facility] Administration - Exam General Appearance: NAD, awake alert Eye: PERRL, anicteric sclera ENT: normocephalic atraumatic, no oropharyngeal lesions Neck: supple, symmetric, no JVD, no thyromegaly Heart: RRR, no murmur, no gallops, no rubs Respiratory: CTAB, no wheezes, no rales, no ronchi Gastrointestinal: soft, non-tender, non-distended Extremities: no cyanosis, no clubbing, no edema Skin: normal turgor, no lesions, no rashes Neurological: cranial nerve grossly intact, normal sensation to touch, no focal deficits, no new deficit, speech deficit Musculoskeletal: normal tone, normal strength, no muscle wasting Psychiatric: normal affect, normal behavior, A&O x 3, oriented to person Hosp A/P - Plan CT head 02/21/2019: no acute disease Chest X ray 02/21/2019: no acute disease Scrotal ultrasound 02/11/2018: normal blood flow, no torsion. Mildly enlarged left epidydymis without increased vascularity , small left hydrocele This is 59 year old male with history of seizures, diabetes, hypertension, hyperlipidemia who presented with seizure at home, was intubated, s/p extubation Status epilepticus - s/p extubation - was on IV keppra, continue oral keppra [address] head negative - continue dilantin 400 mg qpm Acute on chronic testicular pain - patient has been treated for epidydmitis in the past recently with antibiotics. S/p right testicular removal. Urology consulted, stated testicle removal not recommended given that he will need hormone replacement and already has DVT history - pain controlled with oxycodone 5 q4 prn with ativan 0.5 mg q4 prn 30 minutes after. No relief with toradol - on gabapentin 300 mg tid, will increase to 600 mg tid - refused testicular ultrasound this admission. Most recent one last week was normal - pain management Appointment with Dr. Henry Marquez Monday 02/26 at 1:30 pm . Patient interested in nerve block Hypernatremia/hyperchloremia- resolved DVT/PE -on eliquis, may need to hold this for any surgery Diabetes type II - insulin sliding scale -aloglpitin and glipizide Hyperlipidemia - continue statin Anemia - Hb 12, B12 and folate normal Dispo: d/c tomorrow vs Tuesday Code status: full code
[2019-02-23] MEDS: Ondansetron PF 4 MG/2 ML Vial IVP PRN (21:29)
[2019-02-23] MEDS: Atorvastatin Calcium 10 MG TAB PO SCH (21:30)
[2019-02-24] MEDS: Ketorolac Tromethamine 30 MG/ML VIAL IVP PRN (02:38)
[2019-02-24] MEDS: oxyCODONE 5 MG TAB PO PRN ×3 (03:12→11:21)
[2019-02-24] MEDS: Lorazepam 0.5 MG TAB PO PRN ×5 (03:52→20:27)
[2019-02-24] MEDS: Ondansetron PF 4 MG/2 ML Vial IVP PRN ×3 (03:54→20:20)
[2019-02-24] MEDS: Apixaban 5 MG TAB PO SCH ×2 (09:57→20:34)
[2019-02-24] MEDS: Amoxicillin/Potassium Clav 500 MG TAB PO SCH ×2 (10:23→20:25)
[2019-02-24] MEDS: metFORMIN 500 MG TAB PO SCH ×2 (10:23→20:32)
[2019-02-24] MEDS: Gabapentin 300 MG CAP PO SCH ×3 (10:25→20:32)
[2019-02-24] MEDS: Alogliptin 25 MG TAB PO SCH (10:25)
[2019-02-24] MEDS: Aspirin Chewable 81 MG TAB PO SCH (10:25)
[2019-02-24] MEDS: lamoTRIgine 100 MG TAB PO SCH (10:26)
[2019-02-24] MEDS: Lisinopril 10 MG TAB PO SCH (10:26)
[2019-02-24] MEDS: glipiZIDE 5 MG TAB PO SCH ×2 (10:26→20:29)
[2019-02-24] MEDS: levETIRAcetam 500 MG TAB PO SCH ×2 (10:26→20:29)
--- NOTE | 2019-02-24 13:22 | PDOC.HOSPP ---
- Subjective Encounter Date: 02/24/19 Encounter Time: 13:20 Subjective: Patient seen and examined. No new complaints. No overnight events. still have testicular pain and Nausea - Objective Vital Signs & Weight: Vital Signs (12 hours) Temp Pulse Resp BP BP Pulse Ox 02/24/19 11:27 98.9 F 88 16 161/77 H 97 02/24/19 10:26 140/90 02/24/19 07:40 95 02/24/19 07:32 98.6 F 93 16 158/70 H 95 02/24/19 03:10 98.5 F 94 20 119/55 L 97 Weight Weight 216 lb 7.903 oz Most Recent Monitor Data Heart Rate from ECG 98 NIBP 154/92 NIBP BP-Mean 112 Respiration from ECG 19 SpO2 94 I&O: 02/23/19 02/24/19 02/25/19 06:59 06:59 05:59 Intake Total 1260 900 600 Output Total 2040 2725 0 Balance -780 -1825 600 Result Diagrams: 02/23/19 05:12 02/23/19 05:12 Additional Labs: Accuchecks 02/24/19 02/24/19 02/23/19 10:38 06:24 19:32 POC Glucose 196 H 111 H 136 H 02/23/19 02/21/19 17:03 16:49 POC Glucose 162 H 159 H Hospitalist ROS - Medication Medications: Active Medications Generic Name Dose Route Start Last Admin Trade Name Freq PRN Reason Stop Dose Admin Acetaminophen 650 mg 02/21/19 10:29 02/21/19 21:47 Tylenol PO 650 mg Q6H PRN Administration Moderate Pain (4-6) Alogliptin Benzoate 25 mg 02/21/19 09:00 02/24/19 10:25 Alogliptin PO 25 mg DAILY [facility] Administration Amoxicillin/Clavulanate Potassium 500 mg 02/22/19 09:00 02/24/19 10:23 Augmentin PO 02/26/19 21:01 Not Given Q12HR [facility] Apixaban 5 mg 02/21/19 09:00 02/24/19 09:57 Eliquis PO Not Given BID [facility] Aspirin 81 mg 02/21/19 09:00 02/24/19 10:25 Aspirin Chewable PO 81 mg DAILY [facility] Administration Atorvastatin Calcium 10 mg 02/21/19 21:00 02/23/19 21:30 Lipitor PO 10 mg HS [facility] Administration Gabapentin 600 mg 02/23/19 21:00 02/24/19 10:25 Neurontin PO 600 mg TID [facility] Administration Glipizide 10 mg 02/21/19 09:00 02/24/19 10:26 Glucotrol PO 10 mg BID [facility] Administration Ketorolac Tromethamine 15 mg 02/21/19 14:43 02/24/19 02:38 Toradol IVP 02/26/19 14:44 15 mg Q6H PRN Administration Pain Lamotrigine 100 mg 02/21/19 09:00 02/24/19 10:26 Lamictal PO 100 mg DAILY [facility] Administration Levetiracetam 1,000 mg 02/22/19 21:00 02/24/19 10:26 Keppra PO 1,000 mg BID [facility] Administration Lisinopril 10 mg 02/21/19 09:00 02/24/19 10:26 Zestril PO 10 mg DAILY [facility] Administration Lorazepam 0.5 mg 02/22/19 00:28 02/24/19 12:11 Ativan PO 0.5 mg Q4H PRN Administration Anxiety Metformin HCl 1,000 mg 02/21/19 09:00 02/24/19 10:23 Glucophage PO Not Given BID [facility] Naproxen 500 mg 02/22/19 08:38 02/22/19 20:48 Naprosyn PO 500 mg BID PRN Administration Pain Ondansetron HCl 4 mg 02/20/19 22:32 02/23/19 04:44 Zofran Odt PO 4 mg Q6H PRN Administration Nausea/Vomiting Ondansetron HCl 4 mg 02/20/19 22:32 02/24/19 09:55 Zofran IVP 4 mg Q6H PRN Administration Nausea/Vomiting Phenytoin Sodium 400 mg 02/21/19 21:00 02/23/19 21:30 Dilantin Er PO 400 mg QPM [facility] Administration Quetiapine Fumarate 300 mg 02/21/19 21:00 02/23/19 21:30 Seroquel PO 300 mg HS [facility] Administration - Exam General Appearance: NAD Eye: anicteric sclera ENT: normocephalic atraumatic Neck: supple Heart: RRR Respiratory: CTAB Gastrointestinal: soft Extremities: no edema Skin: normal turgor Neurological: no weakness, no focal deficits, no new deficit Musculoskeletal: normal tone Psychiatric: normal affect Hosp A/P (1) Testicular pain Code(s): N50.819 - TESTICULAR PAIN, UNSPECIFIED Status: Acute (2) DVT (deep venous thrombosis) Code(s): I82.409 - ACUTE EMBOLISM AND THOMBOS UNSP DEEP VN UNSP LOWER EXTREMITY Status: Acute Qualifiers: DVT location: lower extremity Chronicity: acute Laterality: right (3) Schizoaffective disorder Code(s): F25.9 - SCHIZOAFFECTIVE DISORDER, UNSPECIFIED Status: Acute (4) Anxiety disorder Code(s): F41.9 - ANXIETY DISORDER, UNSPECIFIED Status: Chronic Qualifiers: Anxiety disorder type: generalized anxiety disorder Qualified Code(s): F41.1 - Generalized anxiety disorder (5) Diabetes mellitus, type II Status: Chronic Qualifiers: Diabetes mellitus nursing home insulin use: without rn long term care use Diabetes mellitus complication status: with neurologic complications Diabetes mellitus complication detail: with unspecified neuropathy Qualified Code(s): E11.40 - Type 2 diabetes mellitus with diabetic neuropathy, unspecified (6) Epilepsy Code(s): G40.909 - EPILEPSY, UNSP, NOT INTRACTABLE, WITHOUT STATUS EPILEPTICUS Status: Chronic Qualifiers: Epilepsy type: unspecified Status epilepticus: without status epilepticus (7) Hypertension Code(s): I10 - ESSENTIAL (PRIMARY) HYPERTENSION Status: Chronic Qualifiers: Hypertension type: essential hypertension (8) Seizure Code(s): R56.9 - UNSPECIFIED CONVULSIONS Status: Chronic - Plan old records reviewed/req will change oxycodone to norco. continue to monitor. BS controlled continue [place] [facility] [place] Appreciate neuro input.
[2019-02-24] MEDS: HYDROcodone/Acetaminophen 7.5/325 mg Tablet PO PRN ×2 (16:12→20:27)
[2019-02-24] MEDS: Atorvastatin Calcium 10 MG TAB PO SCH (20:29)
[2019-02-25] MEDS: HYDROcodone/Acetaminophen 7.5/325 mg Tablet PO PRN ×5 (01:49→19:43)
[2019-02-25] MEDS: Lorazepam 0.5 MG TAB PO PRN ×5 (01:51→21:45)
[2019-02-25] MEDS: glipiZIDE 5 MG TAB PO SCH ×2 (09:04→21:46)
[2019-02-25] MEDS: levETIRAcetam 500 MG TAB PO SCH ×2 (09:04→21:48)
[2019-02-25] MEDS: Alogliptin 25 MG TAB PO SCH (09:04)
[2019-02-25] MEDS: metFORMIN 500 MG TAB PO SCH ×2 (09:04→21:51)
[2019-02-25] MEDS: Lisinopril 10 MG TAB PO SCH (09:05)
[2019-02-25] MEDS: lamoTRIgine 100 MG TAB PO SCH (09:05)
[2019-02-25] MEDS: Gabapentin 300 MG CAP PO SCH ×3 (09:05→21:50)
[2019-02-25] MEDS: Aspirin Chewable 81 MG TAB PO SCH (09:05)
[2019-02-25] MEDS: Apixaban 5 MG TAB PO SCH ×2 (09:06→21:51)
[2019-02-25] MEDS: Amoxicillin/Potassium Clav 500 MG TAB PO SCH ×2 (10:10→21:49)
--- NOTE | 2019-02-25 10:59 | PDOC.HOSPP ---
- Subjective Encounter Date: 02/25/19 Encounter Time: 10:57 Subjective: Pt feeling better. Pain better controlled. - Objective Vital Signs & Weight: Vital Signs (12 hours) Temp Pulse Resp BP Pulse Ox 02/25/19 07:50 99.5 F 92 16 139/66 97 02/25/19 04:37 92 L 02/25/19 03:32 97.8 F 97 18 140/76 92 L Weight Weight 216 lb 7.903 oz Most Recent Monitor Data Heart Rate from ECG 98 NIBP 154/92 NIBP BP-Mean 112 Respiration from ECG 19 SpO2 94 I&O: 02/24/19 02/25/19 02/26/19 07:59 06:59 06:59 Intake Total 500 Output Total 250 Balance 250 Result Diagrams: 02/23/19 05:12 02/23/19 05:12 Additional Labs: Accuchecks 02/25/19 02/24/19 02/24/19 10:11 19:29 17:01 POC Glucose 203 H 194 H 169 H Hospitalist ROS - Medication Medications: Active Medications Generic Name Dose Route Start Last Admin Trade Name Freq PRN Reason Stop Dose Admin Acetaminophen 650 mg 02/21/19 10:29 02/21/19 21:47 Tylenol PO 650 mg Q6H PRN Administration Moderate Pain (4-6) Hydrocodone Bitart/Acetaminophen 1 tab 02/24/19 13:19 02/25/19 10:08 [place] 7.5/325 PO 1 tab Q4H PRN Administration Moderate to Severe Pain (6-10) Alogliptin Benzoate 25 mg 02/21/19 09:00 02/25/19 09:04 Alogliptin PO 25 mg DAILY MERCED Administration Amoxicillin/Clavulanate Potassium 500 mg 02/22/19 09:00 02/25/19 10:10 Augmentin PO 02/26/19 21:01 500 mg Q12HR MERCED Administration Apixaban 5 mg 02/21/19 09:00 02/25/19 09:06 Eliquis PO Not Given BID MERCED Aspirin 81 mg 02/21/19 09:00 02/25/19 09:05 Aspirin Chewable PO 81 mg DAILY MERCED Administration Atorvastatin Calcium 10 mg 02/21/19 21:00 02/24/19 20:29 Lipitor PO 10 mg HS MERCED Administration Gabapentin 600 mg 02/23/19 21:00 02/25/19 09:05 Neurontin PO 600 mg TID MERCED Administration Glipizide 10 mg 02/21/19 09:00 02/25/19 09:04 Glucotrol PO 10 mg BID MERCED Administration Ketorolac Tromethamine 15 mg 02/21/19 14:43 02/24/19 02:38 Toradol IVP 02/26/19 14:44 15 mg Q6H PRN Administration Pain Lamotrigine 100 mg 02/21/19 09:00 02/25/19 09:05 Lamictal PO 100 mg DAILY MERCED Administration Levetiracetam 1,000 mg 02/22/19 21:00 02/25/19 09:04 Keppra PO 1,000 mg BID MERCED Administration Lisinopril 10 mg 02/21/19 09:00 02/25/19 09:05 Zestril PO 10 mg DAILY MERCED Administration Lorazepam 0.5 mg 02/22/19 00:28 02/25/19 10:09 Ativan PO 0.5 mg Q4H PRN Administration Anxiety Metformin HCl 1,000 mg 02/21/19 09:00 02/25/19 09:04 Glucophage PO 1,000 mg BID MERCED Administration Naproxen 500 mg 02/22/19 08:38 02/22/19 20:48 Naprosyn PO 500 mg BID PRN Administration Pain Ondansetron HCl 4 mg 02/20/19 22:32 02/23/19 04:44 Zofran Odt PO 4 mg Q6H PRN Administration Nausea/Vomiting Ondansetron HCl 4 mg 02/20/19 22:32 02/24/19 20:20 Zofran IVP 4 mg Q6H PRN Administration Nausea/Vomiting Phenytoin Sodium 400 mg 02/21/19 21:00 02/24/19 20:26 Dilantin Er PO 400 mg QPM MERCED Administration Quetiapine Fumarate 300 mg 02/21/19 21:00 02/24/19 20:31 Seroquel PO 300 mg HS MERCED Administration Sodium Chloride 10 ml 02/24/19 21:00 02/25/19 09:06 Flush - Normal Saline IVF Not Given Q12HR MERCED - Exam General Appearance: NAD Eye: anicteric sclera ENT: normocephalic atraumatic Neck: supple Heart: RRR Respiratory: CTAB Gastrointestinal: soft Skin: normal turgor Musculoskeletal: normal tone Hosp A/P (1) Testicular pain Code(s): N50.819 - TESTICULAR PAIN, UNSPECIFIED Status: Acute (2) DVT (deep venous thrombosis) Code(s): I82.409 - ACUTE EMBOLISM AND THOMBOS UNSP DEEP VN UNSP LOWER EXTREMITY Status: Acute Qualifiers: DVT location: lower extremity Chronicity: acute Laterality: right (3) Schizoaffective disorder Code(s): F25.9 - SCHIZOAFFECTIVE DISORDER, UNSPECIFIED Status: Acute (4) Anxiety disorder Code(s): F41.9 - ANXIETY DISORDER, UNSPECIFIED Status: Chronic Qualifiers: Anxiety disorder type: generalized anxiety disorder Qualified Code(s): F41.1 - Generalized anxiety disorder (5) Diabetes mellitus, type II Status: Chronic Qualifiers: Diabetes mellitus fdc insulin use: without fdc use Diabetes mellitus complication status: with neurologic complications Diabetes mellitus complication detail: with unspecified neuropathy Qualified Code(s): E11.40 - Type 2 diabetes mellitus with diabetic neuropathy, unspecified (6) Epilepsy Code(s): G40.909 - EPILEPSY, UNSP, NOT INTRACTABLE, WITHOUT STATUS EPILEPTICUS Status: Chronic Qualifiers: Epilepsy type: unspecified Status epilepticus: without status epilepticus (7) Hypertension Code(s): I10 - ESSENTIAL (PRIMARY) HYPERTENSION Status: Chronic Qualifiers: Hypertension type: essential hypertension (8) Seizure Code(s): R56.9 - UNSPECIFIED CONVULSIONS Status: Chronic - Plan old records reviewed/req, plan discussed w/ family pain better controlled. Pt is weak and will have PT screen. If stable, will DC home on pain meds. Advised to f/u with pain management tomorrow. BS controlled continue [place] and [place] Appreciate Neuro input.
[2019-02-25] MEDS: Ondansetron ODT 4 MG TAB PO PRN ×2 (11:38→21:56)
[2019-02-25] MEDS: Naproxen 500 MG TAB PO PRN (14:27)
[2019-02-25] MEDS: Atorvastatin Calcium 10 MG TAB PO SCH (21:49)
[2019-02-26] MEDS: HYDROcodone/Acetaminophen 7.5/325 mg Tablet PO PRN ×4 (00:03→12:38)
[2019-02-26] MEDS: Lorazepam 0.5 MG TAB PO PRN ×2 (01:58→05:58)
[2019-02-26] MEDS: Apixaban 5 MG TAB PO SCH (08:20)
[2019-02-26] MEDS: levETIRAcetam 500 MG TAB PO SCH (08:30)
[2019-02-26] MEDS: metFORMIN 500 MG TAB PO SCH (08:30)
[2019-02-26] MEDS: Lisinopril 10 MG TAB PO SCH (08:30)
[2019-02-26] MEDS: Alogliptin 25 MG TAB PO SCH (08:30)
[2019-02-26] MEDS: Aspirin Chewable 81 MG TAB PO SCH (08:30)
[2019-02-26] MEDS: Gabapentin 300 MG CAP PO SCH (08:32)
[2019-02-26] MEDS: lamoTRIgine 100 MG TAB PO SCH (08:32)
[2019-02-26] MEDS: glipiZIDE 5 MG TAB PO SCH (10:26)
[2019-02-26] MEDS: Amoxicillin/Potassium Clav 500 MG TAB PO SCH (11:14)
[2019-02-26 12:01] VITALS: BP 165/78
[2019-02-26 12:12] VITALS: TEMP 98.2
--- NOTE | 2019-02-26 12:22 | DIS ---
DATE OF ADMISSION: 02/20/2019 DATE OF DISCHARGE: 02/26/2019 DISCHARGE DISPOSITION: Home. FOLLOWUP: 1. Follow up with primary care physician, Dr. Larissa Jones in 1 week. 2. The patient has a followup with Pain Clinic today. ALLERGIES: MORPHINE. THE PATIENT WAS SEEN ON THE DAY OF DISCHARGE. DENIES ANY NEW COMPLAINTS. NO CHEST PAIN, SHORTNESS OF BREATH, OR PALPITATIONS REPORTED. INPATIENT CONFIGURATION MANAGER: Urology, Dr. Bermudez. BRIEF HOSPITAL COURSE: The patient is a 59-year-old male with seizure disorder, presented to the hospital with altered mentation. EMS reported the patient was altered and combative. He also had an episode of vomiting after seizure prior to arrival. Please refer to the history and physical dictated by Dr. Sharma for further details. The patient was admitted to the hospital with a diagnosis of toxic metabolic encephalopathy secondary to seizure with respiratory failure, requiring mechanical intubation. He was monitored in the intensive care unit. Dilantin was continued. He was started on Keppra as well. He was evaluated by Neurology, who recommended Keppra 1000 mg b.i.d. until the patient is evaluated by Dr. Land as outpatient. His workup was also consistent with right upper lobe infiltrate, suspected secondary to aspiration pneumonia. He was placed on antibiotics, which have been changed to oral. The patient has significant chronic testicular pain, for which he was evaluated by Urology, Dr. Bermudez. Dr. Bermudez recommended outpatient followup with Dr. Finn. The patient also has appointment with Dr. Marquez for possible consideration for block for chronic testicular pain. He has been cleared by consultants for discharge. FINAL DIAGNOSES: 1. Status epilepticus. 2. Toxic metabolic encephalopathy secondary to #1. 3. Acute hypoxic respiratory failure, requiring mechanical ventilation. 4. Aspiration pneumonia. 5. Hypertension. 6. Diabetes mellitus, type 2. 7. Chronic pain syndrome. 8. Chronic pelvic/testicular pain. 9. Schizophrenia. 10. Anxiety. 11. Bipolar disorder. 12. Depression, mild, stable. 13. History of deep vein thrombosis and pulmonary embolism, on anticoagulation. 14. History of seizure disorder. 15. Hyperlipidemia. 16. History of tobacco and cannabis abuse. 17. Anemia, suspected chronic. 18. Hypokalemia, replaced. PLAN: Plan of care was discussed with the patient in detail. He stated understanding. Job ID: [id number]
== END 2019-02-26 13:00 | disposition home or self-care (01) | DRG 100 ==
LOC: ERS 20:24 → CCU 21:40 → 2SE 02-23 09:20
PROVIDERS: ADMIT Family Medicine; ATTEND Family Medicine
PROC: 5A1935Z Respiratory Ventilation, Less than 24 Consecutive Hours (ICD-10-PCS; principal; 2019-02-20)
PROC: 0BH17EZ Insertion of Endotracheal Airway into Trachea, Via Natural or Artificial Opening (ICD-10-PCS; 2019-02-20)
DX: G40.901 Epilepsy, unspecified, not intractable, with status epilepticus (principal); G92 Toxic encephalopathy; J96.01 Acute respiratory failure with hypoxia; J69.0 Pneumonitis due to inhalation of food and vomit; I10 Essential (primary) hypertension; G89.29 Other chronic pain; F20.9 Schizophrenia, unspecified; E78.5 Hyperlipidemia, unspecified; F41.9 Anxiety disorder, unspecified; F14.10 Cocaine abuse, uncomplicated; D63.8 Anemia in other chronic diseases classified elsewhere; E87.6 Hypokalemia; E66.9 Obesity, unspecified; F31.9 Bipolar disorder, unspecified; E87.8 Other disorders of electrolyte and fluid balance, not elsewhere classified; F17.220 Nicotine dependence, chewing tobacco, uncomplicated; Z88.6 Allergy status to analgesic agent; Z86.718 Personal history of other venous thrombosis and embolism; Z86.711 Personal history of pulmonary embolism; Z79.01 Long term (current) use of anticoagulants; Z90.49 Acquired absence of other specified parts of digestive tract
CPT/HCPCS: 36415; 36416; 51702; 70450; 71045; 80048; 80053; 80175; 80185; 81003; 81015; 82607; 82728; 82746; 82805; 83540; 83550; 84146; 85007; 85025; 85027; 87086; 94002; 94003; 96365; J1885; J1953; J2060; J2405; J2704; J3010; Q0162

== ENCOUNTER 2021-05-25 15:19 | Emergency (ER) | payer MEDICARE ==
[2021-05-25 16:09] LABS: #Basophils 0.1 thou/uL (0.0-0.2); #Eosinphils 0.1 thou/uL (0.0-0.7); #Lymphocytes 2.3 thou/uL (1.20-3.40); #Monocytes 0.7 thou/uL (0.11-0.59); #Neutrophils 3.5 thou/uL (1.40-6.50); %Basophils 1.3 % (0.0-1.0); %Eosinophils 2.2 % (0.0-10.0); %Lymphocytes 33.8 % (21.0-51.0); %Monocytes 10.4 % (0.0-10.0); %Neutrophils 52.3 % (42.0-75.0); Hemoglobin 13.7 g/dL (14.0-18.0); Mean Corpuscular HGB CONC 33.1 g/dL (32.0-36.0); Mean Corpuscular Hemoglobin 30.4 pg (27.0-31.0); Mean Corpuscular Volume 91.9 fL (78.0-98.0); Mean Platelet Volume 8.2 fL (7.4-10.4); Platelet Count 187 thou/uL (130-400); RBC Distribution Width 13.1 % (11.5-14.5); Red Blood Cell (RBC) Count 4.52 mill/uL (4.70-6.10); White Blood Cell (WBC) Count 6.7 thou/uL (4.8-10.8)
[2021-05-25 16:29] LABS: ALT (SGPT) 22 U/L (8-55); AST (SGOT) 14 U/L (5-34); Albumin 3.7 g/dL (3.4-4.8); Alkaline Phosphatase 83 U/L (40-110); Anion Gap 11 mmol/L (10-20); BUN (Urea Nitrogen) 16 mg/dL (8.4-25.7); Bilirubin, Total Less than 0.2 mg/dL (0.2-1.2); Calc. Creatinine Clearance 0 mL/min (70-130); Calcium 9.2 mg/dL (7.8-10.44); Carbon Dioxide 25 mmol/L (23-31); Chloride 104 mmol/L (98-107); Glucose 272 mg/dL (80-115); Lipase 30 U/L (8-78); Potassium 4.2 mmol/L (3.5-5.1); Protein, Total 6.7 g/dL (5.8-8.1); Sodium 136 mmol/L (136-145)
[2021-05-25] MEDS ORDERED: Fentanyl 100 MCG/2 ML VIAL ONE (16:46)
[2021-05-25] MEDS ORDERED: Ondansetron PF 4 MG/2 ML Vial ONE (16:46)
== END 2021-05-25 17:55 | disposition home or self-care (01) ==
LOC: ERS 15:19
DX: R10.9 Unspecified abdominal pain (principal); E66.9 Obesity, unspecified; E78.5 Hyperlipidemia, unspecified; E11.9 Type 2 diabetes mellitus without complications; F17.220 Nicotine dependence, chewing tobacco, uncomplicated
CPT/HCPCS: 36415; 74177; 80053; 83605; 83690; 84484; 85025; 93005; 96374; 96375; J2405; J3010

== ENCOUNTER 2021-09-18 16:42 | Emergency (ER) | payer MEDICARE ==
[~2021-09-18 16:42] MED LIST changes: -ISOVUE-370 76%-LOCM 1 ML ONE; +Iopamidol-370 76% 500 ML 1 ML ONE
[2021-09-18] MEDS ORDERED: Acetaminophen 500 MG TAB ONE (17:48)
[2021-09-18 17:57] LABS: Bilirubin Negative (Negative); Blood, Urine Negative (Negative); Clarity Clear (Clear); Glucose, Urine (Dipstick) Greater than 1000 mg/dL (Negative); Ketone, Urine Negative (Negative); Leukocyte Negative Leu/uL (Negative); Nitrite Negative (Negative); Protein, Urine (Dipstick) Negative (Neg-Trace); Specific Gravity, Urine 1.034 (1.002-1.036); Urobilinogen Normal mg/dL (Less than 2); pH, Urine 5.5 (5.0-9.0)
[2021-09-18 18:20] LABS: #Eosinphils 0.2 thou/uL (0.0-0.7); #Lymphocytes 1.8 thou/uL (1.20-3.40); #Monocytes 0.7 thou/uL (0.11-0.59); #Neutrophils 6.8 thou/uL (1.40-6.50); %Basophils 0.4 % (0.0-1.0); %Eosinophils 1.9 % (0.0-10.0); %Lymphocytes 18.4 % (21.0-51.0); %Monocytes 7.8 % (0.0-10.0); %Neutrophils 71.6 % (42.0-75.0); Hemoglobin 13.1 g/dL (14.0-18.0); Mean Corpuscular HGB CONC 33.3 g/dL (32.0-36.0); Mean Corpuscular Hemoglobin 30.9 pg (27.0-31.0); Mean Corpuscular Volume 92.9 fL (78.0-98.0); Platelet Count 160 thou/uL (130-400); RBC Distribution Width 12.8 % (11.5-14.5); Red Blood Cell (RBC) Count 4.23 mill/uL (4.70-6.10); White Blood Cell (WBC) Count 9.5 thou/uL (4.8-10.8)
[2021-09-18] MEDS ORDERED: Ketorolac Tromethamine 30 MG/ML VIAL ONE (18:31)
[2021-09-18 18:42] LABS: ALT (SGPT) 19 U/L (8-55); AST (SGOT) 15 U/L (5-34); Albumin 3.4 g/dL (3.4-4.8); Alkaline Phosphatase 95 U/L (40-110); Anion Gap 15 mmol/L (10-20); BUN (Urea Nitrogen) 19 mg/dL (8.4-25.7); Bilirubin, Total Less than 0.2 mg/dL (0.2-1.2); Calc. Creatinine Clearance 0 mL/min (70-130); Calcium 8.4 mg/dL (7.8-10.44); Carbon Dioxide 22 mmol/L (23-31); Chloride 102 mmol/L (98-107); Globulin 2.9 g/dL (2.4-3.5); Glucose 392 mg/dL (80-115); Potassium 4.7 mmol/L (3.5-5.1); Protein, Total 6.3 g/dL (5.8-8.1); Sodium 134 mmol/L (136-145)
== END 2021-09-18 21:07 | disposition home or self-care (01) ==
LOC: ERS 16:42
DX: G89.29 Other chronic pain (principal); R10.30 Lower abdominal pain, unspecified; R20.2 Paresthesia of skin; E11.65 Type 2 diabetes mellitus with hyperglycemia; I10 Essential (primary) hypertension; E66.9 Obesity, unspecified; E78.5 Hyperlipidemia, unspecified; E78.00 Pure hypercholesterolemia, unspecified; F17.220 Nicotine dependence, chewing tobacco, uncomplicated; Z86.718 Personal history of other venous thrombosis and embolism; Z86.711 Personal history of pulmonary embolism
CPT/HCPCS: 70450; 74177; 76870; 80053; 81003; 85025; 87086; 93976; 96374; J1885; Q9967

== ENCOUNTER 2022-11-23 15:57 | Emergency (ER) | payer MEDICARE ==
[2022-11-23] MEDS ORDERED: fentaNYL 50 mcg/mL 1 mL Vial ONE ×2 (17:14→18:19)
[2022-11-23] MEDS ORDERED: Diazepam 5 MG TAB ONE (17:56)
[2022-11-23 18:12] LABS: #Basophils 0.1 thou/uL (0.0-0.2); #Eosinphils 0.1 thou/uL (0.0-0.7); #Monocytes 0.6 thou/uL (0.11-0.59); %Basophils 0.7 % (0.0-1.0); %Eosinophils 1.1 % (0.0-10.0); %Lymphocytes 19.7 % (21.0-51.0); %Monocytes 8.4 % (0.0-10.0); %Neutrophils 69.5 % (42.0-75.0); Hemoglobin 13.7 g/dL (14.0-18.0); Mean Corpuscular HGB CONC 31.2 g/dL (32.0-36.0); Mean Corpuscular Hemoglobin 29.5 pg (27.0-31.0); Mean Corpuscular Volume 94.4 fl (78.0-98.0); Mean Platelet Volume 11.4 fL (7.4-10.4); Platelet Count 200 10x3/uL (130-400); RBC Distribution Width 14.6 % (11.5-14.5); Red Blood Cell (RBC) Count 4.65 mill/uL (4.70-6.10); White Blood Cell (WBC) Count 7.1 10x3/uL (4.8-10.8)
[2022-11-23 18:34] LABS: ALT (SGPT) 19 U/L (8-55); AST (SGOT) 15 U/L (5-34); Albumin 4.3 g/dL (3.4-4.8); Alkaline Phosphatase 130 U/L (40-110); Anion Gap 13 mmol/L (10-20); BUN (Urea Nitrogen) 18 mg/dL (8.4-25.7); Bilirubin, Total Less than 0.2 mg/dL (0.2-1.2); Calc. Creatinine Clearance 0 mL/min (70-130); Calcium 9.9 mg/dL (7.8-10.44); Carbon Dioxide 23 mmol/L (23-31); Chloride 104 mmol/L (98-107); Estimated GFR 96; Globulin 3.3 g/dL (2.4-3.5); Glucose 209 mg/dL (80-115); Potassium 5.1 mmol/L (3.5-5.1); Protein, Total 7.6 g/dL (5.8-8.1); Sodium 135 mmol/L (136-145)
== END 2022-11-23 20:45 | disposition home or self-care (01) ==
LOC: ERS 15:57
DX: R10.30 Lower abdominal pain, unspecified (principal); E66.9 Obesity, unspecified; E78.00 Pure hypercholesterolemia, unspecified; E11.9 Type 2 diabetes mellitus without complications; I10 Essential (primary) hypertension; F17.220 Nicotine dependence, chewing tobacco, uncomplicated
CPT/HCPCS: 76870; 80053; 84484; 85025; 93005; 93976; J3010; 96372

== ENCOUNTER 2023-04-20 09:31 | Day surgery (SDC) | payer MEDICARE ==
[2023-04-14 11:59] VITALS: BMI 36.9
[2023-04-20] MEDS ORDERED: Midazolam HCl 2 mg/2 ml Vial ONE (10:38)
[2023-04-20] MEDS ORDERED: Ketamine In 0.9 % NaCl 50 MG/5 ML SYRINGE ONE (10:49)
[2023-04-20] MEDS ORDERED: PROPOFOL 200 MG/20 ML VIAL ONE (10:53)
[2023-04-20] MEDS ORDERED: Lidocaine 1% PF 5 ML VIAL ONE (10:53)
== END 2023-04-20 15:30 | disposition home or self-care (01) ==
LOC: SDC 09:31
PROVIDERS: ATTEND Internal Medicine Gastroenterology
PROC: 05H633Z Insertion of Infusion Device into Left Subclavian Vein, Percutaneous Approach (ICD-10-PCS; principal; 2023-04-20)
PROC: 0DJ08ZZ Inspection of Upper Intestinal Tract, Via Natural or Artificial Opening Endoscopic (ICD-10-PCS; 2023-04-20)
DX: Z12.11 Encounter for screening for malignant neoplasm of colon (principal); K59.03 Drug induced constipation; F44.5 Conversion disorder with seizures or convulsions; Q45.3 Other congenital malformations of pancreas and pancreatic duct; K21.9 Gastro-esophageal reflux disease without esophagitis; F41.9 Anxiety disorder, unspecified; I48.91 Unspecified atrial fibrillation; F32.A Depression, unspecified; E11.9 Type 2 diabetes mellitus without complications; I10 Essential (primary) hypertension; E78.00 Pure hypercholesterolemia, unspecified; Z86.010 Personal history of colon polyps; Z98.890 Other specified postprocedural states; Z79.01 Long term (current) use of anticoagulants; Z79.84 Long term (current) use of oral hypoglycemic drugs; Z79.4 Long term (current) use of insulin; Z79.899 Other long term (current) drug therapy
CPT/HCPCS: 36556; 43235; 43450; 45378; 82962; C1751; 36416; 71045; J2250; J2704; J3490

== ENCOUNTER 2024-05-04 13:22 | Emergency (ER) | payer MEDICARE ==
[2024-05-04] MEDS ORDERED: Ondansetron PF 4 MG/2 ML Vial ONE (14:28)
[2024-05-04 14:32] LABS: Actual Bicarbonate (HCO3v) 27.3 mEq/L (22-28); Analyzer IN Cardio ER; Base Excess 0.9 mEq/L (-2.0 to +3.0); Calcium, Ionized (venous) 1.21 mmol/L (1.16-1.32); Chloride (VBG) 100 mmol/L (98-106); Hematocrit-VBG 41 % (42.0-52.0); Hemoglobin (Hb) 13.9 g/dL (12.6-17.4); Potassium (VBG) 4.24 mmol/L (3.70-5.30); Sodium 141 mmol/L (133-146); pH (venous) 7.348 (7.32-7.43)
[2024-05-04 14:38] LABS: #Basophils 0.04 10x3/uL (0.0-0.2); %Basophils 0.5 % (0.0-1.0); %Eosinophils 1.5 % (0.0-10.0); %Lymphocytes 27.3 % (21.0-51.0); %Monocytes 12.1 % (0.0-10.0); %Neutrophils 58.2 % (42.0-75.0); Hematocrit 39.1 % (42.0-52.0); Hemoglobin 12.7 g/dL (14.0-18.0); Mean Corpuscular HGB CONC 32.5 g/dL (32.0-36.0); Mean Corpuscular Volume 86.3 fL (78.0-98.0); Mean Platelet Volume 10.4 fL (7.4-10.4); Platelet Count 170 10x3/uL (130-400); RBC Distribution Width 13.7 % (11.5-14.5); Red Blood Cell (RBC) Count 4.53 mill/uL (4.70-6.10)
[2024-05-04 14:52] LABS: ALT (SGPT) 17 U/L (8-55); AST (SGOT) 14 U/L (5-34); Albumin 3.9 g/dL (3.4-4.8); Alkaline Phosphatase 126 U/L (40-110); Anion Gap 12 mmol/L (10-20); BUN (Urea Nitrogen) 26 mg/dL (8.4-25.7); Bilirubin, Total 0.3 mg/dL (0.2-1.2); Calc. Creatinine Clearance 0 mL/min (70-130); Calcium 9.8 mg/dL (7.8-10.44); Carbon Dioxide 27 mmol/L (23-31); Chloride 103 mmol/L (98-107); Estimated GFR 55; Globulin 3.7 g/dL (2.4-3.5); Glucose 89 mg/dL (80-115); Potassium 4.1 mmol/L (3.5-5.1); Protein, Total 7.6 g/dL (5.8-8.1); Sodium 138 mmol/L (136-145)
[2024-05-04 15:11] LABS: Bacteria/HPF None Seen HPF (None Seen); Bilirubin Negative (Negative); Blood, Urine Negative (Negative); CAUTI Indications for Culture Dysuria,urgency,freq; Clarity Clear (Clear); Glucose, Urine (Dipstick) 50 mg/dL (Negative); Ketone, Urine Negative (Negative); Leukocyte Negative Leu/uL (Negative); Nitrite Negative (Negative); Protein, Urine (Dipstick) 30 mg/dL (Neg-Trace); RBC/HPF 0-3 HPF (0-3); Specific Gravity, Urine 1.025 (1.002-1.036); Squamous Epithelial 0-3 HPF (0-3); Urobilinogen Normal mg/dL (Less than 2); WBC/HPF 0-3 HPF (0-3); pH, Urine 5.5 (5.0-9.0)
[2024-05-04 15:17] LABS: Urine Culture Reflex No No
== END 2024-05-04 16:19 | disposition home or self-care (01) ==
LOC: ERS 13:22
DX: E86.0 Dehydration (principal); R11.2 Nausea with vomiting, unspecified; E11.9 Type 2 diabetes mellitus without complications; I10 Essential (primary) hypertension; F17.220 Nicotine dependence, chewing tobacco, uncomplicated; Z86.718 Personal history of other venous thrombosis and embolism
CPT/HCPCS: 80053; 81001; 82010; 82805; 82962; 85025; 96374; 99283; J2405; 36416